=== PATIENT | female | born 1975 | race Caucasian/White ===

== ENCOUNTER 2018-01-29 11:39 | Emergency (ER) | payer BC ==
[2018-01-29 11:56] VITALS: BP 135/79
[2018-01-29] MEDS ORDERED: traMADol TAB* 50 MG PO ONE (12:32)
--- NOTE | 2018-01-29 12:41 | UC ---
Shoulder Pain HPI - HPI Summary HPI Summary: WOKE FROM SLEEP AT 3 AM THIS MORNING WITH LEFT SHOULDER PAIN AND INABILITY TO MOVE HER ARM AT THE SHOULDER. FELT A LITTLE TINGLY IN THE LEFT SIDE OF HER NECK YESTERDAY BUT OTHERWISE WAS IN HER USUAL STATE OF HEALTH. DENIES ANY TRAUMA. IS RIGHT-HAND DOMINANT. - History of Current Complaint Chief Complaint: UCUpperExtremity Stated Complaint: SHOULDER INJURY Time Seen by Provider: 01/29/18 12:23 Hx Obtained From: Patient Hx Last Menstrual Period: 01/08/18 Onset/Duration: Sudden Onset, Lasting Hours, Still Present Timing: Constant Severity Initially: Moderate Severity Currently: Moderate Location Of Pain: Is Discrete @ - LEFT SHOULDER Pain Intensity: 10 Pain Scale Used: 0-10 Numeric Character: Sharp Aggravating Factor(s): Movement Associated Signs And Symptoms: Negative: Swelling, Redness, Numbness/Tingling Related History: Dominant Hand Right - Allergies/Home Medications Allergies/Adverse Reactions: Allergies Allergy/AdvReac Type Severity Reaction Status Date / Time sumatriptan [From Imitrex] Allergy anaph Verified 01/29/18 11:56 PMH/Surg Hx/FS Hx/Imm Hx Endocrine History: Diabetes Other History Of: Negative For: Anticoagulant Therapy - Surgical History Surgical History: Yes Surgery Procedure, Year, and Place: tubal ligation - Family History Known Family History: Positive: Non-Contributory - Social History Alcohol Use: Occasionally Substance Use Type: None Smoking Status (MU): Never Smoked Tobacco Review of Systems All Other Systems Reviewed And Are Negative: Yes Constitutional: Positive: Negative Skin: Positive: Negative Respiratory: Positive: Negative Cardiovascular: Positive: Negative Gastrointestinal: Positive: Negative Musculoskeletal: Positive: Arthralgia, Decreased ROM, Myalgia Physical Exam Triage Information Reviewed: Yes Appearance: Well-Nourished, Pain Distress - MODERATE Vital Signs: Initial Vital Signs Temp 98.6 F 01/29/18 11:53 Pulse 84 01/29/18 11:53 Resp 17 01/29/18 11:53 BP 135/79 01/29/18 11:53 Pulse Ox 100 01/29/18 11:53 Vital Signs Reviewed: Yes Eyes: Positive: Conjunctiva Clear ENT: Positive: Hearing grossly normal Neck: Positive: Supple Respiratory: Positive: No respiratory distress, No accessory muscle use Cardiovascular: Positive: Pulses Normal Abdomen Description: Positive: Soft Musculoskeletal: Positive: ROM Limited @ - LEFT SHOULDER LIMITED IN BOTH ACTIVE AND PASSIVE ROM Neurological: Positive: Alert Psychological: Positive: Age Appropriate Behavior Skin: Negative: Rashes Diagnostics - Radiology LEFT SHOULDER XRAYS Radiology Interpretation Completed By: Radiologist Summary of Radiographic Findings: UNREMARKABLE Shoulder Course/Dx - Differential Dx/Diagnosis Provider Diagnosis: Adhesive capsulitis of left shoulder Discharge - Sign-Out/Discharge Documenting (check all that apply): Patient Departure All imaging exams completed and their final reports reviewed: Yes - Discharge Plan Condition: Stable Disposition: HOME Prescriptions: Cyclobenzaprine TAB* [Flexeril TAB*] 10 mg PO BID PRN #30 tab PRN Reason: Pain HYDROcodone/ACETAMIN 5-325 MG* [[place] 5-325 TAB*] 1 tab PO Q6H PRN #20 tab MDD 4 PRN Reason: Pain Naproxen [Naproxen 500 mg tab] 500 mg PO BID PRN #30 tablet PRN Reason: Pain Patient Education Materials: Adhesive Capsulitis (ED) Referrals: Joseph Palm MD [Medical Doctor] - 2 Weeks Wilian Cote [Primary Care Provider] - If Needed Additional Instructions: X-RAY OF YOUR LEFT SHOULDER TODAY IS UNREMARKABLE. WEAR THE SLING NEEDED. NAPROXEN TWICE DAILY FOR DISCOMFORT. HYDROCODONE FOR BREAKTHROUGH PAIN. TAKE MUSCLE RELAXER BEFORE BED. PHYSICAL THERAPY REFERRAL PROVIDED TODAY. FOLLOW-UP WITH ORTHOPEDICS WITHIN THE NEXT COUPLE OF WEEKS. ADHESIVE CAPSULITIS (FROZEN SHOULDER) What is a frozen shoulder? A frozen shoulder is a condition that causes the shoulder to be stiff and unable to move easily. When people have a frozen shoulder, the tissue around the shoulder joint gets thick and tight. This might happen after a persons shoulder gets hurt or if he or she has shoulder surgery. What are the symptoms of a frozen shoulder? People with a frozen shoulder usually have a stiff and painful shoulder and trouble reaching overhead or around to their lower back. Will I need tests? Probably not. Your doctor or nurse will talk with you and do an exam. Often that is all that is needed to diagnose frozen shoulder. But your doctor or nurse might want to do an imaging test, such as an X-ray or MRI scan. Imaging tests create pictures of the inside of the body. How is a frozen shoulder treated? In most cases, a frozen shoulder will get better on its own, but it can take months to heal completely. To help your shoulder get better, you can: -Rest your shoulder Avoiding raising your arm overhead, reaching, and lifting things. -Take a pain-relieving medicine Ask your doctor or nurse about taking an over -the-counter medicine for pain, such as acetaminophen (sample brand name: Tylenol), ibuprofen (sample brand names: Advil, Motrin), or naproxen (sample brand name: Aleve). -Ask your doctor about exercises that can help At first, the most important thing to do is to rest your shoulder. Later, when the worst of the pain has passed, ask your doctor if its safe to start trying some simple exercises. If he or she says its OK, you can slowly start to do certain exercises. After you are comfortable with simple range of motion exercises, your doctor, nurse, or physical therapist (exercise expert) can suggest some other exercises to make the shoulder muscles stronger. He or she can show you how to do these exercises and tell you when to start them and how often to do them. Any time you do shoulder exercises, make sure to start slowly and make the exercises harder over time. Also, know that some pain is normal, but its important not to push it. If you have sharp or tearing pain, stop what youre doing and let your doctor or nurse know. What if my shoulder doesnt get better? If your symptoms dont get better, talk with your doctor or nurse about other possible treatments, such as: -Getting a shot of medicine or fluid into the shoulder -Surgery - Billing Disposition and Condition Condition: STABLE Disposition: Home
== END 2018-01-29 13:37 | disposition home or self-care (01) ==
LOC: UCEAST 11:39
DX: M75.02 Adhesive capsulitis of left shoulder (principal); Z88.8 Allergy status to other drugs, medicaments and biological substances
CPT/HCPCS: 99213; A9270-GY; G0463

== ENCOUNTER 2018-02-05 08:32 | Inpatient (IN) | payer BC ==
[2018-02-05] MEDS ORDERED: ceFAZolin 1 GM ADVAN(*) 1 GM in NS 0.9% 50 ML* 50 ML IVPB ONE (09:12)
--- NOTE | 2018-02-05 09:27 | ED ---
Upper Extremity Pain - HPI Summary HPI Summary: Patient is a 42-year-old female presenting to the ED with left shoulder erythema , warmth and pain since last week. She was placed on Augmentin 2 days by her PCP, however she endorses worsening symptoms. She endorses fevers, sweats, chills. She's never had anything like this before. She denies any known insect bites or trauma to the area. Decreased range of motion. Denies any nausea, vomiting, numbness or tingling to the arm. She does endorse some pain to the anterior left chest wall, left sided neck pain and pain also radiating up into the shoulder. - History of Current Complaint Chief Complaint: EDExtremityUpper Stated Complaint: PAIN AND SWELLING IN LEFT SHOULDER Time Seen by Provider: 02/05/18 08:48 Hx Obtained From: Patient Hx Last Menstrual Period: 01/08/18 Mechanism Of Injury: Unknown Onset/Duration: Started Days Ago Timing: Constant Severity Initially: Severe Severity Currently: Severe Pain Location: Shoulder - left Character: Aching Aggravating Factor(s): Movement, Internal/External Rotation, Abduction, Adduction Alleviating Factor(s): Rest Associated Signs & Symptoms: Positive: Swelling, Redness. Negative: Weakness, Numbness/Tingling, Chest Pain, Neck Pain, Diaphoresis, Nausea, Vomiting Related History: Dominant Hand Right - Risk Factors Non-Orthopedic Risk Factor: Negative DVT Risk Factors: Negative Septic Arthritis Risk Factor: Negative Compartment Syndrome Risk Factors: Pain - Allergies/Home Medications Allergies/Adverse Reactions: Allergies Allergy/AdvReac Type Severity Reaction Status Date / Time sumatriptan [From Imitrex] Allergy anaph Verified 02/05/18 08:47 Home Medications: Home Medications Amoxicillin/Clavulanate TAB* [Augmentin TAB 875*] 1 tab PO BID 02/05/18 [ History Confirmed 02/05/18] Atorvastatin* [Lipitor*] 80 mg PO DAILY 02/05/18 [History Confirmed 02/05/18] Metformin HCl 500 mg PO BID 02/05/18 [History Confirmed 02/05/18] PMH/Surg Hx/FS Hx/Imm Hx Previously Healthy: Yes Endocrine/Hematology History: Reports: Hx Diabetes - po meds Denies: Hx Anticoagulant Therapy, Hx Thyroid Disease Cardiovascular History: Denies: Hx Hypertension, Hx Pacemaker/ICD Respiratory History: Denies: Hx Asthma, Hx Chronic Obstructive Pulmonary Disease (COPD) History: Denies: Hx Renal Disease Neurological History: Denies: Hx Dementia, Hx Seizures Psychiatric History: Denies: Hx Substance Abuse - Surgical History Surgery Procedure, Year, and Place: tubal ligation - Immunization History Date of Tetanus Vaccine: UNKNOWN Date of Influenza Vaccine: NO Hx Pertussis Vaccination: No Immunizations Up to Date: Yes Infectious Disease History: No Infectious Disease History: Denies: Hx Hepatitis, Hx Human Immunodeficiency Virus (HIV), Traveled Outside the [place] in Last 30 Days - Family History Known Family History: Positive: Non-Contributory - Social History Occupation: Employed Full-time Lives: With Family Alcohol Use: Occasionally Hx Substance Use: No Substance Use Type: Reports: None Smoking Status (MU): Never Smoked Tobacco Review of Systems Constitutional: Negative Negative: Fever, Chills, Fatigue, Skin Diaphoresis Negative: Palpitations, Chest Pain Negative: Shortness Of Breath, Cough Negative: Abdominal Pain, Vomiting, Diarrhea, Nausea Positive: no symptoms reported, see HPI Positive: Arthralgia - left shoulder, Myalgia Positive: Other - erythematous warm and swollen 4x4 area to the L clavicular area All Other Systems Reviewed And Are Negative: Yes Physical Exam Triage Information Reviewed: Yes Vital Signs On Initial Exam: Initial Vitals Temp Pulse Resp BP Pulse Ox 98 F 85 16 129/66 97 02/05/18 08:38 02/05/18 08:38 02/05/18 08:38 02/05/18 08:38 02/05/18 08:38 Vital Signs Reviewed: Yes Appearance: Positive: Ill-Appearing Skin: Positive: Diaphoretic Head/Face: Positive: Normal Head/Face Inspection Eyes: Positive: EOMI, YUNG, Conjunctiva Clear Neck: Positive: Supple Respiratory/Lung Sounds: Positive: Clear to Auscultation, Breath Sounds Present Cardiovascular: Positive: RRR, Pulses are Symmetrical in both Upper and Lower Extremities. Negative: Leg Edema Left, Leg Edema Right Musculoskeletal: Positive: Pain @ - erythematous warm and swollen 4x4 area to the L clavicular area Neurological: Positive: Alert, Oriented to Person Place, Time, Speech Normal Psychiatric: Positive: Normal, Affect/Mood Appropriate Diagnostics - Vital Signs Vital Signs Temp Pulse Resp BP Pulse Ox 02/05/18 08:38 98 F 85 16 129/66 97 - Laboratory Result Diagrams: 02/05/18 09:18 02/05/18 09:27 Lab Statement: Any lab studies that have been ordered have been reviewed, and results considered in the medical decision making process. Course/Dx - Course Course Of Treatment: On physical examination, there is a 5 x 5 cm erythematous, warm, slightly elevated area just over the left clavicle without significant extension of erythema to the neck and chest wall. However, she endorses tenderness to these area and also radiation into the deltoid. She has been on Augmentin 2 days per her PCP. Despite this, she continues to worsen. She is endorsing fevers, sweats, chills. She's never had anything like this before. Endorses diabetic history 2 years. She has not been able to move without discomfort x [address] chest with IV contrast obtained: IMPRESSION: #. Soft tissue infection over the dorsal aspect of the LEFT shoulder at the level of the. distal third of the clavicle associated loculated abscess collection measuring up to 4 x 4. by 2.3 cm primarily involving the subcutaneous tissue plane as well as the superficial. aspect of the deltoid muscle. #. Associated reactive LEFT axillary adenopathy. #. Trace pleural effusions and basilar atelectasis. #. [place] images saved on the [facility]. Discussed case with Dr. Angel who agrees to see patient in ED. Subsequently performed I and D bedside and cultures obtained and sent. During ED visit total of 6mg morphine given, Kefzol, Zosheyn, fluids, kept NPO. Discussed with hospitalist, Dr. Ignacio who will admit for observation with possibility of surgical intervention tomorrow. - Diagnoses Differential Diagnosis/HQI/PQRI: Positive: Other - septic joint, cellulitis, abscess, myositis Provider Diagnoses: Abscess - Physician Notifications Discussed Care of Patient With: Antolin Angel Instructed by Provider To: Admit As Inpatient Discharge - Sign-Out/Discharge Documenting (check all that apply): Patient Departure - Discharge Plan Condition: Good Disposition: ADMITTED TO [facility] - Billing Disposition and Condition Condition: GOOD Disposition: Admitted to [facility]
[2018-02-05 09:48] LABS: Hematocrit 37 % (35-47); Mean Corpuscular HGB Conc 33 g/dl (31-36); Mean Corpuscular Hemoglobin 28 pg (27-31); Mean Corpuscular Volume 85 fL (80-97); Mean Platelet Volume 6.8 fL (7.4-10.4); Platelet Count 330 10^3/ul (150-450); Red Blood Count 4.29 10^6/ul (4.00-5.40); Red Cell Distribution Width 14 % (10.5-15); White Blood Count 17.3 10^3/ul (3.5-10.8)
[2018-02-05 10:03] LABS: Albumin 3.6 g/dL (3.2-5.2); Albumin/Globulin Ratio 0.9 (1-3); BUN/Creatinine Ratio 15.2 (8-20); C Reactive Protein 246.57 mg/L (<8.01); Calcium 9.2 mg/dL (8.6-10.3); EGFR African American 119.4 (>60); EGFR Non-African American 98.7 (>60); Globulin 3.8 g/dL (2-4); Potassium 3.6 mmol/L (3.5-5.0); Total Bilirubin 0.4 mg/dL (0.2-1.0); Total Protein 7.4 g/dL (6.4-8.9)
[2018-02-05 10:15] LABS: Immature Granulocytes 4 % (0-9); Lymphocytes % 16 %; Metamyelocytes % 1 % (0-2); Monocytes % 5 %; Myelocytes % 2 % (0-1); Neutrophil % 74 %
[2018-02-05 10:16] LABS: ABS Neutrophils 13.5 10^3/ul (1.5-7.7)
[2018-02-05 10:17] LABS: ABS Eosinophils 0.2 10^3/ul (0-0.6)
[2018-02-05] MEDS ORDERED: Iodixanol* (CONTRAST) 320 MG/ML 100 ML SDV IV ONE (10:22)
[2018-02-05 10:55] LABS: Erythrocyte Sed Rate 103 mm/Hr (0-14)
[2018-02-05] MEDS ORDERED: Piperacillin/Tazobac ADVAN(*) 3.375 GM in NS 0.9% 100 ML* 100 ML IVPB ONE (11:24)
[2018-02-05] MEDS ORDERED: NS 0.9% 1000 ML** 1,000 ML IV SCH (11:30)
[2018-02-05] MEDS ORDERED: Morphine VIAL* 4 MG/ML VIAL (1 ml vial) IV ONE (11:47)
[2018-02-05] MEDS ORDERED: NS 0.9% 1000 ML** 1,000 ML IV ONE (11:47)
[2018-02-05] MEDS ORDERED: Zosyn per Pharmacy* NOTE FOLLOW UP SCH (12:00)
[2018-02-05] MEDS ORDERED: Vancomycin per Pharmacy* NOTE FOLLOW UP SCH (12:00)
[2018-02-05] MEDS ORDERED: Vancomycin(*) 1,500 MG in NS 0.9% 250 ML* 250 ML IVPB ONE (12:30)
[2018-02-05] MEDS ORDERED: Benzocaine/Butamben/Tetracain* SPRAY TOPICAL ONE (12:38)
[2018-02-05] MEDS ORDERED: Morphine VIAL* 4 MG/ML VIAL (1 ml vial) ONE (12:43)
[2018-02-05] MEDS ORDERED: Ondansetron INJ* 2 MG/ML VIAL IV PRN (13:10)
[2018-02-05] MEDS: Morphine VIAL* 4 MG/ML VIAL (1 ml vial) IV PRN (13:10)
[2018-02-05] MEDS: HYDROcodone/ACETAMIN 5-325 MG* 1 TAB PO PRN ×2 (15:55→22:18)
[2018-02-05] MEDS ORDERED: Dextrose 50% Syringe 50 ML* 25 GM/50 ML SYRINGE IV PUSH PRN (17:10)
[2018-02-05] MEDS: metFORMIN* 500 MG TAB PO SCH (18:30)
[2018-02-05] MEDS: ZOSYN 3.375 GM Q8H per EXTENDED INFUSION IVPB SCH ×4 (19:41→23:12)
--- NOTE | 2018-02-05 21:17 | HP ---
CC: JOLIE Moore* HISTORY AND PHYSICAL: DATE OF ADMISSION: 02/05/18 PRIMARY CARE PROVIDER: JOLIE Moore CHIEF COMPLAINT: Left shoulder pain. HISTORY OF PRESENT ILLNESS: Ms. Villarreal is a 42-year-old female who has a history of diabetes and hyperlipidemia, who presents to the emergency room with complaints of approximately 1 week of left shoulder pain, redness, and swelling. The patient states that 1 week ago, this past Wednesday, she noted that there was some mild discomfort in the left superior shoulder. By Wednesday a.m. , she states that she cannot move her arm around at all. She states she went to urgent care. At that point, she was prescribed pain medication and Flexeril. By this past , she was identified to have an abscess on the superior aspect of the left shoulder. She was started on Augmentin. She states that has grown in size about 10 times over the last 2 days. She states that the pain has been quite severe. She has had fevers up to 103 as well as chills/rigors. The area is noted to be red. It is indurated and tender to palpation. The patient denies any IV drug use. PAST MEDICAL HISTORY: 1. Type 2 diabetes. 2. Hyperlipidemia. PAST SURGICAL HISTORY: Tubal ligation. MEDICATIONS: 1. Metformin 500 mg p.o. b.i.d. x1 week (will complete on 02/09/18, then 1000 mg daily). 2. Naproxen 500 mg p.o. b.i.d. p.r.n. pain. 3. [place] 5/325 one tab p.o. q.6 hours p.r.n. pain. 4. Flexeril 10 mg p.o. b.i.d. p.r.n. spasm. 5. Lipitor 80 mg p.o. daily. 6. Augmentin 875 mg 1 tab p.o. b.i.d. ALLERGIES: IMITREX. FAMILY HISTORY: Mom is living, she is 59, has a history of diabetes and hypertension. Dad is also living. He has diabetes. SOCIAL HISTORY: The patient does not smoke. She drinks alcohol on occasion. 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 She is . She has 3 children. Her , Keyshawn, is her healthcare proxy. REVIEW OF SYSTEMS: A complete 11-system review of systems is obtained. Pertinent positives and negatives are as per HPI, and in addition, the patient states that her appetite has been very poor and she has felt dizzy recently. PHYSICAL EXAMINATION GENERAL: The patient is a well-developed, middle-aged female seen sitting in the stretcher, in moderate distress after undergoing I and D with Dr. Angel. VITAL SIGNS: Blood pressure 98/68, pulse 80, respirations 16, temp 98, O2 sat 97% on room air. HEENT: Pupils are equal and round. Extraocular muscles are intact. Oropharynx is clear. Oral mucosa is moist. There is no submandibular, cervical or supraclavicular adenopathy. Thyroid is not enlarged. No thyroid nodules noted. PULMONARY: Lungs are clear to auscultation bilaterally. CARDIAC: Normal S1, S2. Regular rate and rhythm. I do not appreciate any murmurs. ABDOMEN: Bowel sounds are present. Abdomen is soft, nontender, and nondistended. MUSCULOSKELETAL: There is no cyanosis or clubbing in the digits. There is full active range of motion of the lower extremities and right upper extremity. NEUROLOGIC: Cranial nerves II to XII are grossly intact. Sensation is intact to light touch throughout. Strength is normal. PSYCHIATRIC: The patient is alert. She is oriented x3. Affect appears appropriate. SKIN: Warm and dry. There are no rashes. The area of abscess was just I and D 'd by Dr. Angel at the time of my arrival to the patient's room. I did not undo the bandage. Dr. Angel indicates that the area was indurated and red. DIAGNOSTIC STUDIES/LAB DATA: Labs: WBC 17.3, hemoglobin 12.0, hematocrit 37, platelets 330. Sodium 134, potassium 3.6, chloride 100, CO2 24, BUN 10, creatinine 0.66, glucose 253, calcium 9.2. Bilirubin 0.4, AST 12, ALT 17, alk phos 113, CRP 246.57, albumin 3.6. CT chest reveals soft tissue infection over the dorsal aspect of the left shoulder at the level of the distal third of the clavicle associated with loculated abscess collection measuring up to 4 x 4 x 10.3 cm primarily involving the subcutaneous tissue plane as well as the superficial aspect of the deltoid muscle. There is associated left reactive axillary adenopathy. There is trace pleural effusion and basilar atelectasis. ASSESSMENT AND PLAN: Ms. Villarreal is a 42-year-old diabetic who had not been taking her medications until just recently, who presents to the emergency room with complaints of 1 week of progressive left shoulder pain and infection. 1. Abscess of the left shoulder. The patient was seen by Dr. Angel, and incision and drainage has been performed. He will be following up the patient later today to determine if she needs to go to the OR for further washout or any further imaging. For now, the patient will be started on vancomycin and Zosyn while awaiting the culture from the incision and drainage. From a preoperative evaluation standpoint, the patient will need an EKG, which I am obtaining now. She does not give me any history to make me concerned for proceeding to the OR as long as her EKG looks acceptable and without concerning features. 2. Type 2 diabetes. The patient will be continued on her usual dose of metformin 500 mg p.o. twice daily, and in addition, lispro sliding scale will be ordered. Her hemoglobin A1c on 01/24/18, was elevated at 8.1%. 3. Hyperlipidemia. We will continue Lipitor at home dose. 4. DVT prophylaxis: According to the Adult Thrombosis Prophylaxis Risk Factor Assessment Guide, the patient has a total risk factor score of 2 making her moderate risk for now. Ambulation will be utilized as DVT prophylaxis; however , the patient has a prolonged hospitalization. Subcutaneous heparin should be initiated. 5. Code status is full. TIME SPENT: Sixty-five minutes was spent admitting this patient. [id number]/[facility] #: [id number] DAVID
[2018-02-05] MEDS: Insulin LISPRO* 1 UNITS UNIT SUBCUT SCH (22:19)
--- NOTE | 2018-02-05 23:20 | CONS ---
CONSULTATION REPORT: DATE OF CONSULT: 02/05/18 REASON FOR CONSULT: Left shoulder swelling and pain, possible infection. HISTORY OF PRESENT ILLNESS: The patient is a 42-year-old woman with poorly controlled diabetes zohreh colindres who presented to the emergency room today with left shoulder pain, swelling, and erythema, which has been present for approximately 7 days. The patient describes having been diagnosed with diabetes for the past 2 years since approximately th e age of 40. The patient acknowledges that her glycemic control has not been excellent and states th at in the past her hemoglobin A1c has been as high as 9. The patient's son acknowledges that she cou ld be better about taking her diabetes medications. The patient states that the symptoms started approximately 7 days ago on 01/29/18. The patient awoke in the morning with some soft tissue swelling and pain overlying the left clavicle. At that time nor at any point in the recent past has the patient had any cut in the overlying skin. She denied any i nsect bite. No spider bite. No abrasion. No laceration. No cut of any type. No similar symptoms in the past. No history of prior left shoulder injury or left shoulder pain. The patient's left shoulder pain starting 7 days ago prevented her from moving fully her left shoulde r. This limitation in motion was secondary to pain about the shoulder. Throughout the week, the symptoms worsened. The patient went to Urgent Care on 01/29/18. In the note from that urgent care encounter, the patien jonathan was noted to have symptoms starting that morning at 3 a.m. on 01/29/18. Her greatest complaint at that time was inability to move the shoulder. She also acknowledged some tingling on the left neck. It should be noted that the patient is right-hand dominant. The patient was treated with cyclobenzaprine muscle relaxant as well as Anita for pain and naproxen. Her diagnosis given was of adhesive capsulitis. The patient was recommended to follow up with Ortho pedic Surgery. The patient had x-rays obtained that day. She was given a sling to manage her discom fort. The patient did not follow up with Orthopedic Surgery that same week. Instead, she went [facility] approximately 2 days ago. She was started on an antibiotic, oral, Augmentin. She states that she has been on that for 2 days, but that the pain, limitation of range of motion, swelli ng, and erythema has increased despite being on the antibiotic. The patient has had fever, sweats, and chills at home. The patient describes having a temperature as elevated as 103 degrees Fahrenheit. PAST MEDICAL HISTORY: Diabetes, hypercholesterolemia. PAST SURGICAL HISTORY: Tubal ligation. HOME MEDICATIONS: 1. Atorvastatin. 2. Metformin. 3. Augmentin. The Augmentin for the past 2 days starting 02/03/18. ALLERGIES: SUMATRIPTAN (anaphylaxis). SOCIAL HISTORY: The patient lives with her and has at least 1 child. Right-hand dominant. T he patient admits to perhaps poor medical adherence for diabetes mellitus. The patient is fully empl oyed. REVIEW OF SYSTEMS: Fever, sweats, and chills have been present. No headache, chest pain, shortness of breath, heart palpitations. No nausea or vomiting. No abdominal pain. No numbness or tingling d escribed today, although the patient had described some tingling of the left neck on 01/29/18. The p atient has been diaphoretic. PHYSICAL EXAM: No acute distress. Alert and oriented, appropriate mood and affect. Appropriate hunter ss and hygiene. Well-coordinated bilateral upper and lower extremities. The patient was examined in an emergency room bay. The patient appears slightly sweaty. The patient did not appear toxic. Most recent vital signs were obtained at 7:15 this evening. They show a body temperature of 98.3 deg zac Fahrenheit, pulse 88, blood pressure 108/48, respiratory of 20, and oxygen saturation 98% on alverto m air. The patient has been afebrile today with a T-max of 98.3 degrees Fahrenheit. At her 01/29/18 visit, her temperature was 98.6 degrees Fahrenheit. The patient's left shoulder has soft tissue swelling and erythema focally superior to the midshaft of the clavicle and posterior to the clavicle in the area of the trapezius muscle. Tenderness to palpa tion is present there, as is some induration. This is a focal area of swelling. Passive range of motion of the left shoulder reveals pain and the patient not tolerating passive forw alem flexion and abduction of more than 20 degrees because of discomfort in the area of the collection , soft tissue swelling. The patient does tolerate external rotation of 20 degrees to internal rotati on to 70 degrees with the arm at the side. Neurovascularly intact distally. DIAGNOSTIC STUDIES/LAB DATA: White blood cell count 17.3 with a neutrophil count of 74%. ESR 103. CRP of 246.57. Blood glucose of 253 and later of 216. I do not see a hemoglobin A1c value. Imaging: Left shoulder x-rays obtained 01/29/18 were reviewed by me. These show no fractures. Ther e is a small curve at the anterior aspect of the acromion. No significant degenerative changes prese nt. Possibly just in the context of later findings, there may be some lucency to the distal clavicle representing possible subchondral cysts. CT scan of the chest with contrast had been ordered by emergency room staff. I reviewed this. It de monstrated what looked to be a fluid collection, abscess measuring 4 x 4 x 2.3 cm in the subcutaneous tissue superior and posterosuperior to the midshaft left clavicle as well as some reactive left axil jeanine adenopathy. Trace pleural effusion and basilar atelectasis. ASSESSMENT: Left shoulder subcutaneous abscess. PLAN: 1. I have discussed the patient's diagnosis with her and her son in the emergency department. 2. I had some concern regarding the patient's pain with passive range of motion of the shoulder, but thought that this could be due only to a subcutaneous abscess. However, I wanted to make sure that t his was not related to infection of the AC joint or glenohumeral joint of the left shoulder. 3. Radiology had felt that the abscess was localized to the subcutaneous space on the CT scan with c ontrast of the chest and I discussed this with them. 4. I decided to perform an incision and decompression in the emergency department. I did this after speaking with the patient. My intentions were severalfold. I wanted to get a sample of the infected material so that we could target our antibiotic coverage. I also wanted to provide the patient with some immediate pain relief as she was clearly in discomfort in the emergency room. I also thought i t would be good to know if this fully relieved her pain or if the patient still had pain which would make me more suspicious of a possible deeper infection that did not show up on CT scan with contrast. PROCEDURE: Incision and decompression, debridement, left shoulder subcutaneous tissue performed in t he emergency room. Verbal consent, sterile technique, tolerated well. The patient was given several doses of morphine IV by emergency room nursing. I prepped the left evelio ulder area overlying the fluid collection, apparent. I cleaned the skin with ChloraPrep. I injected lidocaine 1% approximately 5 cc in the area of the planned incision. I waited 5 minutes until the s kin was numb. I then performed a skin incision, vertical in line with Elodia's lines. This was appr oximately 2 cm in length. Initially, there was only blood. I used a hemostat to dissect into the perkins bcutaneous tissue and then there was some pus that emanated. There was significant pus that emanated. A significant volume of pus was produced from this skin incision. I manipulated the shoulder in th e vicinity of the incision to express a significant quantity of pus. I obtained 2 culture swabs and these were sent for aerobic and anaerobic cultures. I continued to express the pus. I then injected 30 cc of sterile saline and expressed that from the wound. I then took half-inch sterile packing an d packed the wound. I left the wound open. I did not close it and I left packing in it. I then plac ed a dry sterile dressing consisting of 4x4s and ABD. I performed an exam of the patient's left shoulder immediately after the procedure. She tolerated mor e movement of the left shoulder passively. I then returned to her bedside 2 to 3 hours later. The p atient was able to tolerate 45 degrees of external to 70 degrees of internal rotation with the arm at the side. The patient certainly tolerated more passive forward flexion or abduction, but I would no t say she tolerated more than 45 degrees. This was concerning for possible deeper infection. I ordered an urgent MRI of the left shoulder to assess for the exact shape of the subcutaneous absces s. I also wanted to see if there was any involvement of the AC and glenohumeral joints, left shoulde r. MRI results returned. I read the report, reviewed the images, and discussed with the radiologist. T here was a clear subcutaneous abscess. There was bone marrow edema of the distal clavicle, the dista l 3 cm, and to a lesser extent some adjacent acromion. A small AC joint effusion and some erosions o f the distal clavicle, hard to determine if those erosions are acute or chronic. Radiologist thought that AC joint fluid was likely continuous with the subcutaneous abscess. There was no significant f luid noted in the glenohumeral joint. Only some minimal fluid that the radiologist believed was like ly a small reactive effusion. Gram stain results were reviewed. They show Gram-positive cocci 2+. Recommend broad spectrum IV antibiotics. The patient was started on vancomycin and Zosyn by the Hosp italist Service. The patient will be admitted to the Hospitalist Service, medically managed, and we will obtain preope rative optimization and clearance. N.p.o. after midnight. To the operating room in the morning for irrigation and debridement, arthroscopic, of the left should er glenohumeral joint as well as subacromial space as well as a likely distal clavicle resection. I will also perform an open incision, irrigation, debridement of the patient's subcutaneous abscess abo ut the superior shoulder. I have considered operative treatment today. However, MRI results were only returned late in the aft [facility]. The patient has had symptoms already for 7 days. She is on IV antibiotics. There was no leandro ar connection yet of infection between the AC joint and glenohumeral joint. [id number]/[facility] #: [id number]
[2018-02-06] MEDS: Morphine VIAL* 4 MG/ML VIAL (1 ml vial) IV PRN ×2 (01:46→05:46)
[2018-02-06] MEDS ORDERED: Midazolam* 1 MG/ML 2 ML VIAL (2 MG) ONE (08:13)
[2018-02-06] MEDS ORDERED: Succinylcholine* 20 MG/ML 10 ML VIAL ONE (08:13)
[2018-02-06] MEDS ORDERED: Lidocaine 2% PF * 5 ML VIAL ONE (08:13)
[2018-02-06] MEDS ORDERED: fentaNYL* 50 MCG/ML 2 ML VIAL (100 MCG VIAL) ONE (08:13)
[2018-02-06] MEDS ORDERED: Propofol* 10 MG/ML 20 ML BTL ONE (08:13)
[2018-02-06] MEDS ORDERED: EPINEPHRINE 1 MG/ML 1 ML VIAL ONE ×2 (08:28→11:29)
[2018-02-06] MEDS: Insulin LISPRO* 1 UNITS UNIT SUBCUT SCH ×4 (08:39→21:06)
[2018-02-06] MEDS: metFORMIN* 500 MG TAB PO SCH ×2 (08:41→17:37)
[2018-02-06] MEDS: Atorvastatin* 80 MG TAB PO SCH (08:42)
[2018-02-06] MEDS ORDERED: ceFAZolin 1 GM ADVAN(*) 1 GM ADDV.VIAL IVPB ONE (08:51)
[2018-02-06] MEDS ORDERED: Bupivacaine 0.5% W/EPI SDV* 30 ML VIAL ONE (09:37)
[2018-02-06] MEDS ORDERED: Ondansetron INJ* 2 MG/ML VIAL ONE (09:59)
[2018-02-06] MEDS ORDERED: Metoclopramide IV* 5 MG/ML 2 ML VIAL ONE (09:59)
[2018-02-06] MEDS ORDERED: Dexamethasone IV* 4 MG/ML 1 ML (4 MG) ONE (09:59)
[2018-02-06] MEDS ORDERED: Ketorolac INJ* 30 MG/ML 1 ML VIAL ONE (09:59)
[2018-02-06] MEDS ORDERED: oxyCODONE TAB* 5 MG TAB PO PRN (10:33)
[2018-02-06] MEDS ORDERED: Acetaminophen TAB* 325 MG PO PRN (10:33)
[2018-02-06] MEDS ORDERED: DiMENhydriNATE IV* 50 MG/ML VIAL IV PUSH PRN (10:33)
[2018-02-06] MEDS ORDERED: Naloxone* 0.4 MG/ML 1 ML VIAL IV PRN (10:33)
[2018-02-06] MEDS ORDERED: Magnesium Hydroxide LIQ* 30 ML UDC PO PRN (11:26)
[2018-02-06] MEDS ORDERED: Morphine VIAL* 4 MG/ML VIAL (1 ml vial) IV PRN (11:26)
[2018-02-06] MEDS ORDERED: Bisacodyl SUPP* 10 MG SUPP PR PRN (11:26)
[2018-02-06] MEDS ORDERED: Cyclobenzaprine TAB* 10 MG PO PRN (11:26)
[2018-02-06] MEDS ORDERED: oxyCODONE/Acetamin 5/325 MG* TAB PO PRN ×2 (11:26)
[2018-02-06] MEDS ORDERED: diPHENhydraMINE IV* 50 MG/ML 1 ml VIAL (BENADRYL) IV PRN (11:26)
[2018-02-06] MEDS ORDERED: Ondansetron INJ* 2 MG/ML VIAL IV PRN (11:26)
[2018-02-06] MEDS ORDERED: HYDROmorphone INJ1* 1 MG/ML SYRINGE ONE (11:58)
[2018-02-06] MEDS: HYDROmorphone INJ1* 1 MG/ML SYRINGE IV PRN ×3 (11:59→12:22)
[2018-02-06] MEDS ORDERED: Lactated Ringers 1000 ML Bag* 1,000 ML IV SCH (12:00)
[2018-02-06] MEDS ORDERED: Vancomycin per Pharmacy* NOTE FOLLOW UP SCH (12:00)
[2018-02-06] MEDS ORDERED: Insulin LISPRO* 1 UNITS UNIT SUBCUT ONE (12:08)
[2018-02-06] MEDS: ZOSYN 3.375 GM Q8H per EXTENDED INFUSION IVPB SCH ×6 (12:16→17:27)
[2018-02-06] MEDS ORDERED: oxyCODONE TAB* 5 MG TAB ONE (12:18)
[2018-02-06 14:44] LABS: Hematocrit 34 % (35-47); Hemoglobin 11.2 g/dl (12.0-16.0); Mean Corpuscular HGB Conc 33 g/dl (31-36); Mean Corpuscular Hemoglobin 28 pg (27-31); Mean Corpuscular Volume 86 fL (80-97); Mean Platelet Volume 6.2 fL (7.4-10.4); Platelet Count 355 10^3/ul (150-450); Red Blood Count 3.97 10^6/ul (4.00-5.40); Red Cell Distribution Width 14 % (10.5-15); White Blood Count 18.8 10^3/ul (3.5-10.8)
[2018-02-06] MEDS: Acetaminophen TAB* 325 MG PO SCH ×2 (14:45→19:40)
[2018-02-06] MEDS ORDERED: Vancomycin(*) 1,500 MG in NS 0.9% 250 ML* 250 ML IVPB ONE (15:00)
[2018-02-06 15:39] LABS: Immature Granulocytes 13 % (0-9); Lymphocytes % 12 %; Monocytes % 1 %; Neutrophil % 73 %
[2018-02-06 15:40] LABS: ABS Basophils 0.1 10^3/ul (0-0.2); ABS Eosinophils 0.1 10^3/ul (0-0.6); ABS Lymphocytes 2.3 10^3/ul (1.0-4.8); ABS Monocytes 0.4 10^3/ul (0-0.8); ABS Neutrophils 15.9 10^3/ul (1.5-7.7); ABS Nucleated RBC 0 10^3/ul; Eosinophil % 0.3 %; Lymphocyte % 12.5 %; Nucleated Red Blood Cells % 0.1
[2018-02-06] MEDS ORDERED: NS 0.9% 1000 ML** 1,000 ML IV SCH (16:30)
[2018-02-06] MEDS: oxyCODONE TAB* 5 MG TAB PO PRN (17:28)
--- NOTE | 2018-02-06 18:09 | PN ---
Subjective Date of Service: 02/06/18 Interval History: Seen after OR today Pain well controlled No SOB, cough, N/V, CP Objective Active Medications: Acetaminophen (Tylenol Tab*) 975 mg PO Q8H [facility] Last Admin: 02/06/18 14:45 Dose: 975 mg Hydrocodone Bitart/Acetaminophen ([place] 5-325 Tab*) 1 tab PO Q6H PRN PRN Reason: PAIN Last Admin: 02/05/18 22:18 Dose: 1 tab Atorvastatin Calcium (Lipitor*) 80 mg PO DAILY [facility] Last Admin: 02/06/18 08:42 Dose: Not Given Bisacodyl (Dulcolax Supp*) 10 mg SC DAILY PRN PRN Reason: constipation Cyclobenzaprine HCl (Flexeril Tab*) 5 mg PO TID PRN PRN Reason: SPASMS Dextrose (D50w Syringe 50 Ml*) 12.5 gm IV PUSH .FOR FS < 60 - SS PRN PRN Reason: FS < 60 Diphenhydramine HCl (Benadryl Iv*) 25 mg IV Q6H PRN PRN Reason: itching Docusate Sodium (Colace Cap*) 100 mg PO BID [facility] Heparin Sodium (Porcine) (Heparin Vial(*)) 5,000 units SUBCUT Q12HR [facility] Piperacillin Sod/Tazobactam (Sod 3.375 gm/ Sodium Chloride) 100 mls @ 25 mls/ hr IVPB Q8H [facility] Last Admin: 02/06/18 17:27 Dose: 25 mls/hr Sodium Chloride (Ns 0.9% 1000 Ml*) 1,000 mls @ 75 mls/hr IV PER RATE [facility] Stop: 02/07/18 05:49 Last Admin: 02/06/18 16:34 Dose: 75 mls/hr Insulin Human Lispro (Humalog*) 0 units SUBCUT ACHS [facility]; Protocol Last Admin: 02/06/18 17:27 Dose: 9 unit Lactulose (Lactulose*) 30 ml PO Q6H PRN PRN Reason: constipation Magnesium Hydroxide (Milk Of Magnesia Liq*) 30 ml PO BID [facility] Magnesium Hydroxide (Milk Of Magnesia Liq*) 30 ml PO Q6H PRN PRN Reason: constipation Metformin HCl (Glucophage*) 500 mg PO BID WITH MEALS [facility] Last Admin: 02/06/18 17:37 Dose: 500 mg Morphine Sulfate (Morphine Vial*) 4 mg IV Q4H PRN PRN Reason: PAIN - MILD Last Admin: 02/06/18 05:46 Dose: 4 mg Morphine Sulfate (Morphine Vial*) 2 mg IV Q2H PRN PRN Reason: PAIN Ondansetron HCl (Zofran Inj*) 4 mg IV Q6H PRN PRN Reason: NAUSEA Ondansetron HCl (Zofran Inj*) 4 mg IV Q6H PRN PRN Reason: nausea Oxycodone HCl (Roxycodone Tab*) 10 mg PO Q4H PRN PRN Reason: PAIN - SEVERE Last Admin: 02/06/18 17:28 Dose: 10 mg Oxycodone/Acetaminophen (Percocet 5/325 Tab*) 1 tab PO Q4H PRN PRN Reason: PAIN Oxycodone/Acetaminophen (Percocet 5/325 Tab*) 2 tab PO Q4H PRN PRN Reason: PAIN Pharmacy Consult (Zosyn Per Pharmacy*) 1 note FOLLOW UP .ZOSYN PER PHARMACY [facility] Pharmacy Consult (Vancomycin Per Pharmacy*) 1 note FOLLOW UP .VANC PER PHARMACY [facility] Vital Signs - 8 hr 02/06/18 02/06/18 02/06/18 11:26 11:40 11:45 Temperature 97.6 F 97.2 F Pulse Rate 78 81 83 Respiratory 16 14 14 Rate Blood Pressure 115/65 132/80 153/83 (mmHg) O2 Sat by Pulse 97 96 94 Oximetry 02/06/18 02/06/18 02/06/18 11:50 11:55 11:59 Temperature Pulse Rate 82 79 Respiratory 14 9 14 Rate Blood Pressure 142/88 139/83 (mmHg) O2 Sat by Pulse 93 97 Oximetry 02/06/18 02/06/18 02/06/18 12:00 12:10 12:15 Temperature Pulse Rate 81 77 Respiratory 14 14 15 Rate Blood Pressure 151/85 118/92 (mmHg) O2 Sat by Pulse 97 95 Oximetry 02/06/18 02/06/18 02/06/18 12:19 12:22 12:30 Temperature Pulse Rate 76 Respiratory 16 16 14 Rate Blood Pressure 145/75 (mmHg) O2 Sat by Pulse 95 Oximetry 02/06/18 02/06/18 02/06/18 12:45 13:00 13:33 Temperature 97.2 F 97.6 F Pulse Rate 75 75 78 Respiratory 13 14 16 Rate Blood Pressure 135/73 123/78 115/65 (mmHg) O2 Sat by Pulse 94 94 97 Oximetry 02/06/18 02/06/18 02/06/18 14:00 14:45 16:00 Temperature 97.6 F Pulse Rate 70 Respiratory 16 16 Rate Blood Pressure 116/65 (mmHg) O2 Sat by Pulse 99 94 Oximetry 02/06/18 02/06/18 02/06/18 16:38 17:17 17:28 Temperature 97.4 F Pulse Rate 72 Respiratory 18 16 16 Rate Blood Pressure 115/63 (mmHg) O2 Sat by Pulse 94 Oximetry Oxygen Devices in Use Now: None Appearance: NAD Eyes: No Scleral Icterus Ears/Nose/Mouth/Throat: NL Teeth, Lips, Gums, Clear Oropharnyx Neck: NL Appearance and Movements; NL JVP, Trachea Midline Respiratory: Symmetrical Chest Expansion and Respiratory Effort Cardiovascular: NL Sounds; No Murmurs; No JVD, RRR Abdominal: NL Sounds; No Tenderness; No Distention, No Hepatosplenomegaly Extremities: - - left shoulder wrapped with drain in place Neurological: Alert and Oriented x 3 Result Diagrams: 02/06/18 14:34 02/05/18 09:27 Microbiology and Other Data: Microbiology 02/06/18 11:02 Skin and Soft Tissue MRSA/MSSA (PCR - Final Shoulder Left Mrsa Negative S.aureus Positive Gram Stain - Final 02/06/18 10:29 Gram Stain - Final Shoulder Left 02/05/18 12:49 Skin and Soft Tissue MRSA/MSSA (PCR - Final Shoulder Left Mrsa Negative S.aureus Positive Gram Stain - Final Wound Culture - Preliminary Staphylococcus Aureus 02/05/18 09:34 Aerobic Blood Culture - Preliminary Blood Venous No Growth Day 1 Anaerobic Blood Culture - Preliminary No Growth Day 1 02/05/18 09:27 Aerobic Blood Culture - Preliminary Blood Venous No Growth Day 1 Anaerobic Blood Culture - Preliminary No Growth Day 1 Assess/Plan/Problems-Billing Assessment: 42 yo F pw left shoulder pain found with abscess which was continuous with AC joint sp OR today - Patient Problems (1) Abscess Comment: Left shoulder SQ abscess drained in ED 02/06 OR today with operative report pending. Washout and potentially distal clavical resection with drain left in place c/w broad spectrum abx IVF (2) Diabetes Comment: ISS metformin (3) DVT prophylaxis Comment: Q
--- NOTE | 2018-02-06 19:05 | OP ---
OPERATIVE REPORT: DATE OF OPERATION: 02/06/18 DATE OF : 77 SURGEON: Dr. Antolin Angel. FOAMING MACHINE OPERATOR: JOLIE Cevallos. A physician operational assistant was required for the length of the procedure for assistance with positioning, instrumentation, retraction and closure. ANESTHESIOLOGIST: Dr. Lyly Prery. ANESTHESIA: General. PRE-OP DIAGNOSES: 1. Left shoulder AC joint infection. 2. Left shoulder AC joint superficial subcutaneous abscess. 3. Right shoulder possible glenohumeral joint infection. 4. Possible early osteomyelitis left shoulder distal clavicle. POST-OP DIAGNOSES: 1. Left shoulder AC joint infection. 2. Left shoulder superficial subcutaneous abscess. 3. No clear left shoulder glenohumeral joint infection. 4. Possible early osteomyelitis with osteoarthritis left shoulder AC joint and distal clavicle. 5. Left shoulder very low grade partial thickness undersurface supraspinatus tear. OPERATIVE PROCEDURE: 1. Left shoulder arthroscopic irrigation and debridement, glenohumeral joint, acromioclavicular joint. 2. Left shoulder arthroscopic subacromial bursectomy. 3. Left shoulder arthroscopic distal clavicle resection. 4. Left shoulder open incision irrigation and debridement, superior shoulder area subcutaneous tissue. 5. Left shoulder placement of drain subcutaneous. 6. Left shoulder arthroscopic debridement undersurface low grade supraspinatus tear. IV FLUIDS: See Anesthesia note. ANTIBIOTICS: Ancef 1 g IV just prior to incision. The patient had been on vancomycin and Zosyn preoperatively. [id number] TIME: 60 minutes. ARTHROSCOPY FLUID UTILIZED: 8.5 bags, each with 3 L for a total of 25.5 L utilized with the arthroscopic as well as the open irrigation and debridement. SPECIMEN: Culture swabs aerobic and anaerobic x2. One set of culture swabs were taken from the glenohumeral joint fluid. Another was taken from the open wound that had previously been made in the emergency department. IMPLANTS: One 10 mm drain was placed. It was from a KAREN set but it was hooked up to a Hemovac. COMPLICATIONS: None. ESTIMATED BLOOD LOSS: Minimal. INDICATIONS FOR PROCEDURE: The patient is a 42-year-old woman with poorly controlled diabetes mellitus who presented to the emergency room yesterday with a complaint of left shoulder pain and some focal pain, swelling and erythema about the superficial superior left shoulder. The patient had a CT scan of the chest which showed an abscess about the subcutaneous tissue. The patient had not had any skin trauma, and she reported that she first developed pain with range of motion of the left shoulder prior to developing the soft tissue swelling. Therefore, I suspected an AC joint or another deep structure being infected. I ordered an MRI, which demonstrated infection at the AC joint, edema of the distal clavicle, and communication in the AC joint, likely with the superficial subcutaneous abscess. Glenohumeral joint was not clearly involved. There appeared to be some bursitis in the subacromial space. Prior to the MRI, I performed an I and D in the emergency room of the superficial abscess, removing much pus, irrigating a bit and placing some packing. The patient opted for surgery. Discussed risks and potential complications. DESCRIPTION OF PROCEDURE: In preoperative holding, the patient signed a written consent. The operative extremity was marked in preoperative holding. The patient was taken back to the operating room and placed supine on the operating room table. Sedated and intubated. The patient was transferred into the lateral decubitus position. Axillary roll. All bony prominences padded. Beanbag hardened. Longitudinal traction with 15 pounds with the appropriate amount of forward flexion and abduction. The shoulder was prepped with Betadine. We then performed a draping. I then used ChloraPrep about the planned arthroscopic skin incisions. Surgical time- out was performed. I next placed a spinal needle from posterior into the glenohumeral joint. I infused 30 cc of normal saline. I then established a posterior glenohumeral joint portal. I entered the arthroscope. There did not seem to be much contaminated fluid or any contaminated fluid in the glenohumeral joint. I took fluid from the glenohumeral joint and applied the culture swabs to obtain glenohumeral joint aerobic and anaerobic cultures. Articular cartilage looked pristine in the glenohumeral joint. There was some undersurface tearing of perhaps a millimeter of the undersurface of the supraspinatus. I established an anterior glenohumeral joint portal under direct visualization. I debrided the undersurface tear of the supraspinatus. I debrided a little bit of synovitis in the shoulder joint, glenohumeral joint. I ran 2 bags or 6 L of fluid for the glenohumeral joint. I next moved to the subacromial space. I placed arthroscope posterior and in- flow anterior. I made a lateral subacromial portal under direct visualization. There was significant subacromial bursitis. I debrided this bursitis with an arthroscopic shaver. There was not any clearly contaminated fluid visible at first. After debriding the subacromial bursa around the rotator cuff, there was no clear rotator cuff tendon tear. I debrided the undersurface the acromion with a VAPR. I next approached the AC joint from subacromial. I debrided some bursitic tissue with a VAPR and shaver. When I did this, there was clearly cloudy contaminated fluid consistent with infected material. I continued to debride with VAPR and shaver. I brought in an arthroscopic mitchel from anterior and debrided at least 8 mm at the distal end of the clavicle. I visualized all 4 corners of the clavicle. I debrided with a mitchel the acromial side of the AC joint as well. I ran a significant amount of fluid through the subacromial space, likely over 4 bags or over 12 L. The fluid was entirely clear. I next approached the shoulder from the outside, open. I noted the location in the AC joint related to the prior stab incision made in the emergency room. I made a slightly zig-zag open incision in the skin to incorporate the prior stab incision. I dissected down with scissor dissection through the subcutaneous tissue to the muscle fascia layer which included the clavicle. I then used a Hemovac to irrigate with at least 2 bags of fluid. I debrided with a rongeur a small amount of prominent bone on the superior aspect of the distal clavicle. I next placed a 10 mm drain through a stab hole into the subcutaneous space. I next returned to the subacromial space arthroscopically and debrided a little bit more with arthroscopic shaver and pushed a significant amount of fluid again through the AC joint from subacromial. I closed the longitudinal open incision with several buried simple stitches using PDS 2-0 suture. I closed the skin incision with a running stitch using nylon 3-0 suture. Arthroscopy skin incisions closed with [id number] in 12 stitches using nylon 3-0 suture. Dressing was 4x4's, ABD's, foam tape. Sling applied. DISPOSITION: The patient was awakened, extubated and brought to the PACU. She will be readmitted to the medicine service postoperatively. Her vancomycin and Zosyn will be continued. She will be on heparin b.i.d. for DVT prophylaxis. We will await the result of her cultures to refine the antibiotic coverage. The patient will have a consult by Dr. Guzman of the infectious disease service this week, but I anticipate multiple days of IV antibiotics and likely a PICC line. We will keep the drain in for at least 2 days and I anticipate likely a dressing change with pulling of drain at postoperative day #2. It should be noted that a drain stitch was placed using Prolene suture at the time of the closure. The patient should follow up with me in approximately 10 to 14 days for a wound check and removal of stitches. [id number]/[facility] #: [id number] DAVID
[2018-02-06] MEDS: Docusate CAP* 100 MG PO SCH (21:05)
[2018-02-06] MEDS: Magnesium Hydroxide LIQ* 30 ML UDC PO SCH (21:09)
[2018-02-06] MEDS ORDERED: Vancomycin(*) 1,250 MG in NS 0.9% 250 ML* 250 ML IVPB SCH (23:00)
--- NOTE | 2018-02-06 23:05 | PN ---
Progress Note - Progress Note Date of Service: 02/06/18 Note: Pt's cx were positive for MSSA. will d/c Vanc/Zosyn , start Cefazolin
[2018-02-06] MEDS: ceFAZolin* 2 GM* Q8H (Duplex) IVPB SCH (23:34)
[2018-02-07] MEDS: oxyCODONE TAB* 5 MG TAB PO PRN ×3 (01:35→15:56)
[2018-02-07] MEDS: Acetaminophen TAB* 325 MG PO SCH ×3 (04:24→21:19)
[2018-02-07] MEDS: Morphine VIAL* 4 MG/ML VIAL (1 ml vial) IV PRN (05:22)
[2018-02-07 06:04] LABS: ABS Basophils 0.1 10^3/ul (0-0.2); ABS Eosinophils 0.1 10^3/ul (0-0.6); ABS Lymphocytes 3.6 10^3/ul (1.0-4.8); ABS Monocytes 0.6 10^3/ul (0-0.8); ABS Neutrophils 14.5 10^3/ul (1.5-7.7); ABS Nucleated RBC 0 10^3/ul; Eosinophil % 0.4 %; Hematocrit 29 % (35-47); Hemoglobin 9.7 g/dl (12.0-16.0); Lymphocyte % 19.1 %; Mean Corpuscular HGB Conc 33 g/dl (31-36); Mean Corpuscular Hemoglobin 28 pg (27-31); Mean Corpuscular Volume 85 fL (80-97); Mean Platelet Volume 6.6 fL (7.4-10.4); Nucleated Red Blood Cells % 0.1; Platelet Count 319 10^3/ul (150-450); Red Blood Count 3.43 10^6/ul (4.00-5.40); Red Cell Distribution Width 14 % (10.5-15); White Blood Count 18.9 10^3/ul (3.5-10.8)
[2018-02-07 06:21] LABS: BUN/Creatinine Ratio 14.9 (8-20); Calcium 8.4 mg/dL (8.6-10.3); EGFR African American 117.4 (>60); Potassium 3.8 mmol/L (3.5-5.0)
[2018-02-07] MEDS: ceFAZolin* 2 GM* Q8H (Duplex) IVPB SCH ×3 (07:43→23:58)
--- NOTE | 2018-02-07 08:21 | PN ---
Subjective Date of Service: 02/07/18 Interval History: Moved to [place] from overnight] feeling tired today and 7/10 pain otherwise no complaints no SOB, CP OOB walking to bathroom last BM today Objective Active Medications: Acetaminophen (Tylenol Tab*) 975 mg PO Q8H [facility] Last Admin: 02/07/18 04:24 Dose: 975 mg Atorvastatin Calcium (Lipitor*) 80 mg PO DAILY [facility] Last Admin: 02/06/18 08:42 Dose: Not Given Bisacodyl (Dulcolax Supp*) 10 mg MA DAILY PRN PRN Reason: constipation Cyclobenzaprine HCl (Flexeril Tab*) 5 mg PO TID PRN PRN Reason: SPASMS Dextrose (D50w Syringe 50 Ml*) 12.5 gm IV PUSH .FOR FS < 60 - SS PRN PRN Reason: FS < 60 Diphenhydramine HCl (Benadryl Iv*) 25 mg IV Q6H PRN PRN Reason: itching Docusate Sodium (Colace Cap*) 100 mg PO BID [facility] Last Admin: 02/06/18 21:05 Dose: 100 mg Heparin Sodium (Porcine) (Heparin Vial(*)) 5,000 units SUBCUT Q12HR [facility] Cefazolin Sodium/Dextrose (Kefzol 2 Gm Premix In Ors(*)) 2 gm in 50 mls @ 100 mls/hr IVPB Q8H [facility] Last Admin: 02/07/18 07:43 Dose: 100 mls/hr Insulin Human Lispro (Humalog*) 0 units SUBCUT ACHS [facility]; Protocol Last Admin: 02/06/18 21:06 Dose: 3 unit Lactulose (Lactulose*) 30 ml PO Q6H PRN PRN Reason: constipation Magnesium Hydroxide (Milk Of Magnesia Liq*) 30 ml PO BID [facility] Last Admin: 02/06/18 21:09 Dose: Not Given Magnesium Hydroxide (Milk Of Magnesia Liq*) 30 ml PO Q6H PRN PRN Reason: constipation Metformin HCl (Glucophage*) 500 mg PO BID WITH MEALS [facility] Last Admin: 02/06/18 17:37 Dose: 500 mg Morphine Sulfate (Morphine Vial*) 4 mg IV Q4H PRN PRN Reason: PAIN - MILD Last Admin: 02/07/18 05:22 Dose: 4 mg Morphine Sulfate (Morphine Vial*) 2 mg IV Q2H PRN PRN Reason: PAIN Ondansetron HCl (Zofran Inj*) 4 mg IV Q6H PRN PRN Reason: NAUSEA Oxycodone HCl (Roxycodone Tab*) 10 mg PO Q4H PRN PRN Reason: PAIN - SEVERE Last Admin: 02/07/18 01:35 Dose: 10 mg Oxycodone/Acetaminophen (Percocet 5/325 Tab*) 1 tab PO Q4H PRN PRN Reason: PAIN Last Admin: 02/06/18 23:06 Dose: 1 tab Oxycodone/Acetaminophen (Percocet 5/325 Tab*) 2 tab PO Q4H PRN PRN Reason: PAIN Vital Signs - 8 hr 02/07/18 02/07/18 02/07/18 01:35 01:40 04:29 Temperature 98.4 F Pulse Rate 69 69 Respiratory 18 17 Rate Blood Pressure 105/53 119/65 (mmHg) O2 Sat by Pulse 98 Oximetry 02/07/18 02/07/18 02/07/18 05:19 05:22 07:16 Temperature 97.4 F Pulse Rate 71 Respiratory 18 18 Rate Blood Pressure 116/67 (mmHg) O2 Sat by Pulse 97 99 Oximetry Oxygen Devices in Use Now: None Appearance: NAD Eyes: No Scleral Icterus, PERRLA Ears/Nose/Mouth/Throat: NL Teeth, Lips, Gums, Clear Oropharnyx Neck: NL Appearance and Movements; NL JVP Respiratory: Symmetrical Chest Expansion and Respiratory Effort, Clear to Auscultation Cardiovascular: NL Sounds; No Murmurs; No JVD, RRR Abdominal: NL Sounds; No Tenderness; No Distention, No Hepatosplenomegaly Lymphatic: No Cervical Adenopathy Extremities: No Edema, - - left should wrapped, drain in place with serosangenous output, left hand nv intact Neurological: Alert and Oriented x 3 Result Diagrams: 02/07/18 05:21 02/07/18 05:21 Microbiology and Other Data: Microbiology 02/06/18 11:02 Skin and Soft Tissue MRSA/MSSA (PCR - Final Shoulder Left Mrsa Negative S.aureus Positive Gram Stain - Final 02/06/18 10:29 Gram Stain - Final Shoulder Left 02/05/18 12:49 Skin and Soft Tissue MRSA/MSSA (PCR - Final Shoulder Left Mrsa Negative S.aureus Positive Gram Stain - Final Wound Culture - Preliminary Staphylococcus Aureus 02/05/18 09:34 Aerobic Blood Culture - Preliminary Blood Venous No Growth Day 1 Anaerobic Blood Culture - Preliminary No Growth Day 1 02/05/18 09:27 Aerobic Blood Culture - Preliminary Blood Venous No Growth Day 1 Anaerobic Blood Culture - Preliminary No Growth Day 1 Assess/Plan/Problems-Billing Assessment: 42 yo F pw left shoulder pain found with SQ abscess which was continuous with AC joint sp OR 02/06 for left GH/AC joint irrigation/debridement, subacromial bursectomy, distal clavical resection - Patient Problems (1) Abscess Comment: Left shoulder SQ abscess drained in ED 02/06 OR 02/06 with procedure as described above. Remove drain per ortho recommendations Abx narrowed to cefazolin after SQ and deep space infections positive for MSSA ID consult placed for guidance re:length of abx incentive spirometry mobilize (2) Diabetes Comment: ISS high dose Increased metformin 500 BID to 1000mg BID 02/07 (3) DVT prophylaxis Comment: HSQ
[2018-02-07 08:51] LABS: C Reactive Protein 90.21 mg/L (<8.01)
[2018-02-07] MEDS ORDERED: metFORMIN* 1,000 MG TAB ONE (08:51)
[2018-02-07] MEDS: Atorvastatin* 80 MG TAB PO SCH (08:53)
[2018-02-07] MEDS: Magnesium Hydroxide LIQ* 30 ML UDC PO SCH ×2 (08:54→21:46)
[2018-02-07] MEDS: Heparin VIAL(*) 5000 UNITS/ML VIAL (FIVE THOUSAND) SUBCUT SCH ×2 (08:54→21:19)
[2018-02-07] MEDS: Docusate CAP* 100 MG PO SCH ×2 (08:54→21:19)
[2018-02-07] MEDS: Insulin LISPRO* 1 UNITS UNIT SUBCUT SCH ×4 (08:55→21:32)
[2018-02-07] MEDS: metFORMIN* 500 MG TAB PO SCH (09:00)
--- NOTE | 2018-02-07 12:10 | PN ---
Progress Note - Progress Note Date of Service: 02/07/18 SOAP: Subjective: []Patient seen at bedside. Alert, fairly comfortable, sling donned. Denies SOB , CP, palpitations, nausea or vomiting. Denies fever or chills. Objective: [] Vital Signs Temp 97.4 F 02/07/18 10:22 Pulse 75 02/07/18 10:22 Resp 16 02/07/18 10:22 BP 111/55 02/07/18 10:22 Pulse Ox 97 02/07/18 10:22 Intake & Output 02/06/18 02/07/18 02/07/18 18:59 06:59 18:59 Intake Total 1930 4154 555 Output Total 400 Balance 1930 3754 555 Intake: IV Fluids 850 984 20 1 GM ANCEF 50 LR 700 NS (0.9%) 984 20 ZOSYN 3.375 GM 100 IVPB 2810 55 ABX - CEFAZOLIN 55 NS (0.9%) 2810 Oral 1080 360 480 Output: Urine 400 Other: # Voids 0 Laboratory Results - last 24 hr 02/05/18 02/06/18 02/06/18 09:18 11:50 14:34 WBC 18.8 H RBC 3.97 L Hgb 11.2 L Hct 34 L MCV 86 MCH 28 MCHC 33 RDW 14 Plt Count 355 MPV 6.2 L Neut % (Auto) 84.7 Lymph % (Auto) 12.5 Perkins % (Auto) 2.0 Eos % (Auto) 0.3 Baso % (Auto) 0.5 Absolute Neuts (auto) 15.9 H Absolute Lymphs (auto) 2.3 Absolute Monos (auto) 0.4 Absolute Eos (auto) 0.1 Absolute Basos (auto) 0.1 Absolute Nucleated RBC 0 Immature Gran % 13 H Neutrophils % 73 Band Neutrophils % 13 H Lymphocytes % 12 Monocytes % 1 Basophils % 1 Nucleated RBC % 0.1 Normal RBC Morphology Normal Hem Pathologist Commnt Sodium Potassium Chloride Carbon Dioxide Anion Gap BUN Creatinine Est GFR ( Amer) Est GFR (Non-Af Amer) BUN/Creatinine Ratio Glucose POC Glucose (mg/dL) 201 H Calcium C-Reactive Protein 02/06/18 02/06/18 02/07/18 17:15 19:39 05:21 WBC 18.9 H RBC 3.43 L Hgb 9.7 L Hct 29 L MCV 85 MCH 28 MCHC 33 RDW 14 Plt Count 319 MPV 6.6 L Neut % (Auto) 76.7 Lymph % (Auto) 19.1 Perkins % (Auto) 3.2 Eos % (Auto) 0.4 Baso % (Auto) 0.6 Absolute Neuts (auto) 14.5 H Absolute Lymphs (auto) 3.6 Absolute Monos (auto) 0.6 Absolute Eos (auto) 0.1 Absolute Basos (auto) 0.1 Absolute Nucleated RBC 0 Immature Gran % Neutrophils % Band Neutrophils % Lymphocytes % Monocytes % Basophils % Nucleated RBC % 0.1 Normal RBC Morphology Hem Pathologist Commnt Sodium Potassium Chloride Carbon Dioxide Anion Gap BUN Creatinine Est GFR ( Amer) Est GFR (Non-Af Amer) BUN/Creatinine Ratio Glucose POC Glucose (mg/dL) 281 H 161 H Calcium C-Reactive Protein 02/07/18 02/07/18 05:21 07:46 WBC RBC Hgb Hct MCV MCH MCHC RDW Plt Count MPV Neut % (Auto) Lymph % (Auto) Perkins % (Auto) Eos % (Auto) Baso % (Auto) Absolute Neuts (auto) Absolute Lymphs (auto) Absolute Monos (auto) Absolute Eos (auto) Absolute Basos (auto) Absolute Nucleated RBC Immature Gran % Neutrophils % Band Neutrophils % Lymphocytes % Monocytes % Basophils % Nucleated RBC % Normal RBC Morphology Hem Pathologist Commnt Sodium 135 Potassium 3.8 Chloride 103 Carbon Dioxide 25 Anion Gap 7 BUN 10 Creatinine 0.67 Est GFR ( Amer) 117.4 Est GFR (Non-Af Amer) 97.0 BUN/Creatinine Ratio 14.9 Glucose 185 H POC Glucose (mg/dL) 175 H Calcium 8.4 L C-Reactive Protein 90.21 H Microbiology 02/06/18 10:29 Anaerobic Culture - Preliminary Wound - Shoulder Left No Growth Day 1 02/06/18 10:29 Gram Stain - Final Shoulder Left Wound Culture - Preliminary No Growth Day 1 02/05/18 09:34 Aerobic Blood Culture - Preliminary Blood Venous Staphylococcus Aureus Anaerobic Blood Culture - Preliminary No Growth Day 2 Blood MRSA/MSSA (PCR) - Final Mrsa Negative S.aureus Positive 02/05/18 12:49 Skin and Soft Tissue MRSA/MSSA (PCR - Final Shoulder Left Mrsa Negative S.aureus Positive Gram Stain - Final Wound Culture - Final Staphylococcus Aureus 02/05/18 09:27 Aerobic Blood Culture - Preliminary Blood Venous No Growth Day 2 Anaerobic Blood Culture - Preliminary No Growth Day 2 02/06/18 11:02 Skin and Soft Tissue MRSA/MSSA (PCR - Final Shoulder Left Mrsa Negative S.aureus Positive Gram Stain - Final Left shoulder dressings intact and dry Hemovac drain working well, container 1/2 full with serosanguenous fluid Moving all fingers well, sensation and circulation intact distally Assessment: []left shoulder A/C joint infection with superficial skin abscess, s/p arthroscopic I&D, subacromial decompression, excision distal clavicle, open I&D superficial skin abscess POD #1 Plan: []Micro MSSA- on Cefazolin, Dr. Guzman for definitive antibiotic plan PICC line Dressing change and removal of hemovac 02/08/18 ( drain sutured in)
[2018-02-07] MEDS ORDERED: Vancomycin Trough Check NOTE FOLLOW UP ONE (14:30)
[2018-02-07] MEDS: metFORMIN* 1,000 MG TAB PO SCH (17:36)
--- NOTE | 2018-02-07 19:09 | CONS ---
CONSULTATION REPORT: DATE OF CONSULT: 02/07/18 REQUESTING PHYSICIAN: Dr. Crump. CONSULTING SERVICE: Infectious Disease. REASON FOR CONSULT: Staphylococcal septic acromioclavicular joint infection. IMPRESSION: 1. Methicillin-susceptible Staphylococcus aureus left septic acromioclavicular joint and cutaneous abscess, status post incision and debridement and no apparent glenohumeral joint involvement. 2. Type 2 diabetes with hypoglycemia. RECOMMENDATIONS: Ancef 2 g IV every 8 hours, plan on 2 more weeks of IV treatment and then Keflex for another 2 to 4 weeks subsequently. She did have resection of the distal clavicle. For antibiotics, she will have weekly CBC, CMP, CRP. Follow up with me in a week or two. We discussed side effects including fever, rash and diarrhea, she will call if any. HISTORY OF PRESENT ILLNESS: This is a 42-year-old woman with diabetes, admitted with left shoulder pain that had been brewing for a few days. She noticed swelling, redness particularly in shoulder and neck, got worse and worse , was put on Augmentin by her primary doctor. Because of worsening symptoms, she came to the emergency room on 02/05/18. She had an MRI that showed small glenohumeral joint effusion, superficial and deep soft tissue loculated abscess in septic AC joint and subacromial subdeltoid bursa. Dr. Angel took her to the operating room on 02/06/18 for incision, debridement and resection of distal clavicle which she tolerated well. She has had no fevers, chills or sweats since then. Her C- reactive protein was initially 250, it is down to 90. She has not had an infection in the past requiring hospitalization. She is not sure of her blood sugar control, but notes it has been getting worse over the last few months. PAST MEDICAL HISTORY: 1. Type 2 diabetes. 2. Obesity. 3. Hyperlipidemia. 4. Status post tubal ligation. ALLERGIES: IMITREX. MEDICATIONS: 1. Tylenol. 2. Lipitor. 3. Bisacodyl. 4. Cefazolin 2 g IV every 8 hours. 5. Cyclobenzaprine. 6. Docusate. 7. Heparin subcutaneous injection. 8. Insulin lispro. 9. Lactulose. 10. Metformin. 11. Oxycodone. SOCIAL HISTORY: She lives in [place] with her family. No sick contacts. No travel. FAMILY HISTORY: No recurrent infections. Parents both alive and healthy. REVIEW OF SYSTEMS: All negative except 14-point review except as noted above in the history of present illness. PHYSICAL EXAM: Vital Signs: Temperature 36, heart rate 70, respiratory rate 16 , blood pressure 111/55, oxygen saturation 97% on room air. In general, she is awake, not in distress. Neurologic: She is oriented x3. Follows all commands. HEENT: There is no conjunctival hemorrhage. Oropharynx without lesions. Neck: Neck is supple without mass. Heart is regular rate and rhythm without murmurs, rubs or gallops. Lungs are clear to auscultation bilaterally. Abdomen: Soft, nontender, nondistended. Bowel sounds present. Skin: There are no rashes or splinter hemorrhage. Musculoskeletal: There is no spine tenderness to palpation. Left shoulder is wrapped with ice applied. DIAGNOSTIC STUDIES/LAB DATA: White blood cell count 18, hemoglobin 9, platelets 319, creatinine 0.6, CRP 90. Please see impression and recommendations outlined above. Thank you for asking me to see Ms. Villarreal in consultation. [id number]/[facility] #: [id number] DAVID
[2018-02-08] MEDS: oxyCODONE TAB* 5 MG TAB PO PRN ×2 (05:33→20:20)
[2018-02-08] MEDS: Acetaminophen TAB* 325 MG PO SCH ×3 (05:33→20:18)
[2018-02-08] MEDS: ceFAZolin* 2 GM* Q8H (Duplex) IVPB SCH ×3 (08:35→23:00)
[2018-02-08] MEDS: Heparin VIAL(*) 5000 UNITS/ML VIAL (FIVE THOUSAND) SUBCUT SCH ×2 (08:44→21:27)
[2018-02-08] MEDS: Atorvastatin* 80 MG TAB PO SCH (08:45)
[2018-02-08] MEDS: Docusate CAP* 100 MG PO SCH ×2 (08:45→21:17)
[2018-02-08] MEDS: metFORMIN* 1,000 MG TAB PO SCH ×2 (08:45→18:07)
[2018-02-08] MEDS: Magnesium Hydroxide LIQ* 30 ML UDC PO SCH ×2 (08:46→21:16)
--- NOTE | 2018-02-08 09:04 | PN ---
Subjective Date of Service: 02/08/18 Interval History: Pt is feeling much better than when I admitted her. She states her pain is generally controlled with oxycodone. She has been using the L arm as much as she can. She states the ortho PA has been in for a visit and is not sure that the drain can be removed. She denies any diarrhea. Objective Active Medications: Acetaminophen (Tylenol Tab*) 975 mg PO Q8H [facility] Last Admin: 02/08/18 05:33 Dose: 975 mg Atorvastatin Calcium (Lipitor*) 80 mg PO DAILY [facility] Last Admin: 02/08/18 08:45 Dose: 80 mg Bisacodyl (Dulcolax Supp*) 10 mg OR DAILY PRN PRN Reason: constipation Cyclobenzaprine HCl (Flexeril Tab*) 5 mg PO TID PRN PRN Reason: SPASMS Last Admin: 02/07/18 22:05 Dose: 5 mg Dextrose (D50w Syringe 50 Ml*) 12.5 gm IV PUSH .FOR FS < 60 - SS PRN PRN Reason: FS < 60 Diphenhydramine HCl (Benadryl Iv*) 25 mg IV Q6H PRN PRN Reason: itching Docusate Sodium (Colace Cap*) 100 mg PO BID [facility] Last Admin: 02/08/18 08:45 Dose: 100 mg Heparin Sodium (Porcine) (Heparin Vial(*)) 5,000 units SUBCUT Q12HR [facility] Last Admin: 02/08/18 08:44 Dose: 5,000 units Cefazolin Sodium/Dextrose (Kefzol 2 Gm Premix In Ors(*)) 2 gm in 50 mls @ 100 mls/hr IVPB Q8H [facility] Last Admin: 02/08/18 08:35 Dose: 100 mls/hr Insulin Human Lispro (Humalog*) 0 units SUBCUT ACHS [facility]; Protocol Last Admin: 02/07/18 21:32 Dose: 9 unit Lactulose (Lactulose*) 30 ml PO Q6H PRN PRN Reason: constipation Magnesium Hydroxide (Milk Of Magnesia Liq*) 30 ml PO BID [facility] Last Admin: 02/08/18 08:46 Dose: Not Given Magnesium Hydroxide (Milk Of Magnesia Liq*) 30 ml PO Q6H PRN PRN Reason: constipation Metformin HCl (Glucophage*) 1,000 mg PO 0800,1700 [facility] Last Admin: 02/08/18 08:45 Dose: 1,000 mg Morphine Sulfate (Morphine Vial*) 4 mg IV Q4H PRN PRN Reason: PAIN - MILD Last Admin: 02/07/18 05:22 Dose: 4 mg Morphine Sulfate (Morphine Vial*) 2 mg IV Q2H PRN PRN Reason: PAIN Ondansetron HCl (Zofran Inj*) 4 mg IV Q6H PRN PRN Reason: NAUSEA Oxycodone HCl (Roxycodone Tab*) 10 mg PO Q4H PRN PRN Reason: PAIN - SEVERE Last Admin: 02/08/18 05:33 Dose: 10 mg Oxycodone/Acetaminophen (Percocet 5/325 Tab*) 1 tab PO Q4H PRN PRN Reason: PAIN Last Admin: 02/06/18 23:06 Dose: 1 tab Oxycodone/Acetaminophen (Percocet 5/325 Tab*) 2 tab PO Q4H PRN PRN Reason: PAIN Vital Signs - 8 hr 02/08/18 02/08/18 02/08/18 03:16 05:33 07:22 Temperature 98.2 F 97.9 F Pulse Rate 65 65 Respiratory 18 18 18 Rate Blood Pressure 124/76 127/77 (mmHg) O2 Sat by Pulse 96 97 Oximetry Oxygen Devices in Use Now: None Appearance: Middle aged female sitting up in a chair, eating breakfast, NAD Eyes: No Scleral Icterus Ears/Nose/Mouth/Throat: Mucous Membranes Moist Respiratory: Symmetrical Chest Expansion and Respiratory Effort, Clear to Auscultation Cardiovascular: NL Sounds; No Murmurs; No JVD, RRR, No Edema Abdominal: NL Sounds; No Tenderness; No Distention Extremities: No Clubbing, Cyanosis, - - L shoulder wrapped in pressure dressing , hemovac drain with sanguinous drainage Skin: No Rash or Ulcers Neurological: Alert and Oriented x 3 Result Diagrams: 02/07/18 05:21 02/07/18 05:21 Microbiology and Other Data: Microbiology 02/06/18 11:02 Skin and Soft Tissue MRSA/MSSA (PCR - Final Shoulder Left Mrsa Negative S.aureus Positive Gram Stain - Final 02/06/18 10:29 Gram Stain - Final Shoulder Left 02/05/18 12:49 Skin and Soft Tissue MRSA/MSSA (PCR - Final Shoulder Left Mrsa Negative S.aureus Positive Gram Stain - Final Wound Culture - Preliminary Staphylococcus Aureus 02/05/18 09:34 Aerobic Blood Culture - Preliminary Blood Venous No Growth Day 1 Anaerobic Blood Culture - Preliminary No Growth Day 1 02/05/18 09:27 Aerobic Blood Culture - Preliminary Blood Venous No Growth Day 1 Anaerobic Blood Culture - Preliminary No Growth Day 1 Assess/Plan/Problems-Billing Ms Villarreal is a 42 yo F who has a h/o type II DM (recently restarted metformin treatment), who presented to the ER with c/o left shoulder pain and was found to have a subcutaneous abscess which was contiguous with the AC joint s/p OR for left GH/AC joint irrigation/debridement, subacromial bursectomy and distal clavical resection. - Patient Problems (1) Septic arthritis of left acromioclavicular joint Current Visit: Yes Status: Acute Code(s): M00.9 - PYOGENIC ARTHRITIS, UNSPECIFIED SNOMED Code(s): 925692735 Comment: The patient was ultimately found to have a subcutaneous abscess and septic L acromioclavicular joint. She went to the OR on 02/06 where she underwent arthroscopic I&D glenohumeral joint and AC joint, subacromial bursectomy, distal clavical resection, I&D superior shoulder area subcutaneous tissue and arthroscopic debridement undersurface low grade supraspinatus tear. Cultures have grown MSSA. ID consult yesterday recommended cefazolin 2g IV q8hr x2 weeks then 2-4 weeks of keflex. Will need to get IV Abx set up. Order PICC placement. (2) Type II diabetes mellitus Current Visit: Yes Status: Acute Comment: Sugars are moderately elevated. Metformin increased to 1000mg BID yesterday. Continue this dose and lispro sliding scale. (3) DVT prophylaxis Current Visit: Yes Status: Acute Code(s): ION9306 - SNOMED Code(s): 401918419 Comment: SQ heparin (4) Full code status Current Visit: Yes Status: Acute Code(s): Z78.9 - OTHER SPECIFIED HEALTH STATUS SNOMED Code(s): 626081743
[2018-02-08] MEDS: Insulin LISPRO* 1 UNITS UNIT SUBCUT SCH ×4 (09:57→21:22)
--- NOTE | 2018-02-08 13:19 | PN ---
Progress Note - Progress Note Date of Service: 02/08/18 SOAP: Subjective: Pain reduced. Able to move LUE more. Objective: LUE: - incisions c/d/i - decreased swelling and TTP left shoulder area compared with preop - no significant skin erythema - PROM was increased to 100 degrees FF and abd, 30 degrees ER and 70 degrees IR with arm at side - NVID Selected Entries 02/08/18 11:10 Temperature 97.9 F Pulse Rate 66 Respiratory 18 Rate Blood Pressure 141/67 (mmHg) O2 Sat by Pulse 99 Oximetry Microbiology 02/06/18 11:02 Shoulder Left Skin and Soft Tissue MRSA/MSSA (PCR - Final 02/06/18 11:02 Shoulder Left Gram Stain - Final Mrsa Negative S.aureus Positive 02/06/18 11:02 Shoulder Left Wound Culture - Preliminary Staphylococcus Aureus Assessment: POD 2 I&D L shoulder arthroscopic and open, distal clavicle resection MSSA Plan: - Continue IV Ancef - CBC, ESR, CRP in the morning to gauge improvement - exam tomorrow to gauge improvement - patient and I have discussed several times that sometimes a 2nd I&D is required, especially when infection has been present for 7 days preop; it is less likely she will need a 2nd I&D however - I anticipate patient will be in house until , in 2 days, until it is more clear that she will not require a 2nd I&D - plan per Megan is 2 weeks IV Ancef and then 2-4 weeks oral abx - I encouraged some gentle ROM shoulder, but we will hold off on PT for now
[2018-02-09] MEDS: Acetaminophen TAB* 325 MG PO SCH ×3 (03:58→20:27)
[2018-02-09 05:37] LABS: Hematocrit 30 % (35-47); Mean Corpuscular HGB Conc 33 g/dl (31-36); Mean Corpuscular Hemoglobin 28 pg (27-31); Mean Corpuscular Volume 85 fL (80-97); Mean Platelet Volume 6.2 fL (7.4-10.4); Platelet Count 331 10^3/ul (150-450); Red Blood Count 3.55 10^6/ul (4.00-5.40); Red Cell Distribution Width 14 % (10.5-15)
[2018-02-09 06:00] LABS: BUN/Creatinine Ratio 16.1 (8-20); Calcium 8.9 mg/dL (8.6-10.3); EGFR African American 128.4 (>60); EGFR Non-African American 106.1 (>60); Potassium 3.8 mmol/L (3.5-5.0)
[2018-02-09 06:38] LABS: ABS Basophils 0.1 10^3/ul (0-0.2); ABS Eosinophils 0.2 10^3/ul (0-0.6); ABS Lymphocytes 4.7 10^3/ul (1.0-4.8); ABS Monocytes 0.9 10^3/ul (0-0.8); ABS Neutrophils 12.1 10^3/ul (1.5-7.7); ABS Nucleated RBC 0 10^3/ul; Eosinophil % 1.2 %; Lymphocyte % 26.1 %; Nucleated Red Blood Cells % 0.1
[2018-02-09 07:37] LABS: C Reactive Protein 28.37 mg/L (<8.01)
[2018-02-09] MEDS: Insulin LISPRO* 1 UNITS UNIT SUBCUT SCH ×4 (07:50→20:46)
[2018-02-09] MEDS: Magnesium Hydroxide LIQ* 30 ML UDC PO SCH ×2 (07:54→20:42)
[2018-02-09] MEDS: ceFAZolin* 2 GM* Q8H (Duplex) IVPB SCH ×3 (07:58→23:11)
[2018-02-09] MEDS: Atorvastatin* 80 MG TAB PO SCH (08:03)
[2018-02-09] MEDS: Docusate CAP* 100 MG PO SCH ×2 (08:04→20:27)
[2018-02-09] MEDS: Heparin VIAL(*) 5000 UNITS/ML VIAL (FIVE THOUSAND) SUBCUT SCH ×2 (08:04→20:44)
[2018-02-09] MEDS: metFORMIN* 1,000 MG TAB PO SCH ×2 (08:04→17:22)
--- NOTE | 2018-02-09 09:21 | PN ---
Progress Note - Progress Note Date of Service: 02/09/18 SOAP: Subjective: []Patient was seen at bedside. She is having 7/10 left shoulder pain currently stating it is more painful than yesterday after practicing gentle ROM. Does not feel that she has been feverish and denies chills. Denies CP, SOB, dizziness, nausea. Objective: []General: Well appearing, NAD, laying comfortably in bed LUE: Dressing changed. Incisions are clean, dry and intact without surrounding erythema and no discharge. Shoulder is nontender to gentle palpation. She is able to engage in minimal active ROM of the shoulder due to pain. Passive ROM includes FF and abduction to 80 degrees endpoint limited by pain. Flexion and extension at elbow, wrist and mcps intact. Sensation is intact throughout LUE to light touch. Extremity is warm and supple, radial pulse is 2+, capillary refill is less than two seconds distally. Assessment: [] POD 3 I&D L shoulder arthroscopic and open, distal clavicle resection MSSA on culture Plan: - Continue IV Ancef - CRP continues to trend down 246 to 90 and today 28. WBC also trending down - Dr Angel has discussed with patient that sometimes a 2nd I&D is required, especially when infection has been present for 7 days preop; it is less likely she will need a 2nd I&D however. It is anticipated that the patient will be in house until , until it is more clear that she will not require a 2nd I& D. Increased pain today though no erythema or edema, still with good ROM, remains afebrile, WBC and CRP trending down, neutrophil % trending towards normal, will continue to monitor tomorrow - Plan per Megan is 2 weeks IV Ancef and then 2-4 weeks oral abx - Gentle ROM shoulder, but we will hold off on formal PT for now Vital Signs Temp 97.0 F 02/09/18 07:08 Pulse 55 02/09/18 07:08 Resp 16 02/09/18 08:00 BP 116/66 02/09/18 07:08 Pulse Ox 97 02/09/18 08:00 Intake & Output 02/08/18 02/09/18 02/09/18 18:59 06:59 18:59 Intake Total 1238 900 75 Output Total 80 600 Balance 1158 300 75 Intake: IV Fluids 88 75 ABX - CEFAZOLIN 55 55 NS (0.9%) 33 20 Oral 1150 900 Output: Wound Vac 80 Urine 600 Other: Estimated Void Large Large # Bowel Movements 1 Estimated Stool Amount Medium # Voids 1 1 Laboratory Last Values WBC 18.0 10^3/ul (3.5-10.8) H 02/09/18 05:05 RBC 3.55 10^6/ul (4.00-5.40) L 02/09/18 05:05 Hgb 10.0 g/dl (12.0-16.0) L 02/09/18 05:05 Hct 30 % (35-47) L 02/09/18 05:05 MCV 85 fL (80-97) 02/09/18 05:05 MCH 28 pg (27-31) 02/09/18 05:05 MCHC 33 g/dl (31-36) 02/09/18 05:05 RDW 14 % (10.5-15) 02/09/18 05:05 Plt Count 331 10^3/ul (150-450) 02/09/18 05:05 MPV 6.2 fL (7.4-10.4) L 02/09/18 05:05 Neut % (Auto) 67.1 % 02/09/18 05:05 Lymph % (Auto) 26.1 % 02/09/18 05:05 [place] % (Auto) 5.2 % 02/09/18 05:05 Eos % (Auto) 1.2 % 02/09/18 05:05 Baso % (Auto) 0.4 % 02/09/18 05:05 Absolute Neuts (auto) 12.1 10^3/ul (1.5-7.7) H 02/09/18 05:05 Absolute Lymphs (auto) 4.7 10^3/ul (1.0-4.8) 02/09/18 05:05 Absolute Monos (auto) 0.9 10^3/ul (0-0.8) H 02/09/18 05:05 Absolute Eos (auto) 0.2 10^3/ul (0-0.6) 02/09/18 05:05 Absolute Basos (auto) 0.1 10^3/ul (0-0.2) 02/09/18 05:05 Absolute Nucleated RBC 0 10^3/ul 02/09/18 05:05 Immature Gran % 13 % (0-9) H 02/06/18 14:34 Neutrophils % 73 % 02/06/18 14:34 Band Neutrophils % 13 % (0-8) H 02/06/18 14:34 Lymphocytes % 12 % 02/06/18 14:34 Monocytes % 1 % 02/06/18 14:34 Eosinophils % 1 % 02/05/18 09:18 Basophils % 1 % 02/06/18 14:34 Metamyelocytes % 1 % (0-2) 02/05/18 09:18 Myelocytes % 2 % (0-1) H 02/05/18 09:18 Nucleated RBC % 0.1 02/09/18 05:05 Abs Neuts (Manual) 13.5 10^3/ul (1.5-7.7) H 02/05/18 09:18 Abs Lymphs (Manual) 2.8 10^3/ul (1.0-4.8) 02/05/18 09:18 Abs Monocytes (Manual) 0.9 10^3/ul (0-0.8) H 02/05/18 09:18 Absolute Eos (Manual) 0.2 10^3/ul (0-0.6) 02/05/18 09:18 Normal RBC Morphology Normal (Normal) 02/06/18 14:34 ESR 103 mm/Hr (0-14) H 02/05/18 09:18 Hem Pathologist Commnt 02/05/18 09:18 Sodium 137 mmol/L (135-145) 02/09/18 05:05 Potassium 3.8 mmol/L (3.5-5.0) 02/09/18 05:05 Chloride 104 mmol/L (101-111) 02/09/18 05:05 Carbon Dioxide 27 mmol/L (22-32) 02/09/18 05:05 Anion Gap 6 mmol/L (2-11) 02/09/18 05:05 BUN 10 mg/dL (6-24) 02/09/18 05:05 Creatinine 0.62 mg/dL (0.51-0.95) 02/09/18 05:05 Est GFR ( Amer) 128.4 (>60) 02/09/18 05:05 Est GFR (Non-Af Amer) 106.1 (>60) 02/09/18 05:05 BUN/Creatinine Ratio 16.1 (8-20) 02/09/18 05:05 Glucose 118 mg/dL (70-100) H 02/09/18 05:05 POC Glucose (mg/dL) 115 mg/dL (70-100) H 02/09/18 07:50 Calcium 8.9 mg/dL (8.6-10.3) 02/09/18 05:05 Total Bilirubin 0.40 mg/dL (0.2-1.0) 02/05/18 09:27 AST 12 U/L (13-39) L 02/05/18 09:27 ALT 17 U/L (7-52) 02/05/18 09:27 Alkaline Phosphatase 113 U/L (34-104) H 02/05/18 09:27 C-Reactive Protein 28.37 mg/L (<8.01) H 02/09/18 05:05 Total Protein 7.4 g/dL (6.4-8.9) 02/05/18 09:27 Albumin 3.6 g/dL (3.2-5.2) 02/05/18 09:27 Globulin 3.8 g/dL (2-4) 02/05/18 09:27 Albumin/Globulin Ratio 0.9 (1-3) L 02/05/18 09:27
[2018-02-09] MEDS: oxyCODONE TAB* 5 MG TAB PO PRN ×2 (11:32→20:27)
--- NOTE | 2018-02-09 13:57 | PN ---
Subjective Date of Service: 02/09/18 Interval History: Pt is feeling well. She does have increased pain in the L shoulder today. She has also had shooting pain down the L arm. She had one episode of loose stool today. Objective Active Medications: Acetaminophen (Tylenol Tab*) 975 mg PO Q8H [facility] Last Admin: 02/09/18 11:31 Dose: 975 mg Atorvastatin Calcium (Lipitor*) 80 mg PO DAILY [facility] Last Admin: 02/09/18 08:03 Dose: 80 mg Bisacodyl (Dulcolax Supp*) 10 mg [place] DAILY PRN PRN Reason: constipation Cyclobenzaprine HCl (Flexeril Tab*) 5 mg PO TID PRN PRN Reason: SPASMS Last Admin: 02/07/18 22:05 Dose: 5 mg Dextrose (D50w Syringe 50 Ml*) 12.5 gm IV PUSH .FOR FS < 60 - SS PRN PRN Reason: FS < 60 Diphenhydramine HCl (Benadryl Iv*) 25 mg IV Q6H PRN PRN Reason: itching Docusate Sodium (Colace Cap*) 100 mg PO BID [facility] Last Admin: 02/09/18 08:04 Dose: 100 mg Heparin Sodium (Porcine) (Heparin Vial(*)) 5,000 units SUBCUT Q12HR [facility] Last Admin: 02/09/18 08:04 Dose: 5,000 units Heparin Sodium (Porcine) (Heparin Flush Picc/Ml/Cvc(*)) 1 - 3 ml FLUSH 0600, 1800 [facility]; Protocol Cefazolin Sodium/Dextrose (Kefzol 2 Gm Premix In Ors(*)) 2 gm in 50 mls @ 100 mls/hr IVPB Q8H [facility] Last Admin: 02/09/18 07:58 Dose: 100 mls/hr Insulin Human Lispro (Humalog*) 0 units SUBCUT ACHS [facility]; Protocol Last Admin: 02/09/18 12:13 Dose: Not Given Lactulose (Lactulose*) 30 ml PO Q6H PRN PRN Reason: constipation Magnesium Hydroxide (Milk Of Magnesia Liq*) 30 ml PO BID [facility] Last Admin: 02/09/18 07:54 Dose: Not Given Magnesium Hydroxide (Milk Of Magnesia Liq*) 30 ml PO Q6H PRN PRN Reason: constipation Metformin HCl (Glucophage*) 1,000 mg PO 0800,1700 [facility] Last Admin: 02/09/18 08:04 Dose: 1,000 mg Morphine Sulfate (Morphine Vial*) 4 mg IV Q4H PRN PRN Reason: PAIN - MILD Last Admin: 02/07/18 05:22 Dose: 4 mg Ondansetron HCl (Zofran Inj*) 4 mg IV Q6H PRN PRN Reason: NAUSEA Last Admin: 02/08/18 21:27 Dose: 4 mg Oxycodone HCl (Roxycodone Tab*) 5 mg PO Q4H PRN PRN Reason: Pain 1-5 Last Admin: 02/09/18 11:32 Dose: 5 mg Oxycodone HCl (Roxycodone Tab*) 10 mg PO Q4H PRN PRN Reason: Pain 6-10 Last Admin: 02/08/18 20:20 Dose: 10 mg Vital Signs - 8 hr 02/09/18 02/09/18 02/09/18 07:08 08:00 11:24 Temperature 97.0 F 97.7 F Pulse Rate 55 58 Respiratory 16 16 16 Rate Blood Pressure 116/66 143/82 (mmHg) O2 Sat by Pulse 97 97 97 Oximetry 02/09/18 02/09/18 11:32 13:36 Temperature Pulse Rate Respiratory 18 18 Rate Blood Pressure (mmHg) O2 Sat by Pulse Oximetry Oxygen Devices in Use Now: None Appearance: Middle aged female sittign up in bed, NAD Eyes: No Scleral Icterus Ears/Nose/Mouth/Throat: Mucous Membranes Moist Respiratory: Symmetrical Chest Expansion and Respiratory Effort, Clear to Auscultation Cardiovascular: NL Sounds; No Murmurs; No JVD, RRR, No Edema Abdominal: NL Sounds; No Tenderness; No Distention Extremities: No Clubbing, Cyanosis, - - L shoulder dressed, cryounit on shoulder Skin: No Nodules or Sclerosis Neurological: Alert and Oriented x 3 Result Diagrams: 02/09/18 05:05 02/09/18 05:05 Microbiology and Other Data: Microbiology 02/06/18 11:02 Skin and Soft Tissue MRSA/MSSA (PCR - Final Shoulder Left Mrsa Negative S.aureus Positive Gram Stain - Final 02/06/18 10:29 Gram Stain - Final Shoulder Left 02/05/18 12:49 Skin and Soft Tissue MRSA/MSSA (PCR - Final Shoulder Left Mrsa Negative S.aureus Positive Gram Stain - Final Wound Culture - Preliminary Staphylococcus Aureus 02/05/18 09:34 Aerobic Blood Culture - Preliminary Blood Venous No Growth Day 1 Anaerobic Blood Culture - Preliminary No Growth Day 1 02/05/18 09:27 Aerobic Blood Culture - Preliminary Blood Venous No Growth Day 1 Anaerobic Blood Culture - Preliminary No Growth Day 1 Assess/Plan/Problems-Billing Ms Villarreal is a 42 yo F who has a h/o type II DM (recently restarted metformin treatment), who presented to the ER with c/o left shoulder pain and was found to have a subcutaneous abscess which was contiguous with the AC joint s/p OR for left GH/AC joint irrigation/debridement, subacromial bursectomy and distal clavical resection. - Patient Problems (1) Septic arthritis of left acromioclavicular joint Current Visit: Yes Status: Acute Code(s): M00.9 - PYOGENIC ARTHRITIS, UNSPECIFIED SNOMED Code(s): 515636067 Comment: The patient was ultimately found to have a subcutaneous abscess and septic L acromioclavicular joint. She went to the OR on 02/06. Plan to watch another day for need of 2nd washout. Continue cefazolin 2g IV q8hr for now. PICC is placed. (2) Type II diabetes mellitus Current Visit: Yes Status: Acute Comment: Sugars are under good control on metformin 1000mg BID. (3) DVT prophylaxis Current Visit: Yes Status: Acute Code(s): UXH3903 - SNOMED Code(s): 776312613 Comment: SQ heparin (4) Full code status Current Visit: Yes Status: Acute Code(s): Z78.9 - OTHER SPECIFIED HEALTH STATUS SNOMED Code(s): 537696336
[2018-02-10] MEDS: oxyCODONE TAB* 5 MG TAB PO PRN ×2 (05:17→12:26)
[2018-02-10] MEDS: Acetaminophen TAB* 325 MG PO SCH ×2 (05:18→12:25)
[2018-02-10 05:43] LABS: Hematocrit 33 % (35-47); Hemoglobin 10.7 g/dl (12.0-16.0); Mean Corpuscular HGB Conc 33 g/dl (31-36); Mean Corpuscular Hemoglobin 28 pg (27-31); Mean Corpuscular Volume 85 fL (80-97); Mean Platelet Volume 6.1 fL (7.4-10.4); Platelet Count 376 10^3/ul (150-450); Red Blood Count 3.89 10^6/ul (4.00-5.40); Red Cell Distribution Width 14 % (10.5-15); White Blood Count 18.9 10^3/ul (3.5-10.8)
[2018-02-10 06:06] LABS: Immature Granulocytes 8 % (0-9); Lymphocytes % 21 %; Metamyelocytes % 1 % (0-2); Monocytes % 3 %; Myelocytes % 4 % (0-1); Neutrophil % 68 %
[2018-02-10 06:07] LABS: ABS Neutrophils 14.3 10^3/ul (1.5-7.7)
[2018-02-10 06:25] LABS: Erythrocyte Sed Rate 99 mm/Hr (0-14)
[2018-02-10] MEDS: Insulin LISPRO* 1 UNITS UNIT SUBCUT SCH ×2 (07:35→12:28)
[2018-02-10] MEDS: ceFAZolin* 2 GM* Q8H (Duplex) IVPB SCH (07:38)
[2018-02-10] MEDS: Docusate CAP* 100 MG PO SCH (07:46)
[2018-02-10] MEDS: Magnesium Hydroxide LIQ* 30 ML UDC PO SCH (07:47)
[2018-02-10] MEDS: metFORMIN* 1,000 MG TAB PO SCH (08:10)
[2018-02-10] MEDS: Atorvastatin* 80 MG TAB PO SCH (08:10)
[2018-02-10] MEDS: Heparin VIAL(*) 5000 UNITS/ML VIAL (FIVE THOUSAND) SUBCUT SCH (08:11)
--- NOTE | 2018-02-10 11:02 | PN ---
Progress Note - Progress Note Date of Service: 02/10/18 SOAP: Subjective: []Patient was seen and examined at bedside. She feels well without feeling of fever or chills. Left shoulder pain is improved from yesterday and range of motion seems to be improving as well. She has had infusion teaching and home nursing will be at her home this afternoon to set up infusions. Objective: [] General: Well appearing, NAD, laying comfortably in bed LUE: Dressing changed. Incisions are clean, dry and intact without surrounding erythema and no discharge. Shoulder is nontender to gentle palpation. Active ROM of the shoulder is improved today with 60 degrees of FF and ABD. Passive FF and abduction also improved to 110 degrees endpoint limited by pain. Flexion and extension at elbow, wrist and mcps intact. Sensation is intact throughout LUE to light touch. Extremity is warm and supple, radial pulse is 2+, capillary refill is less than two seconds distally. Assessment: [] POD 4 I&D L shoulder arthroscopic and open, distal clavicle resection MSSA on culture Plan: - Continue IV Ancef, home infusions to begin today - CRP continues to trend down again from 28 to 22. WBC remains elevated. Discussed with Dr Farnsworth and Dr Angel. Jean for DC, will order a UA before DC. - No need for repeat I&D at this time - Plan per Dr. Farnsworth is 2 weeks IV Ancef followed by an additional 2-4 weeks oral keflex - Gentle ROM shoulder - DC to home today Vital Signs Temp 98.1 F 02/10/18 11:12 Pulse 70 02/10/18 11:22 Resp 18 02/10/18 12:26 BP 127/80 02/10/18 11:22 Pulse Ox 98 02/10/18 11:12 Intake & Output 02/09/18 02/10/18 02/10/18 18:59 06:59 18:59 Intake Total 1035 840 195 Output Total 800 Balance 235 840 195 Intake: IV Fluids 75 75 ABX - CEFAZOLIN 55 55 NS (0.9%) 20 20 Oral 960 840 120 Output: Urine 800 Other: Estimated Void Medium Large Date of Last Bowel 02/10/18 Movement # Bowel Movements 1 1 Estimated Stool Amount Medium Medium # Voids 1 3 Laboratory Last Values WBC 18.9 10^3/ul (3.5-10.8) H 02/10/18 05:28 RBC 3.89 10^6/ul (4.00-5.40) L 02/10/18 05:28 Hgb 10.7 g/dl (12.0-16.0) L 02/10/18 05:28 Hct 33 % (35-47) L 02/10/18 05:28 MCV 85 fL (80-97) 02/10/18 05:28 MCH 28 pg (27-31) 02/10/18 05:28 MCHC 33 g/dl (31-36) 02/10/18 05:28 RDW 14 % (10.5-15) 02/10/18 05:28 Plt Count 376 10^3/ul (150-450) 02/10/18 05:28 MPV 6.1 fL (7.4-10.4) L 02/10/18 05:28 Neut % (Auto) Not Reportable 02/10/18 05:28 Lymph % (Auto) Not Reportable 02/10/18 05:28 [place] % (Auto) Not Reportable 02/10/18 05:28 Eos % (Auto) Not Reportable 02/10/18 05:28 Baso % (Auto) Not Reportable 02/10/18 05:28 Absolute Neuts (auto) Not Reportable 02/10/18 05:28 Absolute Lymphs (auto) Not Reportable 02/10/18 05:28 Absolute Monos (auto) Not Reportable 02/10/18 05:28 Absolute Eos (auto) Not Reportable 02/10/18 05:28 Absolute Basos (auto) Not Reportable 02/10/18 05:28 Absolute Nucleated RBC Not Reportable 02/10/18 05:28 Immature Gran % 8 % (0-9) 02/10/18 05:28 Neutrophils % 68 % 02/10/18 05:28 Band Neutrophils % 3 % (0-8) 02/10/18 05:28 Lymphocytes % 21 % 02/10/18 05:28 Monocytes % 3 % 02/10/18 05:28 Eosinophils % 1 % 02/05/18 09:18 Basophils % 1 % 02/06/18 14:34 Metamyelocytes % 1 % (0-2) 02/10/18 05:28 Myelocytes % 4 % (0-1) H 02/10/18 05:28 Nucleated RBC % Not Reportable 02/10/18 05:28 Abs Neuts (Manual) 14.3 10^3/ul (1.5-7.7) H 02/10/18 05:28 Abs Lymphs (Manual) 4.0 10^3/ul (1.0-4.8) 02/10/18 05:28 Abs Monocytes (Manual) 0.6 10^3/ul (0-0.8) 02/10/18 05:28 Absolute Eos (Manual) 0.2 10^3/ul (0-0.6) 02/05/18 09:18 Normal RBC Morphology Normal (Normal) 02/10/18 05:28 ESR 99 mm/Hr (0-14) H 02/10/18 05:28 Hem Pathologist Commnt 02/05/18 09:18 Sodium 137 mmol/L (135-145) 02/09/18 05:05 Potassium 3.8 mmol/L (3.5-5.0) 02/09/18 05:05 Chloride 104 mmol/L (101-111) 02/09/18 05:05 Carbon Dioxide 27 mmol/L (22-32) 02/09/18 05:05 Anion Gap 6 mmol/L (2-11) 02/09/18 05:05 BUN 10 mg/dL (6-24) 02/09/18 05:05 Creatinine 0.62 mg/dL (0.51-0.95) 02/09/18 05:05 Est GFR ( Amer) 128.4 (>60) 02/09/18 05:05 Est GFR (Non-Af Amer) 106.1 (>60) 02/09/18 05:05 BUN/Creatinine Ratio 16.1 (8-20) 02/09/18 05:05 Glucose 118 mg/dL (70-100) H 02/09/18 05:05 POC Glucose (mg/dL) 103 mg/dL (70-100) H 02/10/18 12:28 Calcium 8.9 mg/dL (8.6-10.3) 02/09/18 05:05 Total Bilirubin 0.40 mg/dL (0.2-1.0) 02/05/18 09:27 AST 12 U/L (13-39) L 02/05/18 09:27 ALT 17 U/L (7-52) 02/05/18 09:27 Alkaline Phosphatase 113 U/L (34-104) H 02/05/18 09:27 C-Reactive Protein 22.91 mg/L (<8.01) H 02/10/18 05:28 Total Protein 7.4 g/dL (6.4-8.9) 02/05/18 09:27 Albumin 3.6 g/dL (3.2-5.2) 02/05/18 09:27 Globulin 3.8 g/dL (2-4) 02/05/18 09:27 Albumin/Globulin Ratio 0.9 (1-3) L 02/05/18 09:27 Urine Color Straw 02/10/18 11:40 Urine Appearance Clear 02/10/18 11:40 Urine pH 7.0 (5-9) 02/10/18 11:40 Ur Specific [place] 1.011 (1.010-1.030) 02/10/18 11:40 Urine Protein Negative (Negative) 02/10/18 11:40 Urine Ketones Negative (Negative) 02/10/18 11:40 Urine Blood Negative (Negative) 02/10/18 11:40 Urine Nitrate Negative (Negative) 02/10/18 11:40 Urine Bilirubin Negative (Negative) 02/10/18 11:40 Urine Urobilinogen Negative (Negative) 02/10/18 11:40 Ur Leukocyte Esterase Negative (Negative) 02/10/18 11:40 Urine Glucose Negative (Negative) 02/10/18 11:40
[2018-02-10 11:23] VITALS: BP 127/80
[2018-02-10 12:43] LABS: Urine Appearance Clear; Urine Bilirubin Negative (Negative); Urine Blood Negative (Negative); Urine Color Straw; Urine Glucose Negative (Negative); Urine Ketones Negative (Negative); Urine Nitrite Negative (Negative); Urine Protein Negative (Negative); Urine Specific Gravity 1.011 (1.010-1.030); Urine Urobilinogen Negative (Negative)
--- NOTE | 2018-02-10 22:21 | DS ---
DISCHARGE SUMMARY: DATE OF ADMISSION: 02/05/18 DATE OF DISCHARGE: 02/10/18 DATE OF OPERATION: 02/06/18 PROVIDER: Dr. Antolin Angel.* (DICTATED BY JOLIE ALEXANDER) SERVICE DESK AGENT: JOLIE Cevallos PREOPERATIVE DIAGNOSES: 1. Left shoulder acromioclavicular joint infection. 2. Left shoulder acromioclavicular joint superficial subcutaneous abscess. 3. Right shoulder possible glenohumeral joint infection. 4. Possible early osteomyelitis, left shoulder distal clavicle. OPERATIVE PROCEDURES: 1. Left shoulder arthroscopic irrigation and debridement, glenohumeral joint, acromioclavicular joint. 2. Left shoulder arthroscopic subacromial bursectomy. 3. Left shoulder arthroscopic distal clavicle resection. 4. Left shoulder open incision, irrigation and debridement, superior shoulder area subcutaneous tissue fat. 5. Left shoulder, placement of drain, subcutaneous. 6. Left shoulder arthroscopic debridement undersurface low-grade supraspinatus tear. HISTORY: The patient is a 42-year-old female with poorly controlled diabetes mellitus, who presented to the emergency room with complaint of left shoulder pain, swelling and erythema. CT scan of the chest showed an abscess about the subcutaneous tissue. The patient had not had any skin trauma and reports that she had decreased range of motion due to pain. MRI showed infection of the AC joint, edema at the distal clavicle and communication of the AC joint likely with the superficial subcutaneous abscess. Glenohumeral joint was not clearly involved. An I and D was performed in the emergency room of the superficial abscess, which removed pus and packing was placed. The patient elected for surgery. HOSPITAL COURSE: The patient was admitted for [facility] on . She underwent arthroscopic I and D of the glenohumeral joint, acromioclavicular joint, and subacromial bursectomy, distal clavicle resection, left shoulder open incision and debridement of superior shoulder area subcutaneous tissue, left shoulder placement of drain subcutaneous, and left shoulder arthroscopic debridement undersurface of low-grade supraspinatus tear without complication. She was continued on vancomycin and Zosyn postoperatively. She was placed on heparin for DVT prophylaxis and Infectious Disease was consulted. Postop day 1, left shoulder dressing was clean, dry, and intact. Hemovac drain was working well. Sensation and circulation intact distally. Cultures grew MSSA. Per ID consult , the patient was placed on cefazolin 2 g IV q.8 hours for 2 weeks, followed by recommendation of 2 to 4 weeks of Keflex. Subsequent days, her range of motion continued to improve. There was no significant skin erythema and there continued to be decreased tenderness to palpation. Date of discharge was , she was seemed to be medically and orthopedically stable. Her dressings changed. Incisions were clean, dry, and intact without any surrounding erythema or discharge, although is nontender to gentle palpation. Active range of motion of the shoulder has improved as is passive range of motion tested for flexion and abduction both to about 110 degrees and at point, limited by onset of pain. She was neurovascularly intact distally. Vital signs included temperature 98.1, pulse 70, respiratory rate 18, blood pressure 127/80, pulse ox 98. White blood cell count 18.9. CRP 22.9. Only change to her home medications made by Medicine was an increase in her metformin dose to 1000 mg b.i.d. DISCHARGE MEDICATIONS: 1. Cyclobenzaprine 10 mg p.o. b.i.d. p.r.n. 2. Naproxen 500 mg p.o. b.i.d. p.r.n. 3. Atorvastatin 80 mg p.o. daily. 4. Acetaminophen 975 mg p.o. q.8 hours p.r.n. 5. Aspirin 325 mg p.o. b.i.d. for 10 days. 6. Docusate 100 mg p.o. b.i.d. p.r.n. 7. Oxycodone 5 mg 1 to 2 tabs every 4 to 6 hours as needed for pain, max daily dose of 8. 8. Metformin 1000 mg p.o. q.12 hours, to be followed up on by PCP. DISCHARGE PLAN: The patient will be weightbearing as tolerated. Gentle range of motion of the shoulder. Dry sterile dressing daily. May shower after postoperative day 3, antibiotics per Infectious Disease. The patient should be on Ancef 2 g IV q.8 hours for 2 weeks and then transition to oral Keflex for another 2 to 4 weeks, aspirin 325 one tablet every 12 hours for 10 days to prevent blood clots. The change in home medication will be increasing metformin dose to 1000 mg twice daily. Call orthopedic office for any concerns. The patient is to follow up with Dr. Angel this Wednesday or Wednesday, which is 02/14/18 or 02/15/18. Please call sooner with any concerns. She was discharged to home. JOLIE ALEXANDER [id number]/[facility] #: [id number] DAVID
== END 2018-02-10 13:40 | disposition home or self-care (01) | DRG 364 ==
LOC: ED 08:32 → MED 11:24 → SSU 02-06 23:02
PROVIDERS: ADMIT Hospitalist; ATTEND Hospitalist
PROC: 0RB Upper Joints, Excision (ICD-10-PCS; 2018-02-06)
PROC: 0LB20ZZ Excision of Left Shoulder Tendon, Open Approach (ICD-10-PCS; 2018-02-06)
PROC: 0RBK4ZZ Excision of Left Shoulder Joint, Percutaneous Endoscopic Approach (ICD-10-PCS; 2018-02-06)
PROC: 0PBB4ZZ Excision of Left Clavicle, Percutaneous Endoscopic Approach (ICD-10-PCS; 2018-02-06)
PROC: 0R9K4ZZ Drainage of Left Shoulder Joint, Percutaneous Endoscopic Approach (ICD-10-PCS; 2018-02-06)
PROC: 0MB24ZZ Excision of Left Shoulder Bursa and Ligament, Percutaneous Endoscopic Approach (ICD-10-PCS; 2018-02-06)
PROC: 02HV33Z Insertion of Infusion Device into Superior Vena Cava, Percutaneous Approach (ICD-10-PCS; 2018-02-06)
PROC: 0PBB0ZZ Excision of Left Clavicle, Open Approach (ICD-10-PCS; principal; 2018-02-06 11:00)
DX: L02.414 Cutaneous abscess of left upper limb (principal); M00.9 Pyogenic arthritis, unspecified; J98.11 Atelectasis; M00.012 Staphylococcal arthritis, left shoulder; M01.X1 Direct infection of shoulder joint in infectious and parasitic diseases classified elsewhere; L02.213 Cutaneous abscess of chest wall; E78.5 Hyperlipidemia, unspecified; B95.61 Methicillin susceptible Staphylococcus aureus infection as the cause of diseases classified elsewhere; E11.649 Type 2 diabetes mellitus with hypoglycemia without coma; M25.412 Effusion, left shoulder; E66.9 Obesity, unspecified; M75.02 Adhesive capsulitis of left shoulder; M75.112 Incomplete rotator cuff tear or rupture of left shoulder, not specified as traumatic; M75.52 Bursitis of left shoulder; Z83.3 Family history of diabetes mellitus; Z82.49 Family history of ischemic heart disease and other diseases of the circulatory system; Z88.8 Allergy status to other drugs, medicaments and biological substances; Z72.89 Other problems related to lifestyle; Z79.84 Long term (current) use of oral hypoglycemic drugs; Z98.51 Tubal ligation status; Z68.38 Body mass index [BMI] 38.0-38.9, adult
CPT/HCPCS: 36415; 71260; 80048; 80053; 81003; 85025; 85060; 85652; 86140; 87040; 87070; 87073; 87077; 87150; 87186; 87205; 87640; 87641; 93005; 99284; A9270-GY; C1751; J0330; J0690; J1100; J1170; J1644; J1885; J2250; J2270; J2405; J2543; J2704; J2765; J3010; J3370; Q9967

== ENCOUNTER 2018-02-20 10:37 | Inpatient (IN) | payer BC ==
--- NOTE | 2018-02-20 10:46 | ED ---
Upper Extremity Pain - HPI Summary HPI Summary: A 42 y/o female presents to the ED c/o pain and swelling of left shoulder. Currently, the patient is experiencing left shoulder pain reaching 7/10 in severity. As per triage, "increased pain and swelling to left shoulder, lump felt and seen. less range of motion today, believes infection is back". According to the patient, her pain is all throughout her left shoulder and down her arm. She stated that it is mainly from the stitches down to side of arm. She noted that it started swelling last night slightly, but today it has gotten worse. Additionally, she stated that her wound feels warm to the touch and does not feel right. She is concerned about infection or possible abscess. She has been tender since stitches on Wednesday (February 15, 2018), but she feels "pain in difference areas" as it is not constant pain. She doesn't know if her just completing routine activities are aggravating the pain. Patient agrees to US. - History of Current Complaint Chief Complaint: MILDREDhouDewayne Stated Complaint: LT SHOULDER POST OP PAIN Time Seen by Provider: 02/20/18 10:42 Hx Obtained From: Patient Hx Last Menstrual Period: 01/08/18 Onset/Duration: Started Days Ago, Still Present, Worse Since Timing: Intermittent, Lasting Days Severity Initially: Moderate - 7/10 Severity Currently: Moderate - 7/10 Pain Location: Shoulder - LEFT Aggravating Factor(s): Nothing Alleviating Factor(s): Nothing Associated Signs & Symptoms: Positive: Swelling. Negative: Fever - Allergies/Home Medications Allergies/Adverse Reactions: Allergies Allergy/AdvReac Type Severity Reaction Status Date / Time sumatriptan [From Imitrex] Allergy anaph Verified 02/20/18 12:01 PMH/Surg Hx/FS Hx/Imm Hx Endocrine/Hematology History: Reports: Hx Diabetes - po meds Denies: Hx Anticoagulant Therapy, Hx Thyroid Disease Cardiovascular History: Denies: Hx Hypertension, Hx Pacemaker/ICD Respiratory History: Denies: Hx Asthma, Hx Chronic Obstructive Pulmonary Disease (COPD) History: Denies: Hx Renal Disease Sensory History: Denies: Hx Contacts or Glasses, Hx Hearing Aid Opthamlomology History: Denies: Hx Contacts or Glasses Neurological History: Denies: Hx Dementia, Hx Seizures Psychiatric History: Denies: Hx Panic Disorder, Hx Substance Abuse - Surgical History Surgery Procedure, Year, and Place: tubal ligation - Immunization History Date of Tetanus Vaccine: UNKNOWN Date of Influenza Vaccine: NO Infectious Disease History: No Infectious Disease History: Denies: Hx Hepatitis, Hx Human Immunodeficiency Virus (HIV), Traveled Outside the [place] in Last 30 Days - Family History Known Family History: Positive: Hypertension, Diabetes - Social History Alcohol Use: Occasionally Alcohol Amount: once a month Hx Substance Use: No Substance Use Type: Reports: None Smoking Status (MU): Never Smoked Tobacco Review of Systems Negative: Fever Positive: Other - POSITIVE: LEFT SHOULDER PAIN Positive: Other - POSITIVE: SWELLING OF LEFT SHOULDER All Other Systems Reviewed And Are Negative: Yes Physical Exam - Summary Physical Exam Summary: Appearance: The patient is well-nourished in no acute distress and in no acute pain. Skin: The skin is warm and dry and skin color reflects adequate perfusion. Left shoulder wound looks clean, but it is swollen in the medial aspect of the wound. HEENT: The head is normocephalic and atraumatic. The pupils are equal and reactive. The conjunctivae are clear and without drainage. Nares are patent and without drainage. Mouth reveals moist mucous membranes and the throat is without erythema and exudate. The external ears are intact. The ear canals are patent and without drainage. The tympanic membranes are intact. Neck: The neck is supple with full range of motion and non-tender. There are no carotid bruits. There is no neck vein distension. Respiratory: Chest is non-tender. Lungs are clear to auscultation and breath sounds are symmetrical and equal. Cardiovascular: Heart is regular rate and rhythm. There is no murmur or rub auscultated. There is no peripheral edema and pulses are symmetrical and equal. Abdomen: The abdomen is soft and non-tender. There are normal bowel sounds heard in all four quadrants and there is no organomegaly palpated. Musculoskeletal: There is no back tenderness noted. Extremities are non-tender with full range of motion. There is good capillary refill. There is no peripheral edema or calf tenderness elicited. Neurological: Patient is alert and oriented to person, place and time. The patient has symmetrical motor strength in all four extremities. Cranial nerves are grossly intact. Deep tendon reflexes are symmetrical and equal in all four extremities. Psychiatric: The patient has an appropriate affect and does not exhibit any anxiety or depression. Triage Information Reviewed: Yes Vital Signs On Initial Exam: Initial Vitals Temp Pulse Resp BP Pulse Ox 96.3 F 87 16 183/117 97 02/20/18 10:39 02/20/18 10:39 02/20/18 10:39 02/20/18 10:39 02/20/18 10:39 Vital Signs Reviewed: Yes Diagnostics - Vital Signs Vital Signs Temp Pulse Resp BP Pulse Ox 02/20/18 10:39 96.3 F 87 16 183/117 97 - Laboratory Result Diagrams: 02/20/18 10:09 02/20/18 10:09 Lab Statement: Any lab studies that have been ordered have been reviewed, and results considered in the medical decision making process. - Ultrasound No standard instances Ultrasound Interpretation Completed By: Radiologist Summary of Ultrasound Findings: SOFT TISSUE US: A complicated subcutaneous fluid collection at the postoperative site along the anterior left shoulder measures 6.2 x 5.1 x 1.2 cm. ED PHYSICIAN REVIEWED THIS RADIOLOGY REPORT. Course/Dx - Course Course Of Treatment: Ms. Villarreal presented with increasing pain in her left shoulder after surgery on 06 February. She went home from the hospital on the third she had an extensive infection in the area. She has a PICC line in and is currently getting cephalexin. She was nontoxic in appearance on arrival here with stable vitals but had some swelling around noon especially in the medial aspect and tenderness. Her mild leukocytosis was a little bit improved and her mild CRP elevation was about the same. CT of the area showed a likely abscess of about 5 x [address] Mcdaniel was contacted came to the department to evaluate her and elected to take her to the operating room. - Diagnoses Provider Diagnoses: Postoperative abscess - Physician Notifications Discussed Care of Patient With: Yessi Zambrano Time Discussed With Above Provider: 13:04 Instructed by Provider To: Other - WILL SEE PATIENT. 1510 - ACCEPTS PATIENT FOR ADMISSION TO OR. Discharge - Sign-Out/Discharge Documenting (check all that apply): Patient Departure - ADMIT, Sign-Out Patient - GAYLE Signing out patient TO: Yessi Zambrano Receiving patient FROM: Keyshawn Bolanos - Discharge Plan Condition: Stable Disposition: ADMITTED TO [facility] Referrals: Perico CAZARES,Wilian Wolf [Primary Care Provider] - - Billing Disposition and Condition Condition: STABLE Disposition: Admitted to [facility] - Attestation Statements Document Initiated by Alon: Yes Documenting Scribe: Moe Correa Provider For Whom Alon is Documenting (Include Credential): Keyshawn Bolanos MD Scribe Attestation: IMoe, scribed for Keyshawn Bolanos MD on 02/20/18 at 1727. Scribe Documentation Reviewed: Yes Provider Attestation: The documentation as recorded by the Moe murray accurately reflects the service I personally performed and the decisions made by me, Keyshawn Bolanos MD Status of Scribe Document: Viewed
--- OUTSIDE RECORDS SUMMARY | 2018-02-20 10:52 | XMS REPORT | Continuity of Care Document ---
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 ETOH Use Denies alcohol use Tobacco Use Start: Unknown Patient has never smoked Smoking Status Reviewed: 02/15/18 Patient has never smoked Exercise Type/Frequency Exercises sporadically Allergies, Adverse Reactions, Alerts Description No Information Medications Medication Date Status Form Strength Qnty SIG Indications Ordering Provider Aspirin 02/10/ Active Tablets 325mg 20tabs 1 tab every 12 Antolin 2019 hours for 10 F days MD Jeanne Oxycodone 02/10/ Active Tablets 5mg 30tabs 1 tab every Antolin HCL 2019 4-6 hours as F needed for Jeanne, pain mdd 6 Metformin 02/10/ Active Tablets 1000mg 30tabs 1 tab every 12 Antolin HCL 2019 hours. Follow F up with PCP Jeanne for refill Docusate 02/10/ Active Capsules 100mg 90caps 1 tab every 12 Antolin Sodium 2019 hours as F needed for Jeanne, constipation Cefazolin / Active Soln 2GM/20ML 2gm IV q 8 hrs Unknown Sodium 0000 Prefill x 14 days Syringe through [facility] Immunizations Description No Information Available Vital Signs Date Vital Result Comment 02/15/2018 11:05am Height 65 inches 5'5" Weight 222.00 lb Respiratory Rate 16 /min Body Temperature 97.6 F Pain Level 3 BMI (Body Mass Index) 36.9 kg/m2 Results Description No Information Available Procedures Date Code Description Status 02/06/2018 08010 Arthroscopy,Shoulder,Distal Claviculectomy Incl Dist Completed Articular SR 02/06/2018 12809 Arthroscopy,Shoulder,Distal Claviculectomy Incl Dist Completed Articular SR 02/06/2018 42772 Arthroscopy Shoulder Debridement Extensive Completed 02/06/2018 78322 Arthroscopy Shoulder Debridement Extensive Completed 02/06/2018 12432 I & D Abscess/Hematoma Shoulder Completed 02/06/2018 13758 I & D Abscess/Hematoma Shoulder Completed 02/05/2018 24088 I&D Of Abscess Complicated Completed 05/15/2015 79368 Holter Monitor Review (24 hr)dr holland & carlotta only Completed Encounters Description No Information Available Plan of Treatment Future Appointment(s):03/01/2018 1:45 pm - Antolin Angel MD at [facility].02/15/2018 - Antolin Angel [id number] Cutaneous abscess of left upper limbNew Therapy:Physical TherapyFollow up: Follow up: 2 weeks Patient will make appointment to see Dr. 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
[2018-02-20 11:13] LABS: ABS Basophils 0.1 10^3/ul (0-0.2); ABS Eosinophils 0.2 10^3/ul (0-0.6); ABS Lymphocytes 2.7 10^3/ul (1.0-4.8); ABS Monocytes 0.6 10^3/ul (0-0.8); ABS Neutrophils 7.3 10^3/ul (1.5-7.7); ABS Nucleated RBC 0 10^3/ul; Eosinophil % 1.7 %; Hematocrit 37 % (35-47); Hemoglobin 12.3 g/dl (12.0-16.0); Lymphocyte % 24.8 %; Mean Corpuscular HGB Conc 33 g/dl (31-36); Mean Corpuscular Hemoglobin 28 pg (27-31); Mean Corpuscular Volume 85 fL (80-97); Mean Platelet Volume 6.8 fL (7.4-10.4); Nucleated Red Blood Cells % 0; Platelet Count 388 10^3/ul (150-450); Red Blood Count 4.33 10^6/ul (4.00-5.40); Red Cell Distribution Width 14 % (10.5-15); White Blood Count 10.9 10^3/ul (3.5-10.8)
[2018-02-20 11:32] LABS: Albumin/Globulin Ratio 1.1 (1-3); BUN/Creatinine Ratio 16.9 (8-20); C Reactive Protein 23.05 mg/L (<8.01); Calcium 9.9 mg/dL (8.6-10.3); EGFR Non-African American 100.4 (>60); Globulin 3.8 g/dL (2-4); Potassium 4.2 mmol/L (3.5-5.0); Total Bilirubin 0.4 mg/dL (0.2-1.0); Total Protein 7.8 g/dL (6.4-8.9)
[2018-02-20] MEDS ORDERED: Acetaminophen TAB* 325 MG PO ONE (15:09)
[2018-02-20] MEDS ORDERED: Bupivacaine 0.5%* 50 ML VIAL ONE (18:06)
[2018-02-20] MEDS ORDERED: fentaNYL* 50 MCG/ML 5 ML VIAL (250 MCG VIAL) ONE (18:11)
[2018-02-20] MEDS ORDERED: Succinylcholine* 20 MG/ML 10 ML VIAL ONE (18:11)
[2018-02-20] MEDS ORDERED: Midazolam* 1 MG/ML 2 ML VIAL (2 MG) ONE (18:11)
[2018-02-20] MEDS ORDERED: Propofol* 10 MG/ML 20 ML BTL ONE (18:11)
[2018-02-20] MEDS ORDERED: Lidocaine 2% PF * 5 ML VIAL ONE (18:13)
[2018-02-20] MEDS ORDERED: Dexamethasone IV* 4 MG/ML 1 ML (4 MG) ONE (18:37)
[2018-02-20] MEDS ORDERED: Ondansetron INJ* 2 MG/ML VIAL ONE (18:37)
[2018-02-20] MEDS ORDERED: Acetaminophen TAB* 325 MG PO PRN (18:48)
[2018-02-20] MEDS ORDERED: Naloxone* 0.4 MG/ML 1 ML VIAL IV PRN (18:48)
[2018-02-20] MEDS ORDERED: PROCHLORPERAZINE INJ 5 MG/ML 2 ML VIAL IV PRN (18:48)
[2018-02-20] MEDS ORDERED: Ketorolac INJ* 30 MG/ML 1 ML VIAL IV PRN (18:48)
[2018-02-20] MEDS ORDERED: fentaNYL* 50 MCG/ML 2 ML VIAL (100 MCG VIAL) IV PRN (18:48)
[2018-02-20] MEDS ORDERED: Morphine VIAL* 4 MG/ML VIAL (1 ml vial) IV PRN (18:48)
[2018-02-20] MEDS ORDERED: DiMENhydriNATE IV* 50 MG/ML VIAL IV PUSH PRN (18:48)
[2018-02-20] MEDS ORDERED: HYDROcodone/ACETAMIN 5-325 MG* 1 TAB PO PRN (18:48)
[2018-02-20] MEDS ORDERED: Ketorolac INJ* 30 MG/ML 1 ML VIAL ONE (20:20)
--- NOTE | 2018-02-20 20:28 | OP ---
DATE OF OPERATION: 02/20/18 - ROOM #349 DATE OF : [birth year]. SURGEON: Yessi Zambrano M.D. ANESTHESIA: General. PRE-OP DIAGNOSIS: Abscess of the left shoulder. POST-OP DIAGNOSIS: Abscess of the left shoulder. OPERATIVE PROCEDURE: I and D left shoulder. ESTIMATED BLOOD LOSS: Zero. INDICATIONS FOR PROCEDURE: Rebecca is a 42-year-old woman who, 2 weeks ago, had an abscess of the left shoulder. This was treated by Dr. Angel with wash- out. She has been on IV antibiotics, continuous drip of cefazolin and was to follow up with Dr. Guzman tomorrow. She over the last 2 days has had increasing pain in her left shoulder, especially got bad yesterday and she noticed swelling in her shoulder. There has not been any drainage. Ultrasound was done when the patient came to the emergency room, it shows a large fluid collection anterior to the shoulder. She is very tender and the area is fluctuant consistent with a recollection of her abscess. She presents for repeat I and D of the left shoulder. DESCRIPTION OF PROCEDURE: The patient was brought to the operating room, was given a general anesthetic, and placed in the supine position on the operating table. The skin of her left shoulder area was prepped and draped in the usual sterile fashion. The anterior scar was incised and there was a large expression of purulent fluid. This was cultured again. There was some tracking down under the acromion. This was abundantly washed out with 3 L of saline and then a Nita drain was placed and the wound was loosely closed, was dressed with Xeroform, 4x4, and ABD. The patient tolerated the procedure well and was awakened from general anesthesia and brought to the recovery room in good condition. [id number]/[facility] #: [id number] [facility]
[2018-02-20] MEDS ORDERED: Docusate CAP* 100 MG PO PRN (21:21)
[2018-02-20] MEDS ORDERED: Cyclobenzaprine TAB* 10 MG PO PRN (21:34)
[2018-02-21] MEDS: ceFAZolin* 2 GM* Q8H (Duplex) IVPB SCH ×2 (00:02→08:14)
[2018-02-21] MEDS: Ibuprofen TAB* 600 MG PO SCH ×4 (05:41→23:33)
[2018-02-21] MEDS: Atorvastatin* 80 MG TAB PO SCH (10:11)
[2018-02-21] MEDS: metFORMIN* 1,000 MG TAB PO SCH ×2 (10:12→22:06)
[2018-02-21] MEDS: HYDROcodone/ACETAMIN 5-325 MG* 1 TAB PO PRN (10:12)
--- NOTE | 2018-02-21 12:21 | CONS ---
CONSULTATION REPORT: DATE OF CONSULT: 02/21/18 REQUESTING PHYSICIAN: Dr. Zambrano. CONSULTING SERVICE: Infectious Disease. REASON FOR CONSULT: Left shoulder infection, abscess. IMPRESSION: 1. Recurrence of staphylococcal left shoulder abscess, which was initially associated with septic left acromioclavicular joint. This occurred while on Ancef, may be an issue of resistance developing to the antibiotic. 2. Type 2 diabetes. 3. Obesity. RECOMMENDATIONS: We will continue IV antibiotics. I do not think it is definite that the Ancef was a problem, but just to be sure, we will change her to oxacillin 2 g every 4 hours, which she can have at home via continuous infusion by pump as well. We will start the clock over on her IV antibiotic therapy and plan on a month's worth. She will have weekly CBC, CMP, and CRP as before. HISTORY OF PRESENT ILLNESS: This is a 42-year-old woman who had a septic left acromioclavicular joint and soft tissue abscess, which was drained on 02/06/18. Cultures grew Staph aureus, methicillin sensitive. She was discharged on Ancef , which she had been tolerating well and not having issues with infusions. Her shoulder felt fine until last , she started to get a little discomfort. Then over the weekend, noticed a bubble form under the incision, so she came to the hospital on the 02/20/17. Dr. Zambrano took her to the OR last night for another washout and found purulent fluid under the skin. The pus did also track down under the acromion per her report. Today, her pain is a little a bit better. She is having no fever. Her appetite is good, not having any trouble with the PICC line. PAST MEDICAL HISTORY: 1. Obesity. 2. Type 2 diabetes. 3. Hyperlipidemia. 4. Status post tubal ligation. MEDICATIONS: 1. Tylenol. 2. Lipitor. 3. Cefazolin 2 g every 8 hours. 4. Docusate. 5. Flexeril. 6. Ibuprofen. 7. Metformin. ALLERGIES: IMITREX. FAMILY HISTORY: Mother with diabetes and hypertension at 59. Dad is alive with diabetes. SOCIAL HISTORY: She is a nonsmoker. She drinks alcohol occasionally. She works at [employer]. Lives with her and 3 children. REVIEW OF SYSTEMS: All negative except as noted above to 14-point review. PHYSICAL EXAM: Vital Signs: Temperature 37, heart rate 60, respiratory rate 16 , blood pressure 110/65, oxygen saturation 99% on room air. In general, she is awake, not in distress. Neurologic: She is oriented x3, follows all commands. HEENT: There is no conjunctival hemorrhage. Oropharynx without lesions. Neck is supple, without mass. Heart is regular rate and rhythm, without murmurs, rubs, or gallops. Lungs are clear to auscultation bilaterally. Abdomen: Soft, nontender, nondistended. There are bowel sounds present. Skin: There is no rash or splinter hemorrhage. Musculoskeletal: There is no spine tenderness to palpation. Left anterior shoulder incision intact. There is no erythema. There is diffuse edema. DIAGNOSTIC STUDIES/LAB DATA: Creatinine 0.6, CRP is 23. Initial presentation was 250. White blood cell count 10, hemoglobin 12, platelets 38. Please see impression and recommendations as outlined above. Thank you for asking me to see Ms. Villarreal in consultation. [id number]/[facility] #: [id number] DAVID
[2018-02-21] MEDS: Oxacillin(*) 2 GM in NS 0.9% 100 ML* 100 ML IVPB SCH ×3 (14:56→22:06)
--- NOTE | 2018-02-21 16:25 | PN ---
Progress Note - Progress Note Date of Service: 02/21/18 SOAP: Subjective: []Patient seen and examined at bedside. She feels well without fever, chills, CP , SOB, dizziness. Per patient her michele drain was putting out bloody discharge overnight. Objective: []General: Well appearing, NAD L shoulder: Dressing CDI, F/E at the wrist and elbow intact, forward flexion of the shoulder to 80 degrees, abduction to 90 degrees with endpoints limited by pain. Sensation intact to light touch throughout the LUE. Radial pulse 2+, capillary refill less than two seconds distally. Calves supple and nontender without erythema, edema or palpable cords Assessment: []POD 1 sp I&D left shoulder Plan: []WBAT, work on shoulder ROM Anticipate pulling michele drain tomorrow as long as discharge slows PT/OT ABX changed to oxacillin per ID recommendation Vital Signs Temp 98.2 F 02/21/18 15:27 Pulse 79 02/21/18 15:27 Resp 18 02/21/18 15:27 BP 111/55 02/21/18 15:27 Pulse Ox 96 02/21/18 15:27 Intake & Output 02/20/18 02/21/18 02/21/18 18:59 06:59 18:59 Intake Total 1300 915 Output Total 300 0 Balance 1000 915 Weight 220 lb Intake: IV Fluids 750 20 LR 750 NS (0.9%) 20 IVPB 50 55 ABX - CEFAZOLIN 50 55 Oral 500 840 Output: Urine 300 0 Laboratory Last Values WBC 10.9 10^3/ul (3.5-10.8) H 02/20/18 10:09 RBC 4.33 10^6/ul (4.00-5.40) 02/20/18 10:09 Hgb 12.3 g/dl (12.0-16.0) 02/20/18 10:09 Hct 37 % (35-47) 02/20/18 10:09 MCV 85 fL (80-97) 02/20/18 10:09 MCH 28 pg (27-31) 02/20/18 10:09 MCHC 33 g/dl (31-36) 02/20/18 10:09 RDW 14 % (10.5-15) 02/20/18 10:09 Plt Count 388 10^3/ul (150-450) 02/20/18 10:09 MPV 6.8 fL (7.4-10.4) L 02/20/18 10:09 Neut % (Auto) 66.8 % 02/20/18 10:09 Lymph % (Auto) 24.8 % 02/20/18 10:09 [place] % (Auto) 5.5 % 02/20/18 10:09 Eos % (Auto) 1.7 % 02/20/18 10:09 Baso % (Auto) 1.2 % 02/20/18 10:09 Absolute Neuts (auto) 7.3 10^3/ul (1.5-7.7) 02/20/18 10:09 Absolute Lymphs (auto) 2.7 10^3/ul (1.0-4.8) 02/20/18 10:09 Absolute Monos (auto) 0.6 10^3/ul (0-0.8) 02/20/18 10:09 Absolute Eos (auto) 0.2 10^3/ul (0-0.6) 02/20/18 10:09 Absolute Basos (auto) 0.1 10^3/ul (0-0.2) 02/20/18 10:09 Absolute Nucleated RBC 0 10^3/ul 02/20/18 10:09 Nucleated RBC % 0 02/20/18 10:09 Sodium 137 mmol/L (135-145) 02/20/18 10:09 Potassium 4.2 mmol/L (3.5-5.0) 02/20/18 10:09 Chloride 101 mmol/L (101-111) 02/20/18 10:09 Carbon Dioxide 26 mmol/L (22-32) 02/20/18 10:09 Anion Gap 10 mmol/L (2-11) 02/20/18 10:09 BUN 11 mg/dL (6-24) 02/20/18 10:09 Creatinine 0.65 mg/dL (0.51-0.95) 02/20/18 10:09 Est GFR ( Amer) 121.5 (>60) 02/20/18 10:09 Est GFR (Non-Af Amer) 100.4 (>60) 02/20/18 10:09 BUN/Creatinine Ratio 16.9 (8-20) 02/20/18 10:09 Glucose 121 mg/dL (70-100) H 02/20/18 10:09 POC Glucose (mg/dL) 148 mg/dL (70-100) H 02/21/18 12:29 Calcium 9.9 mg/dL (8.6-10.3) 02/20/18 10:09 Total Bilirubin 0.40 mg/dL (0.2-1.0) 02/20/18 10:09 AST 21 U/L (13-39) 02/20/18 10:09 ALT 14 U/L (7-52) 02/20/18 10:09 Alkaline Phosphatase 78 U/L (34-104) 02/20/18 10:09 C-Reactive Protein 23.05 mg/L (<8.01) H 02/20/18 10:09 Total Protein 7.8 g/dL (6.4-8.9) 02/20/18 10:09 Albumin 4.0 g/dL (3.2-5.2) 02/20/18 10:09 Globulin 3.8 g/dL (2-4) 02/20/18 10:09 Albumin/Globulin Ratio 1.1 (1-3) 02/20/18 10:09
[2018-02-22] MEDS: Oxacillin(*) 2 GM in NS 0.9% 100 ML* 100 ML IVPB SCH ×6 (02:28→22:18)
[2018-02-22 05:21] LABS: ABS Basophils 0.2 10^3/ul (0-0.2); ABS Eosinophils 0.1 10^3/ul (0-0.6); ABS Lymphocytes 4.3 10^3/ul (1.0-4.8); ABS Monocytes 0.7 10^3/ul (0-0.8); ABS Neutrophils 7.2 10^3/ul (1.5-7.7); ABS Nucleated RBC 0 10^3/ul; Eosinophil % 1.1 %; Hematocrit 35 % (35-47); Hemoglobin 11.5 g/dl (12.0-16.0); Lymphocyte % 34.6 %; Mean Corpuscular HGB Conc 33 g/dl (31-36); Mean Corpuscular Hemoglobin 28 pg (27-31); Mean Corpuscular Volume 86 fL (80-97); Mean Platelet Volume 6.5 fL (7.4-10.4); Nucleated Red Blood Cells % 0; Platelet Count 329 10^3/ul (150-450); Red Blood Count 4.06 10^6/ul (4.00-5.40); Red Cell Distribution Width 14 % (10.5-15); White Blood Count 12.5 10^3/ul (3.5-10.8)
[2018-02-22 05:35] LABS: BUN/Creatinine Ratio 17.3 (8-20); C Reactive Protein 13.71 mg/L (<8.01); Calcium 9.3 mg/dL (8.6-10.3); EGFR Non-African American 85.2 (>60)
[2018-02-22] MEDS: Ibuprofen TAB* 600 MG PO SCH ×3 (05:52→18:15)
[2018-02-22] MEDS: HYDROcodone/ACETAMIN 5-325 MG* 1 TAB PO PRN (09:26)
[2018-02-22] MEDS: Atorvastatin* 80 MG TAB PO SCH (09:27)
[2018-02-22] MEDS: metFORMIN* 1,000 MG TAB PO SCH ×2 (09:27→22:20)
--- NOTE | 2018-02-22 11:06 | PN ---
Progress Note - Progress Note Date of Service: 02/22/18 SOAP: Subjective: []Patient was seen and examined at bedside today. She is feeling well without feeling of fever, chills, CP, SOB, dizziness, nausea, diarrhea. Had a migraine yesterday which is a chronic recurring condition, symptoms managed well with caffeine ingestion. Objective: []General: Well appearing, NAD L shoulder: Dressing changed, incision is CDI. Removed the michele drain which had serosanguinous drainage within the drain, no additional drainage could be expressed and there was no purulence at all. No erythema of the shoulder. F/E at the wrist and elbow intact, forward flexion of the shoulder to 110 degrees, abduction to 110 degrees with endpoints limited by pain. Sensation intact to light touch throughout the LUE. Radial pulse 2+, capillary refill less than two seconds distally. Calves supple and nontender without erythema, edema or palpable cords Assessment: []POD 2 sp I&D left shoulder, Dr Zambrano Plan: []WBAT, work on shoulder ROM Daily dry sterile dressing change PT/OT ABX: oxacillin 2 g IV Q 4 hr. This can be given via continuous infusion at home x 1 month. Needs a weekly CBC, CMP, CRP while on this medication Remains afebrile, asymptomatic with improved shoulder ROM. CRP is trending down. WBC elevated though normal differential. Anticipate watching WBC and exam another day with DC to home tentatively tomorrow. Vital Signs Temp 98.3 F 02/22/18 07:51 Pulse 71 02/22/18 07:51 Resp 18 02/22/18 09:26 BP 113/68 02/22/18 07:51 Pulse Ox 96 02/22/18 08:00 Intake & Output 02/21/18 02/22/18 02/22/18 18:59 06:59 18:59 Intake Total 1125 995 350 Output Total 0 1050 Balance 1125 -55 350 Intake: IV Fluids 20 NS (0.9%) 20 IVPB 265 335 ABX - CEFAZOLIN 55 oxacillin 210 335 Oral 840 660 350 Output: Urine 0 1050 Other: # Bowel Movements 0 Laboratory Last Values WBC 12.5 10^3/ul (3.5-10.8) H 02/22/18 05:10 RBC 4.06 10^6/ul (4.00-5.40) 02/22/18 05:10 Hgb 11.5 g/dl (12.0-16.0) L 02/22/18 05:10 Hct 35 % (35-47) 02/22/18 05:10 MCV 86 fL (80-97) 02/22/18 05:10 MCH 28 pg (27-31) 02/22/18 05:10 MCHC 33 g/dl (31-36) 02/22/18 05:10 RDW 14 % (10.5-15) 02/22/18 05:10 Plt Count 329 10^3/ul (150-450) 02/22/18 05:10 MPV 6.5 fL (7.4-10.4) L 02/22/18 05:10 Neut % (Auto) 57.5 % 02/22/18 05:10 Lymph % (Auto) 34.6 % 02/22/18 05:10 [place] % (Auto) 5.3 % 02/22/18 05:10 Eos % (Auto) 1.1 % 02/22/18 05:10 Baso % (Auto) 1.5 % 02/22/18 05:10 Absolute Neuts (auto) 7.2 10^3/ul (1.5-7.7) 02/22/18 05:10 Absolute Lymphs (auto) 4.3 10^3/ul (1.0-4.8) 02/22/18 05:10 Absolute Monos (auto) 0.7 10^3/ul (0-0.8) 02/22/18 05:10 Absolute Eos (auto) 0.1 10^3/ul (0-0.6) 02/22/18 05:10 Absolute Basos (auto) 0.2 10^3/ul (0-0.2) 02/22/18 05:10 Absolute Nucleated RBC 0 10^3/ul 02/22/18 05:10 Nucleated RBC % 0 02/22/18 05:10 Sodium 138 mmol/L (135-145) 02/22/18 05:13 Potassium 4.0 mmol/L (3.5-5.0) 02/22/18 05:13 Chloride 103 mmol/L (101-111) 02/22/18 05:13 Carbon Dioxide 25 mmol/L (22-32) 02/22/18 05:13 Anion Gap 10 mmol/L (2-11) 02/22/18 05:13 BUN 13 mg/dL (6-24) 02/22/18 05:13 Creatinine 0.75 mg/dL (0.51-0.95) 02/22/18 05:13 Est GFR ( Amer) 103.0 (>60) 02/22/18 05:13 Est GFR (Non-Af Amer) 85.2 (>60) 02/22/18 05:13 BUN/Creatinine Ratio 17.3 (8-20) 02/22/18 05:13 Glucose 113 mg/dL (70-100) H 02/22/18 05:13 POC Glucose (mg/dL) 125 mg/dL (70-100) H 02/21/18 18:10 Calcium 9.3 mg/dL (8.6-10.3) 02/22/18 05:13 Total Bilirubin 0.40 mg/dL (0.2-1.0) 02/20/18 10:09 AST 21 U/L (13-39) 02/20/18 10:09 ALT 14 U/L (7-52) 02/20/18 10:09 Alkaline Phosphatase 78 U/L (34-104) 02/20/18 10:09 C-Reactive Protein 13.71 mg/L (<8.01) H 02/22/18 05:13 Total Protein 7.8 g/dL (6.4-8.9) 02/20/18 10:09 Albumin 4.0 g/dL (3.2-5.2) 02/20/18 10:09 Globulin 3.8 g/dL (2-4) 02/20/18 10:09 Albumin/Globulin Ratio 1.1 (1-3) 02/20/18 10:09
[2018-02-22] MEDS: Heparin VIAL(*) 5000 UNITS/ML VIAL (FIVE THOUSAND) SUBCUT SCH ×2 (14:02→22:21)
--- NOTE | 2018-02-22 15:02 | PN ---
Progress Note - Progress Note Date of Service: 02/22/18 SOAP: Subjective: CC: shoulder infection HPI: 42 year old woman with recurrence of left shoulder abscess and AC joint infection; pain is improving. No fever, rash, or diarrhea. Objective: Vital Signs Temp 36.7 C 02/22/18 11:10 Pulse 82 02/22/18 11:10 Resp 16 02/22/18 11:10 BP 125/77 02/22/18 11:10 Pulse Ox 97 02/22/18 11:10 Intake & Output 02/21/18 02/22/18 02/22/18 18:59 06:59 18:59 Intake Total 1125 995 827 Output Total 0 1050 700 Balance 1125 -55 127 Intake: IV Fluids 20 127 NS (0.9%) 20 17 oxacillin 110 IVPB 265 335 ABX - CEFAZOLIN 55 oxacillin 210 335 Oral 840 660 700 Output: Urine 0 1050 700 Other: # Bowel Movements 0 Gen:awake, no distress HEENT: no thrush Heart:RRR no murmur Lungs:CTA BL Abd:+BS NTND soft Skin:no rash MSK: L shoulder wrapped Laboratory Results - last 24 hr 02/21/18 02/22/18 02/22/18 18:10 05:10 05:13 WBC 12.5 H RBC 4.06 Hgb 11.5 L Hct 35 MCV 86 MCH 28 MCHC 33 RDW 14 Plt Count 329 MPV 6.5 L Neut % (Auto) 57.5 Lymph % (Auto) 34.6 [place] % (Auto) 5.3 Eos % (Auto) 1.1 Baso % (Auto) 1.5 Absolute Neuts (auto) 7.2 Absolute Lymphs (auto) 4.3 Absolute Monos (auto) 0.7 Absolute Eos (auto) 0.1 Absolute Basos (auto) 0.2 Absolute Nucleated RBC 0 Nucleated RBC % 0 Sodium 138 Potassium 4.0 Chloride 103 Carbon Dioxide 25 Anion Gap 10 BUN 13 Creatinine 0.75 Est GFR ( Amer) 103.0 Est GFR (Non-Af Amer) 85.2 BUN/Creatinine Ratio 17.3 Glucose 113 H POC Glucose (mg/dL) 125 H Calcium 9.3 C-Reactive Protein 13.71 H Assessment: 1. Left shoulder AC joint infection and abscess due to MSSA, recurrence 2. prison abx 3. elevated CRP Plan: 1. oxacillin 2 gm IV Q4hrs; day 04/07; weekly cbc, cmp, crp 35 minutes floor time >50% face to face in counseling regarding antibiotic plans and side effects
[2018-02-22 20:23] LABS: ABS Basophils 0.1 10^3/ul (0-0.2); ABS Eosinophils 0.1 10^3/ul (0-0.6); ABS Lymphocytes 3.6 10^3/ul (1.0-4.8); ABS Monocytes 0.8 10^3/ul (0-0.8); ABS Neutrophils 8.1 10^3/ul (1.5-7.7); ABS Nucleated RBC 0 10^3/ul; Hematocrit 33 % (35-47); Hemoglobin 10.9 g/dl (12.0-16.0); Mean Corpuscular HGB Conc 33 g/dl (31-36); Mean Corpuscular Hemoglobin 28 pg (27-31); Mean Corpuscular Volume 86 fL (80-97); Mean Platelet Volume 6.7 fL (7.4-10.4); Nucleated Red Blood Cells % 0; Platelet Count 317 10^3/ul (150-450); Red Blood Count 3.87 10^6/ul (4.00-5.40); Red Cell Distribution Width 14 % (10.5-15); White Blood Count 12.7 10^3/ul (3.5-10.8)
[2018-02-22 20:31] LABS: Activated Partial Thrombo Time 28.7 seconds (26.0-36.3); INR 0.94 (0.77-1.02)
[2018-02-22 20:40] LABS: EGFR Non-African American 72.7 (>60)
[2018-02-23] MEDS: Ibuprofen TAB* 600 MG PO SCH ×4 (00:23→18:33)
[2018-02-23] MEDS: Oxacillin(*) 2 GM in NS 0.9% 100 ML* 100 ML IVPB SCH ×6 (03:25→22:59)
[2018-02-23] MEDS: Heparin VIAL(*) 5000 UNITS/ML VIAL (FIVE THOUSAND) SUBCUT SCH ×3 (06:08→23:00)
[2018-02-23] MEDS: Ondansetron INJ* 2 MG/ML VIAL IV PRN (06:44)
[2018-02-23 09:10] LABS: Hematocrit 35 % (35-47); Hemoglobin 11.8 g/dl (12.0-16.0); Mean Corpuscular HGB Conc 33 g/dl (31-36); Mean Corpuscular Hemoglobin 28 pg (27-31); Mean Corpuscular Volume 84 fL (80-97); Mean Platelet Volume 6.6 fL (7.4-10.4); Platelet Count 303 10^3/ul (150-450); Red Blood Count 4.22 10^6/ul (4.00-5.40); Red Cell Distribution Width 14 % (10.5-15); White Blood Count 13.5 10^3/ul (3.5-10.8)
[2018-02-23 09:46] LABS: ABS Basophils 0.1 10^3/ul (0-0.2); ABS Eosinophils 0.3 10^3/ul (0-0.6); ABS Neutrophils 9.6 10^3/ul (1.5-7.7); Lymphocytes % 25 %; Monocytes % 1 %; Neutrophil % 71 %
[2018-02-23] MEDS: Atorvastatin* 80 MG TAB PO SCH (09:54)
[2018-02-23] MEDS: metFORMIN* 1,000 MG TAB PO SCH ×2 (09:54→20:13)
--- NOTE | 2018-02-23 13:45 | PN ---
Progress Note - Progress Note Date of Service: 02/23/18 SOAP: Subjective: []patient seen and examined at bedside. She is feeling well with improved ROM of her left shoulder, no feeling of fever, chills, CP, SOB, dizziness. Feels abx make her nauseous. Objective: []General: Well appearing, NAD L shoulder: Dressing changed, incision is CDI with very minimal serosanguinous drainage on the dressing, no active discharge and no surrounding erythema. No erythema of the shoulder. F/E at the wrist and elbow intact, forward flexion of the shoulder to 120 degrees, abduction to 120 degrees, internal rotation to 90 degrees and external rotation to 80 degrees with endpoints limited by pain. Sensation intact to light touch throughout the LUE. Radial pulse 2+, capillary refill less than two seconds distally. Calves supple and nontender without erythema, edema or palpable cords Assessment: []POD 3 sp I&D left shoulder, Dr Zambrano Plan: []WBAT, work on shoulder ROM Daily dry sterile dressing change PT/OT ABX: oxacillin 2 g IV Q 4 hr. This can be given via continuous infusion at home x 1 month. Needs a weekly CBC, CMP, CRP while on this medication Remains afebrile, asymptomatic with improved shoulder ROM. CRP and WBC with mild increase today, plan to watch these values and if continue to rise Dr Angel will repeat I&D Wednesday. Vital Signs Temp 98.0 F 02/23/18 11:43 Pulse 64 02/23/18 11:43 Resp 17 02/23/18 11:43 BP 111/59 02/23/18 11:43 Pulse Ox 98 02/23/18 11:43 Intake & Output 02/22/18 02/23/18 02/23/18 18:59 06:59 18:59 Intake Total 957 220 Output Total 700 900 0 Balance 257 -680 0 Intake: IV Fluids 257 NS (0.9%) 37 oxacillin 220 Oral 700 220 Output: Urine 700 900 0 Other: # Bowel Movements 0 Laboratory Last Values WBC 13.5 10^3/ul (3.5-10.8) H 02/23/18 09:02 RBC 4.22 10^6/ul (4.00-5.40) 02/23/18 09:02 Hgb 11.8 g/dl (12.0-16.0) L 02/23/18 09:02 Hct 35 % (35-47) 02/23/18 09:02 MCV 84 fL (80-97) 02/23/18 09:02 MCH 28 pg (27-31) 02/23/18 09:02 MCHC 33 g/dl (31-36) 02/23/18 09:02 RDW 14 % (10.5-15) 02/23/18 09:02 Plt Count 303 10^3/ul (150-450) 02/23/18 09:02 MPV 6.6 fL (7.4-10.4) L 02/23/18 09:02 Neut % (Auto) Not Reportable 02/23/18 09:02 Lymph % (Auto) Not Reportable 02/23/18 09:02 [place] % (Auto) Not Reportable 02/23/18 09:02 Eos % (Auto) Not Reportable 02/23/18 09:02 Baso % (Auto) Not Reportable 02/23/18 09:02 Absolute Neuts (auto) 9.0 10^3/ul (1.5-7.7) H 02/23/18 09:02 Absolute Lymphs (auto) Not Reportable 02/23/18 09:02 Absolute Monos (auto) Not Reportable 02/23/18 09:02 Absolute Eos (auto) Not Reportable 02/23/18 09:02 Absolute Basos (auto) Not Reportable 02/23/18 09:02 Absolute Nucleated RBC Not Reportable 02/23/18 09:02 Neutrophils % 71 % 02/23/18 09:02 Lymphocytes % 25 % 02/23/18 09:02 Monocytes % 1 % 02/23/18 09:02 Eosinophils % 2 % 02/23/18 09:02 Basophils % 1 % 02/23/18 09:02 Nucleated RBC % Not Reportable 02/23/18 09:02 Abs Neuts (Manual) 9.6 10^3/ul (1.5-7.7) H 02/23/18 09:02 Abs Lymphs (Manual) 3.4 10^3/ul (1.0-4.8) 02/23/18 09:02 Abs Monocytes (Manual) 0.1 10^3/ul (0-0.8) 02/23/18 09:02 Absolute Eos (Manual) 0.3 10^3/ul (0-0.6) 02/23/18 09:02 Abs Basophils (Manual) 0.1 10^3/ul (0-0.2) 02/23/18 09:02 Normal RBC Morphology Normal (Normal) 02/23/18 09:02 INR (Anticoag Therapy) 0.94 (0.77-1.02) 02/22/18 20:05 APTT 28.7 seconds (26.0-36.3) 02/22/18 20:05 Sodium 138 mmol/L (135-145) 02/22/18 05:13 Potassium 4.0 mmol/L (3.5-5.0) 02/22/18 05:13 Chloride 103 mmol/L (101-111) 02/22/18 05:13 Carbon Dioxide 25 mmol/L (22-32) 02/22/18 05:13 Anion Gap 10 mmol/L (2-11) 02/22/18 05:13 BUN 13 mg/dL (6-24) 02/22/18 20:05 Creatinine 0.86 mg/dL (0.51-0.95) 02/22/18 20:05 Est GFR ( Amer) 88.0 (>60) 02/22/18 20:05 Est GFR (Non-Af Amer) 72.7 (>60) 02/22/18 20:05 BUN/Creatinine Ratio 17.3 (8-20) 02/22/18 05:13 Glucose 113 mg/dL (70-100) H 02/22/18 05:13 POC Glucose (mg/dL) 125 mg/dL (70-100) H 02/21/18 18:10 Calcium 9.3 mg/dL (8.6-10.3) 02/22/18 05:13 Total Bilirubin 0.40 mg/dL (0.2-1.0) 02/20/18 10:09 AST 21 U/L (13-39) 02/20/18 10:09 ALT 14 U/L (7-52) 02/20/18 10:09 Alkaline Phosphatase 78 U/L (34-104) 02/20/18 10:09 C-Reactive Protein 18.30 mg/L (<8.01) H 02/23/18 09:02 Total Protein 7.8 g/dL (6.4-8.9) 02/20/18 10:09 Albumin 4.0 g/dL (3.2-5.2) 02/20/18 10:09 Globulin 3.8 g/dL (2-4) 02/20/18 10:09 Albumin/Globulin Ratio 1.1 (1-3) 02/20/18 10:09 <Aranza Rayo - Last Filed: 02/23/18 13:42> - Progress Note SOAP: Subjective: Patient feels less painful. Objective: I examined the patient with Aranza. Her PROM, as listed above is improved and excellent for this point s/p 2 I&Ds. 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 Despite the patient's improved comfort, we might consider another I&D if the inflammatory labs continue to increase, as detailed in Aranza's note. <Antolin Angel - Last Filed: 02/24/18 08:11>
[2018-02-23] MEDS: Scopolamine 1.5 mg* PATCH TRANSDERM SCH (14:46)
[2018-02-24] MEDS: Ibuprofen TAB* 600 MG PO SCH ×5 (00:35→23:59)
[2018-02-24] MEDS: Oxacillin(*) 2 GM in NS 0.9% 100 ML* 100 ML IVPB SCH ×6 (02:50→22:01)
[2018-02-24] MEDS: Heparin VIAL(*) 5000 UNITS/ML VIAL (FIVE THOUSAND) SUBCUT SCH ×3 (06:10→22:03)
[2018-02-24 06:46] LABS: ABS Basophils 0.1 10^3/ul (0-0.2); ABS Eosinophils 0.2 10^3/ul (0-0.6); ABS Lymphocytes 2.7 10^3/ul (1.0-4.8); ABS Monocytes 0.8 10^3/ul (0-0.8); ABS Neutrophils 9.4 10^3/ul (1.5-7.7); ABS Nucleated RBC 0 10^3/ul; Eosinophil % 1.3 %; Hematocrit 34 % (35-47); Hemoglobin 11.2 g/dl (12.0-16.0); Lymphocyte % 20.8 %; Mean Corpuscular HGB Conc 33 g/dl (31-36); Mean Corpuscular Hemoglobin 28 pg (27-31); Mean Corpuscular Volume 85 fL (80-97); Mean Platelet Volume 6.8 fL (7.4-10.4); Nucleated Red Blood Cells % 0; Platelet Count 278 10^3/ul (150-450); Red Blood Count 3.95 10^6/ul (4.00-5.40); Red Cell Distribution Width 14 % (10.5-15); White Blood Count 13.2 10^3/ul (3.5-10.8)
[2018-02-24] MEDS: Ondansetron INJ* 2 MG/ML VIAL IV PRN (10:21)
[2018-02-24] MEDS: metFORMIN* 1,000 MG TAB PO SCH ×2 (10:21→19:39)
[2018-02-24] MEDS: Atorvastatin* 80 MG TAB PO SCH (10:22)
--- NOTE | 2018-02-24 16:08 | PN ---
Progress Note - Progress Note Date of Service: 02/24/18 SOAP: Subjective: []Patient seen and examined at bedside. She feels fatigued today with dizziness this morning which has resolved. Denies CP, SOB, dizziness, nausea. Objective: [] General: Well appearing, NAD L shoulder: Exam unchanged from yesterday. Dressing changed, incision is CDI with very minimal serosanguinous drainage on the dressing, no active discharge and no surrounding erythema. No erythema of the shoulder. F/E at the wrist and elbow intact, forward flexion of the shoulder to 120 degrees, abduction to 120 degrees, internal rotation to 90 degrees and external rotation to 80 degrees with endpoints limited by pain. Sensation intact to light touch throughout the LUE. Radial pulse 2+, capillary refill less than two seconds distally. Calves supple and nontender without erythema, edema or palpable cords Assessment: []POD 4 sp I&D left shoulder, Dr Zambrano Plan: []WBAT, work on shoulder ROM Daily dry sterile dressing change PT/OT ABX: oxacillin 2 g IV Q 4 hr. This can be given via continuous infusion at home x 1 month. Needs a weekly CBC, CMP, CRP while on this medication Remains afebrile, asymptomatic with improved shoulder ROM. MRI w contrast L shoulder today. Potential that if CRP and WBC continue to rise Dr Angel will repeat I&D Wednesday, eval necessity after MRI Vital Signs Temp 98.2 F 02/24/18 11:43 Pulse 61 02/24/18 11:43 Resp 16 02/24/18 11:43 BP 118/63 02/24/18 11:43 Pulse Ox 98 02/24/18 11:43 Intake & Output 02/23/18 02/24/18 02/24/18 18:59 06:59 18:59 Intake Total 240 950 470 Output Total 0 Balance 240 950 470 Intake: Oral 240 950 470 Output: Urine 0 Other: Estimated Void Medium Medium Medium Date of Last Bowel 02/24/18 Movement # Bowel Movements 1 Estimated Stool Amount Medium # Voids 1 1 2 Laboratory Last Values WBC 13.2 10^3/ul (3.5-10.8) H 02/24/18 06:25 RBC 3.95 10^6/ul (4.00-5.40) L 02/24/18 06:25 Hgb 11.2 g/dl (12.0-16.0) L 02/24/18 06:25 Hct 34 % (35-47) L 02/24/18 06:25 MCV 85 fL (80-97) 02/24/18 06:25 MCH 28 pg (27-31) 02/24/18 06:25 MCHC 33 g/dl (31-36) 02/24/18 06:25 RDW 14 % (10.5-15) 02/24/18 06:25 Plt Count 278 10^3/ul (150-450) 02/24/18 06:25 MPV 6.8 fL (7.4-10.4) L 02/24/18 06:25 Neut % (Auto) 71.0 % 02/24/18 06:25 Lymph % (Auto) 20.8 % 02/24/18 06:25 [place] % (Auto) 5.9 % 02/24/18 06:25 Eos % (Auto) 1.3 % 02/24/18 06:25 Baso % (Auto) 1.0 % 02/24/18 06:25 Absolute Neuts (auto) 9.4 10^3/ul (1.5-7.7) H 02/24/18 06:25 Absolute Lymphs (auto) 2.7 10^3/ul (1.0-4.8) 02/24/18 06:25 Absolute Monos (auto) 0.8 10^3/ul (0-0.8) 02/24/18 06:25 Absolute Eos (auto) 0.2 10^3/ul (0-0.6) 02/24/18 06:25 Absolute Basos (auto) 0.1 10^3/ul (0-0.2) 02/24/18 06:25 Absolute Nucleated RBC 0 10^3/ul 02/24/18 06:25 Neutrophils % 71 % 02/23/18 09:02 Lymphocytes % 25 % 02/23/18 09:02 Monocytes % 1 % 02/23/18 09:02 Eosinophils % 2 % 02/23/18 09:02 Basophils % 1 % 02/23/18 09:02 Nucleated RBC % 0 02/24/18 06:25 Abs Neuts (Manual) 9.6 10^3/ul (1.5-7.7) H 02/23/18 09:02 Abs Lymphs (Manual) 3.4 10^3/ul (1.0-4.8) 02/23/18 09:02 Abs Monocytes (Manual) 0.1 10^3/ul (0-0.8) 02/23/18 09:02 Absolute Eos (Manual) 0.3 10^3/ul (0-0.6) 02/23/18 09:02 Abs Basophils (Manual) 0.1 10^3/ul (0-0.2) 02/23/18 09:02 Normal RBC Morphology Normal (Normal) 02/23/18 09:02 Hem Pathologist Commnt 02/23/18 09:02 INR (Anticoag Therapy) 0.94 (0.77-1.02) 02/22/18 20:05 APTT 28.7 seconds (26.0-36.3) 02/22/18 20:05 Sodium 138 mmol/L (135-145) 02/22/18 05:13 Potassium 4.0 mmol/L (3.5-5.0) 02/22/18 05:13 Chloride 103 mmol/L (101-111) 02/22/18 05:13 Carbon Dioxide 25 mmol/L (22-32) 02/22/18 05:13 Anion Gap 10 mmol/L (2-11) 02/22/18 05:13 BUN 13 mg/dL (6-24) 02/22/18 20:05 Creatinine 0.86 mg/dL (0.51-0.95) 02/22/18 20:05 Est GFR ( Amer) 88.0 (>60) 02/22/18 20:05 Est GFR (Non-Af Amer) 72.7 (>60) 02/22/18 20:05 BUN/Creatinine Ratio 17.3 (8-20) 02/22/18 05:13 Glucose 113 mg/dL (70-100) H 02/22/18 05:13 POC Glucose (mg/dL) 125 mg/dL (70-100) H 02/21/18 18:10 Calcium 9.3 mg/dL (8.6-10.3) 02/22/18 05:13 Total Bilirubin 0.40 mg/dL (0.2-1.0) 02/20/18 10:09 AST 21 U/L (13-39) 02/20/18 10:09 ALT 14 U/L (7-52) 02/20/18 10:09 Alkaline Phosphatase 78 U/L (34-104) 02/20/18 10:09 C-Reactive Protein 25.07 mg/L (<8.01) H 02/24/18 06:25 Total Protein 7.8 g/dL (6.4-8.9) 02/20/18 10:09 Albumin 4.0 g/dL (3.2-5.2) 02/20/18 10:09 Globulin 3.8 g/dL (2-4) 02/20/18 10:09 Albumin/Globulin Ratio 1.1 (1-3) 02/20/18 10:09 <Aranza Rayo - Last Filed: 02/24/18 16:05> - Progress Note SOAP: Plan was to follow symptoms of pain, wound appearance, ROM shoulder, and labs to determine whether another I&D was required. Patient is worried about another recurrence of pain and swelling. <Antolin Angel - Last Filed: 02/26/18 10:38>
[2018-02-24] MEDS ORDERED: Gadoteridol* (CONTRAST) 279.3 MG/ML 10 ML IV ONE (17:40)
[2018-02-25] MEDS: Oxacillin(*) 2 GM in NS 0.9% 100 ML* 100 ML IVPB SCH ×7 (02:05→23:14)
[2018-02-25 05:36] LABS: ABS Basophils 0.2 10^3/ul (0-0.2); ABS Eosinophils 0.2 10^3/ul (0-0.6); ABS Lymphocytes 3.2 10^3/ul (1.0-4.8); ABS Monocytes 0.7 10^3/ul (0-0.8); ABS Neutrophils 8.8 10^3/ul (1.5-7.7); ABS Nucleated RBC 0 10^3/ul; Eosinophil % 1.7 %; Hematocrit 33 % (35-47); Hemoglobin 10.9 g/dl (12.0-16.0); Lymphocyte % 24.9 %; Mean Corpuscular HGB Conc 33 g/dl (31-36); Mean Corpuscular Hemoglobin 28 pg (27-31); Mean Corpuscular Volume 85 fL (80-97); Mean Platelet Volume 6.6 fL (7.4-10.4); Nucleated Red Blood Cells % 0; Platelet Count 241 10^3/ul (150-450); Red Blood Count 3.87 10^6/ul (4.00-5.40); Red Cell Distribution Width 14 % (10.5-15); White Blood Count 13.1 10^3/ul (3.5-10.8)
[2018-02-25] MEDS: Ibuprofen TAB* 600 MG PO SCH ×4 (06:02→23:17)
[2018-02-25] MEDS: Scopolamine 1.5 mg* PATCH TRANSDERM SCH (08:10)
--- NOTE | 2018-02-25 10:11 | PN ---
Progress Note - Progress Note Date of Service: 02/25/18 SOAP: Subjective: CC: shoulder infection HPI: 42 year old woman with left distal clavicle osteomyelitis and abscess s/p another I&D. No fever, rash, or diarrhea. ROM improving and rest pain much better. Objective: Vital Signs Temp 36.9 C 02/25/18 04:22 Pulse 68 02/25/18 07:53 Resp 16 02/25/18 07:53 BP 125/65 02/25/18 09:24 Pulse Ox 97 02/25/18 07:53 Intake & Output 02/24/18 02/25/18 02/25/18 18:59 06:59 18:59 Intake Total 470 660 120 Output Total 0 Balance 470 660 120 Weight 220 lb Intake: IVPB 300 120 oxacillin 300 120 Oral 470 360 Output: Urine 0 Other: Estimated Void Medium Medium # Bowel Movements 0 # Voids 2 1 Gen:awake, no distress HEENT: no thrush Heart:RRR no murmur Lungs:CTA BL Abd:+BS NTND soft Skin: no rash MSK: Left shoulder decr flex/extension; incision intact no fluctuance Laboratory Results - last 24 hr 02/25/18 02/25/18 05:27 05:27 WBC 13.1 H RBC 3.87 L Hgb 10.9 L Hct 33 L MCV 85 MCH 28 MCHC 33 RDW 14 Plt Count 241 MPV 6.6 L Neut % (Auto) 67.2 Lymph % (Auto) 24.9 [place] % (Auto) 5.0 Eos % (Auto) 1.7 Baso % (Auto) 1.2 Absolute Neuts (auto) 8.8 H Absolute Lymphs (auto) 3.2 Absolute Monos (auto) 0.7 Absolute Eos (auto) 0.2 Absolute Basos (auto) 0.2 Absolute Nucleated RBC 0 Nucleated RBC % 0 C-Reactive Protein 32.29 H MRI: no GH effusion Assessment: 1. left clavicle osteomyelitis, acute, due to MSSA with SQ abscess s/p I&D; improving 2. CRP incr; lagging her overall recovery Plan: 1. continue oxacillin 2 gm IV Q4hrs; I think that as she improves each day the increasing CRP is not worrisome. Call in to Dr Miranda.
--- NOTE | 2018-02-25 12:46 | PN ---
Progress Note - Progress Note Date of Service: 02/25/18 SOAP: Subjective: []Patient seen at bedside with Dr. Guzman this morning. Despite increase in CRP she is feeling much better in terms of pain and motion in the left shoulder. MRI has failed to show new fluid collection or abscess. Dr. Guzman feels we can hold on repeat I&D of left shoulder. He states he will contact Dr. Angel to discuss. Objective: [] Vital Signs Temp 98.4 F 02/25/18 04:22 Pulse 68 02/25/18 07:53 Resp 16 02/25/18 08:00 BP 125/65 02/25/18 09:24 Pulse Ox 97 02/25/18 07:53 Intake & Output 02/24/18 02/25/18 02/25/18 18:59 06:59 18:59 Intake Total 470 660 303 Output Total 0 Balance 470 660 303 Weight 220 lb Intake: IV Fluids 60 NS (0.9%) 60 IVPB 300 243 oxacillin 300 243 Oral 470 360 Output: Urine 0 Other: Estimated Void Medium Medium Medium # Bowel Movements 0 # Voids 2 1 1 Laboratory Results - last 24 hr 02/25/18 02/25/18 05:27 05:27 WBC 13.1 H RBC 3.87 L Hgb 10.9 L Hct 33 L MCV 85 MCH 28 MCHC 33 RDW 14 Plt Count 241 MPV 6.6 L Neut % (Auto) 67.2 Lymph % (Auto) 24.9 [place] % (Auto) 5.0 Eos % (Auto) 1.7 Baso % (Auto) 1.2 Absolute Neuts (auto) 8.8 H Absolute Lymphs (auto) 3.2 Absolute Monos (auto) 0.7 Absolute Eos (auto) 0.2 Absolute Basos (auto) 0.2 Absolute Nucleated RBC 0 Nucleated RBC % 0 C-Reactive Protein 32.29 H Microbiology 02/20/18 18:47 Skin and Soft Tissue MRSA/MSSA (PCR - Final Shoulder Left Mrsa Negative S.aureus Positive Gram Stain - Final Wound Culture - Final No Growth Day 4 02/20/18 18:47 Anaerobic Culture - Final Wound - Shoulder Left No Growth Day 4 No significant edema, no erythema or warmth left shoulder mild ttp diffusely Left shoulder motion actively to 100 degrees abduction with mild pain- feels her motion continues to improve. Dry dressing on anterior shoulder, remainder of portals well healed sensation and circulation intact distally Assessment: []Osteomyelitis left distal clavicle s/p I&D left shoulder Plan: []Patient remains NPO for possible repeat I&D with Dr. Angel today Patient aware that determination for need of surgery to be determined this afternoon by Dr. Angel Continue IV Oxacillin 2g IV q4hrs
[2018-02-25] MEDS: metFORMIN* 1,000 MG TAB PO SCH ×2 (14:56→21:39)
[2018-02-25] MEDS: Atorvastatin* 80 MG TAB PO SCH (14:56)
[2018-02-25] MEDS ORDERED: Bupivacaine 0.5% W/EPI SDV* 30 ML VIAL ONE (18:15)
[2018-02-25] MEDS ORDERED: Lidocaine 1% INJ* 10 MG/ML 30 ML SDV ONE (18:15)
[2018-02-25] MEDS ORDERED: EPINEPHRINE 1 MG/ML 1 ML VIAL ONE (18:15)
[2018-02-25] MEDS ORDERED: KETAMINE HCL* 50 MG/ML 10 ML VIAL ONE (18:31)
[2018-02-25] MEDS ORDERED: Midazolam* 1 MG/ML 5 ML VIAL (5 MG) ONE (18:31)
[2018-02-25] MEDS ORDERED: fentaNYL* 50 MCG/ML 2 ML VIAL (100 MCG VIAL) ONE ×2 (18:31→20:32)
[2018-02-25] MEDS ORDERED: Lidocaine 2% PF * 5 ML VIAL ONE (19:25)
[2018-02-25] MEDS ORDERED: Propofol* 10 MG/ML 20 ML BTL ONE (19:25)
[2018-02-25] MEDS ORDERED: Morphine VIAL* 10 MG/ML 1 ML VIAL ONE (19:26)
[2018-02-25] MEDS ORDERED: Naloxone* 0.4 MG/ML 1 ML VIAL IV PRN (20:27)
[2018-02-25] MEDS ORDERED: oxyCODONE/Acetamin 5/325 MG* TAB PO PRN (20:27)
[2018-02-25] MEDS ORDERED: Morphine VIAL* 4 MG/ML VIAL (1 ml vial) IV PRN (20:27)
[2018-02-25] MEDS ORDERED: PROCHLORPERAZINE INJ 5 MG/ML 2 ML VIAL IV PRN (20:27)
[2018-02-25] MEDS ORDERED: DiMENhydriNATE IV* 50 MG/ML VIAL IV PUSH PRN (20:27)
[2018-02-25] MEDS: fentaNYL* 50 MCG/ML 2 ML VIAL (100 MCG VIAL) IV PRN ×2 (20:46→21:10)
[2018-02-25] MEDS: HYDROcodone/ACETAMIN 5-325 MG* 1 TAB PO PRN (21:39)
[2018-02-26] MEDS: Oxacillin(*) 2 GM in NS 0.9% 100 ML* 100 ML IVPB SCH ×6 (01:58→21:56)
[2018-02-26] MEDS: HYDROcodone/ACETAMIN 5-325 MG* 1 TAB PO PRN ×3 (01:59→10:07)
[2018-02-26] MEDS: Ibuprofen TAB* 600 MG PO SCH ×3 (06:25→18:13)
[2018-02-26] MEDS: Atorvastatin* 80 MG TAB PO SCH (10:08)
[2018-02-26] MEDS: metFORMIN* 1,000 MG TAB PO SCH ×2 (10:08→21:54)
[2018-02-26] MEDS ORDERED: Scopolamine PATCH Remove* 1 NOTE MISC PATCH OFF SCH (14:00)
[2018-02-26] MEDS: Scopolamine 1.5 mg* PATCH TRANSDERM SCH (14:03)
--- NOTE | 2018-02-26 14:36 | PN ---
Progress Note - Progress Note Date of Service: 02/26/18 SOAP: Subjective: Pain is minimal when not moving left shoulder. Objective: LUE: - dressing in place and clean, dry, and intact from the outside - NVID Microbiology 02/25/18 20:00 Shoulder Left Gram Stain - Final 02/25/18 19:50 Shoulder Left Gram Stain - Final 02/25/18 20:00 Wound Anaerobic Culture - Preliminary No Growth Day 1 02/25/18 20:00 Shoulder Left Wound Culture - Preliminary No Growth Day 1 02/25/18 19:50 Wound Anaerobic Culture - Preliminary No Growth Day 1 Selected Entries 02/26/18 02/26/18 02/26/18 04:03 07:20 11:24 Temperature 98.0 F 98.0 F 97.4 F Pulse Rate 68 Respiratory 18 Rate Blood Pressure 134/75 (mmHg) O2 Sat by Pulse 95 Oximetry Assessment: POD 1 s/p 3rd I&D L shoulder, open & arthroscopic for MSSA AC joint & subQ infection and likely distal clavicle osteomyelitis Plan: - Continue IV antibiotics - Patient may be discharged to home on IV antibiotics as soon as services can be arranged for IV abx at home through PICC line. (I learned that services can' t be provided over the weekend secondary to inclement weather) - While here, activity as tolerated. Though we will hold off on PT until infection more definitively cleared. - If still in hospital on 02/28/18, we will get labs to use as a baseline - Plan for follow up ~ 1 week from discharge with me and Dr. Guzman in clinic - Dressing with be changed and Nita drains pulled on 02/27/18
[2018-02-27] MEDS: Ibuprofen TAB* 600 MG PO SCH ×4 (00:39→17:26)
[2018-02-27] MEDS: Oxacillin(*) 2 GM in NS 0.9% 100 ML* 100 ML IVPB SCH ×6 (02:32→21:32)
[2018-02-27] MEDS: Atorvastatin* 80 MG TAB PO SCH (09:08)
[2018-02-27] MEDS: metFORMIN* 1,000 MG TAB PO SCH ×2 (09:08→21:30)
--- NOTE | 2018-02-27 10:02 | PN ---
Progress Note - Progress Note Date of Service: 02/27/18 SOAP: Subjective: [Minimal co of L shoulder pain] Objective: [A and o x 3, NAD L shoulder dressing changed, michele x 2 pulled. Gauze was soaked through with dried blood. Posterior drain, wound with mild purulent drainage. Anterior drain with bloody drainage, No erythema. nvi RUE. Vital Signs: Temp Pulse Resp BP Pulse Ox 98.3 F 65 16 130/64 100 02/27/18 07:43 02/27/18 07:43 02/27/18 08:00 02/27/18 07:43 02/27/18 08:00 Laboratory Results - last 24 hr 02/26/18 10:14 POC Glucose (mg/dL) 130 H ] Assessment: [POD #2 s/p 3rd I and D L shld, open and arthroscopic for MSSA AC joint and subQ infxn likely distal clavicle osteomyelitis] Plan: [Con't IV abx D/C home tomorrow with IV abx thru PICC OOB ad jimmie, activity as samantha. No PT until infxn more definitively cleared Labs ordered F/U 1 week from D/C with Dr. Angel and Dr. Guzman]
[2018-02-27] MEDS ORDERED: HYDROcodone/ACETAMIN 5-325 MG* 1 TAB PO PRN ×2 (13:31)
[2018-02-28] MEDS: Ibuprofen TAB* 600 MG PO SCH ×3 (00:08→13:07)
--- NOTE | 2018-02-28 00:15 | OP ---
DATE OF OPERATION: 02/25/18 - ROOM #351 DATE OF : 77 SURGEON: Dr. Antolin Angel. REFERRAL MANAGER: JOLIE Upton. A physician recruitment assistant was required for the length of the procedure for assistance with positioning, instrumentation, and closure. ANESTHESIOLOGIST: Dr. Logan Lam. ANESTHESIA: General anesthesia. PRE-OP DIAGNOSES: 1. Left shoulder acromioclavicular (AC) joint infection. 2. Left shoulder subcutaneous abscess. 3. Possible osteomyelitis, left shoulder distal clavicle. 4. Status post 2 prior irrigation and debridement procedures, by myself on and Dr. Zambrano on 02/20/18. POST-OP DIAGNOSES: 1. Left shoulder acromioclavicular (AC) joint infection. 2. Left shoulder subcutaneous abscess. 3. Possible osteomyelitis, left shoulder distal clavicle. 4. Status post 2 prior irrigation and debridement procedures, by myself on and Dr. Zambrano on 02/20/18. OPERATIVE PROCEDURES: 1. Left shoulder arthroscopic irrigation and debridement, subacromial space and acromioclavicular joint. 2. Left shoulder distal clavicle resection, arthroscopic. 3. Left shoulder open irrigation and debridement and placement of drains. IV FLUIDS: See anesthesia note. ANTIBIOTICS: Oxacillin 2 g, scheduled dose provided perioperatively. SPECIMENS: Two sets of culture swabs, one with fluid from subacromial space, the other from the opened superior subcutaneous wound. IMPLANTS: Two quarter-inch Nita drains were placed. One was placed from the anterior aspect of the saber superior incision. The other was placed out the posterior arthroscopic skin incision, from the subacromial space. COMPLICATIONS: None. [id number] TIME: 28 minutes. FLUID UTILIZED: I used a total of 6 bags, each with 3 L for a total of 18 L for the arthroscopic and open components of the case, together. INDICATIONS FOR PROCEDURE: The patient is a 42-year-old woman with poorly controlled diabetes mellitus who presented to the emergency room on 02/05/18 with 1 week of pain and then swelling about the left shoulder. ER had ordered a CT scan of the chest, which showed a likely abscess in the subcutaneous tissue. After identifying and draining some pus from the superior shoulder in the emergency department, I ordered an MRI of the left shoulder, which indicated a likely AC joint infection, possible distal clavicle osteomyelitis, and confluence of the subcutaneous infection with the AC joint. On 02/06/18, I performed a thorough incision, irrigation, debridement, and drainage of the left shoulder glenohumeral joint, AC joint, and subcutaneous space superiorly. The glenohumeral joint arthroscopically looked totally normal and was Gram stain and culture negative for organisms. Subacromially, I debrided some bursitis and then at the AC joint I encountered infected fluid. I irrigated the subacromial space with a significant volume of fluid, I performed a distal clavicle resection, removing some bone additionally with an arthroscopic mitchel from the end of the acromion. I then made a saber incision and irrigated from above the subcutaneous tissue very well. Postoperatively, an ID consult was obtained. We had the patient on Ancef antibiotics, which were appropriate to her culture sensitivities. The patient' s pain, range of motion, body temperature, and inflammatory markers favored a discharge home and Dr. Guzman and I agreed that that was appropriate. I saw the patient in the office on 02/15/18. She was doing well. Several days later, however, the patient re-developed pain about the left shoulder. She presented to the emergency room and then on 02/20/18 underwent a repeat I and D by my partner, Dr. Zambrano. This was done open through the prior saber incision. Dr. Zambrano again used a very high quantity of fluid. Preoperatively, she obtained an abscess, which showed a large fluid collection about the anterosuperior shoulder. Dr. Zambrano left drains, as I had after the first procedure. The patient stayed admitted postoperatively. Dr. Guzman was reconsulted and switched her from Ancef to oxacillin. The patient was afebrile. She felt that her pain improved, but only slightly. The patient was concerned about going home and requiring another irrigation and debridement. Her pain had not significantly improved. The CRP levels, while only marginally elevated, were increasing daily by small increments. The wound was still draining what appeared to be slightly infected, purulent material, not normal serosanguineous fluid. Therefore, we decided to proceed forward with an additional, third washout. DESCRIPTION OF PROCEDURE: In preoperative holding, the patient signed a written consent. Operative extremity was marked in preoperative holding. The patient was taken back to the operating room and placed supine on the operating room table. Sedated and intubated. The patient was converted to the lateral decubitus position. Beanbag hardened. Axillary roll placed. All bony prominences padded. Left shoulder was placed in longitudinal traction with the appropriate amount of forward flexion and abduction. The left shoulder was prepped and draped. Surgical time-out was performed. I made a posterior arthroscopic skin incision where the scar from my prior surgery was located. I moved directly to the subacromial space. I established anterior and then lateral portals through the prior skin incision scars. With an arthroscopic shaver, I debrided some bursitis and flooded the subacromial space with fluid. I used at least 4 bags or 12 L of fluid in the subacromial and AC joints, arthroscopically. Using an arthroscopic mitchel, I debrided a small amount of additional bone off of the ends of both the distal clavicle and the acromial side of the AC joint. I next removed stitches from the saber incision. I removed the stitches and did not use again the scissors used to remove them. I then used irrigation and irrigated with another approximately 2 bags of fluid through this saber incision. No pockets of pus were encountered during this case, although when I went to start the case there was some of that purulent-type drainage on the dressing that was removed prior to prep and drape. I placed 2 Nita drains. One was out the posterior subacromial skin incision. The other was out the anterior most aspect of the superior saber incision. These were both quarter inch in size. We closed the arthroscopic skin incisions with simple stitches with nylon 4.0 suture. The saber incision was closed with several simple stitches using nylon 3.0 suture. Dressing consisted of 4x4's, ABDs, foam tape. The patient was awakened, extubated, and taken to the PACU. DISPOSITION: The patient was to be continued on oxacillin postoperatively. The plan was for the Nita drains to be removed on postoperative day 1 or 2. The patient was to be discharged home as soon as it could be arranged for her to receive antibiotics at home. She was to follow up with myself and Dr. Guzman approximately 1 week after discharge from hospital. [id number]/[facility] #: [id number] [facility]ARE SYSTEMChristine
[2018-02-28] MEDS: Oxacillin(*) 2 GM in NS 0.9% 100 ML* 100 ML IVPB SCH ×4 (02:09→14:18)
[2018-02-28 05:42] LABS: ABS Basophils 0.1 10^3/ul (0-0.2); ABS Eosinophils 0.3 10^3/ul (0-0.6); ABS Lymphocytes 3.2 10^3/ul (1.0-4.8); ABS Monocytes 0.8 10^3/ul (0-0.8); ABS Neutrophils 8.8 10^3/ul (1.5-7.7); ABS Nucleated RBC 0 10^3/ul; Eosinophil % 2.1 %; Hematocrit 31 % (35-47); Hemoglobin 10.4 g/dl (12.0-16.0); Lymphocyte % 24.1 %; Mean Corpuscular HGB Conc 33 g/dl (31-36); Mean Corpuscular Hemoglobin 28 pg (27-31); Mean Corpuscular Volume 84 fL (80-97); Mean Platelet Volume 6.8 fL (7.4-10.4); Nucleated Red Blood Cells % 0; Platelet Count 186 10^3/ul (150-450); Red Blood Count 3.72 10^6/ul (4.00-5.40); Red Cell Distribution Width 15 % (10.5-15); White Blood Count 13.1 10^3/ul (3.5-10.8)
[2018-02-28 06:44] LABS: Erythrocyte Sed Rate 75 mm/Hr (0-14)
[2018-02-28] MEDS: metFORMIN* 1,000 MG TAB PO SCH (08:54)
[2018-02-28] MEDS: Atorvastatin* 80 MG TAB PO SCH (08:54)
--- NOTE | 2018-02-28 11:09 | PN ---
Progress Note - Progress Note Date of Service: 02/28/18 SOAP: Subjective: []Patient seen and examined at bedside. She is feeling well and desires DC home. Her left shoulder pain is reduced from yesterday. Denies CP, SOB, dizziness, nausea. Objective: []General: Well appearing, NAD LUE: Dressing changed. Gauze is with mild serosanguinous drainage, no purulence. Incisions are CDI without any surrounding erythema and no active discharge. Shoulder is nontender to gentle palpation. Forward flexion and abduction to 90 degrees, endpoint limited by pain. Nonrestricted nonpainful ROM of elbow, wrist and digits. Sensation intact to light touch throughout LUE and digits. Capillary refill less than two seconds distally, radial pulse 2+. Assessment: []POD #3 s/p 3rd I and D L shoulder, open and arthroscopic for MSSA AC joint and subQ infxn likely distal clavicle osteomyelitis] Plan: [Con't IV abx oxacillin 2 g IV Q 4 hr D/C home as soon as abx set up for home Daily dry sterile dressing change. OOB ad jimmie, activity as samantha. No PT until infxn more definitively cleared F/U 1 week from D/C with Dr. Angel and Dr. Guzman Vital Signs Temp 98.1 F 02/28/18 11:15 Pulse 64 02/28/18 11:15 Resp 17 02/28/18 11:15 BP 133/68 02/28/18 11:15 Pulse Ox 98 02/28/18 11:15 Intake & Output 02/27/18 02/28/18 02/28/18 18:59 06:59 18:59 Intake Total 780 1300 Output Total 0 0 500 Balance 780 1300 -500 Intake: IV Fluids 320 150 NS (0.9%) 60 20 oxacillin 260 130 Oral 460 1150 Output: Urine 0 0 500 Other: Estimated Void Large Large # Bowel Movements 1 Estimated Stool Amount Small # Voids 2 2 Laboratory Last Values WBC 13.1 10^3/ul (3.5-10.8) H 02/28/18 05:29 RBC 3.72 10^6/ul (4.00-5.40) L 02/28/18 05:29 Hgb 10.4 g/dl (12.0-16.0) L 02/28/18 05:29 Hct 31 % (35-47) L 02/28/18 05:29 MCV 84 fL (80-97) 02/28/18 05:29 MCH 28 pg (27-31) 02/28/18 05:29 MCHC 33 g/dl (31-36) 02/28/18 05:29 RDW 15 % (10.5-15) 02/28/18 05:29 Plt Count 186 10^3/ul (150-450) 02/28/18 05:29 MPV 6.8 fL (7.4-10.4) L 02/28/18 05:29 Neut % (Auto) 66.9 % 02/28/18 05:29 Lymph % (Auto) 24.1 % 02/28/18 05:29 [place] % (Auto) 5.9 % 02/28/18 05:29 Eos % (Auto) 2.1 % 02/28/18 05:29 Baso % (Auto) 1.0 % 02/28/18 05:29 Absolute Neuts (auto) 8.8 10^3/ul (1.5-7.7) H 02/28/18 05:29 Absolute Lymphs (auto) 3.2 10^3/ul (1.0-4.8) 02/28/18 05:29 Absolute Monos (auto) 0.8 10^3/ul (0-0.8) 02/28/18 05:29 Absolute Eos (auto) 0.3 10^3/ul (0-0.6) 02/28/18 05:29 Absolute Basos (auto) 0.1 10^3/ul (0-0.2) 02/28/18 05:29 Absolute Nucleated RBC 0 10^3/ul 02/28/18 05:29 Neutrophils % 71 % 02/23/18 09:02 Lymphocytes % 25 % 02/23/18 09:02 Monocytes % 1 % 02/23/18 09:02 Eosinophils % 2 % 02/23/18 09:02 Basophils % 1 % 02/23/18 09:02 Nucleated RBC % 0 02/28/18 05:29 Abs Neuts (Manual) 9.6 10^3/ul (1.5-7.7) H 02/23/18 09:02 Abs Lymphs (Manual) 3.4 10^3/ul (1.0-4.8) 02/23/18 09:02 Abs Monocytes (Manual) 0.1 10^3/ul (0-0.8) 02/23/18 09:02 Absolute Eos (Manual) 0.3 10^3/ul (0-0.6) 02/23/18 09:02 Abs Basophils (Manual) 0.1 10^3/ul (0-0.2) 02/23/18 09:02 Normal RBC Morphology Normal (Normal) 02/23/18 09:02 ESR 75 mm/Hr (0-14) H 02/28/18 05:29 Hem Pathologist Commnt 02/23/18 09:02 INR (Anticoag Therapy) 0.94 (0.77-1.02) 02/22/18 20:05 APTT 28.7 seconds (26.0-36.3) 02/22/18 20:05 Sodium 138 mmol/L (135-145) 02/22/18 05:13 Potassium 4.0 mmol/L (3.5-5.0) 02/22/18 05:13 Chloride 103 mmol/L (101-111) 02/22/18 05:13 Carbon Dioxide 25 mmol/L (22-32) 02/22/18 05:13 Anion Gap 10 mmol/L (2-11) 02/22/18 05:13 BUN 13 mg/dL (6-24) 02/22/18 20:05 Creatinine 0.86 mg/dL (0.51-0.95) 02/22/18 20:05 Est GFR ( Amer) 88.0 (>60) 02/22/18 20:05 Est GFR (Non-Af Amer) 72.7 (>60) 02/22/18 20:05 BUN/Creatinine Ratio 17.3 (8-20) 02/22/18 05:13 Glucose 113 mg/dL (70-100) H 02/22/18 05:13 POC Glucose (mg/dL) 130 mg/dL (70-100) H 02/26/18 10:14 Calcium 9.3 mg/dL (8.6-10.3) 02/22/18 05:13 Total Bilirubin 0.40 mg/dL (0.2-1.0) 02/20/18 10:09 AST 21 U/L (13-39) 02/20/18 10:09 ALT 14 U/L (7-52) 02/20/18 10:09 Alkaline Phosphatase 78 U/L (34-104) 02/20/18 10:09 C-Reactive Protein 64.32 mg/L (<8.01) H 02/28/18 05:29 Total Protein 7.8 g/dL (6.4-8.9) 02/20/18 10:09 Albumin 4.0 g/dL (3.2-5.2) 02/20/18 10:09 Globulin 3.8 g/dL (2-4) 02/20/18 10:09 Albumin/Globulin Ratio 1.1 (1-3) 02/20/18 10:09
[2018-02-28 11:41] VITALS: BP 133/68
== END 2018-02-28 15:40 | disposition home or self-care (01) | DRG 364 ==
LOC: ED 10:37 → SSU 15:11 → OBSVTOIN 02-21 10:30 → SSU 02-23 10:18
PROVIDERS: ADMIT Orthopaedic Surgery; ATTEND Orthopaedic Surgery
PROC: 0R9K00Z Drainage of Left Shoulder Joint with Drainage Device, Open Approach (ICD-10-PCS; principal; 2018-02-20 19:00)
PROC: 0RBH0ZZ Excision of Left Acromioclavicular Joint, Open Approach (ICD-10-PCS; 2018-02-25)
PROC: 0PBB0ZZ Excision of Left Clavicle, Open Approach (ICD-10-PCS; 2018-02-25)
DX: L02.414 Cutaneous abscess of left upper limb (principal); M00.012 Staphylococcal arthritis, left shoulder; M86.8X1 Other osteomyelitis, shoulder; E11.9 Type 2 diabetes mellitus without complications; E78.5 Hyperlipidemia, unspecified; E66.9 Obesity, unspecified; B95.61 Methicillin susceptible Staphylococcus aureus infection as the cause of diseases classified elsewhere; M75.52 Bursitis of left shoulder; E11.69 Type 2 diabetes mellitus with other specified complication; E11.65 Type 2 diabetes mellitus with hyperglycemia; Z68.36 Body mass index [BMI] 36.0-36.9, adult; Z98.51 Tubal ligation status; Z82.49 Family history of ischemic heart disease and other diseases of the circulatory system; Z83.3 Family history of diabetes mellitus; Z72.89 Other problems related to lifestyle
CPT/HCPCS: 36415; 80048; 80053; 82565; 84520; 85025; 85060; 85610; 85652; 85730; 86140; 87070; 87073; 87205; 87640; 87641; 99283; A9270-GY; A9579; J0330; J0690; J1100; J1644; J1885; J2250; J2270; J2405; J2700; J2704; J3010

== ENCOUNTER 2018-09-13 15:24 | Emergency (ER) | payer BC ==
--- OUTSIDE RECORDS SUMMARY | 2018-09-13 15:31 | XMS REPORT | Continuity of Care Document ---
:1975 External Reference #:[id number] Author Name Mitzy Landin M.D. 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 Onset: 08/25/2018 Female stress incontinence Mitzy Landin M.D. 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 ETOH Use Occasionally consumes alcohol Tobacco Use Start: Unknown Patient denies history of smoking Recreational Drug Use Denies Drug Use Smoking Status Reviewed: 08/16/18 Patient denies history of smoking Allergies, Adverse Reactions, Alerts Active Allergies Reaction Severity Comments Date Imitrex 08/25/2018 Medications Active Medications SIG Qnty Indications Ordering Provider Date Metformin HCL take one tablet Unknown 500mg by mouth per day Tablets per patient Atorvastatin Calcium Pt states she is Unknown 20mg unsure how many Tablets mg she takes per day Vital Signs Date Vital Result Comment 08/25/2018 9:51am BP Systolic Sitting Right Arm 116 mmHg BP Diastolic Sitting Right Arm 75 mmHg Body Temperature 97.6 F Heart Rate 70 /min Respiratory Rate 18 /min Height 65 inches 5'5" per patient Weight 248.00 lb BMI (Body Mass Index) 41.3 kg/m2 BSA (Body Surface Area) 2.17 m2 [place] body weight in kilograms 57 kg O2 % BldC Oximetry 94 % Results Test Date Facility Test Result H/L Range Note Urine Dipstick 08/25/2018 [facility]a Color Yellow Yellow Ua Clarity Clear Clear Ua Leuko Neg Negative Ua Nitrite Neg Negative Ua Urobilinogen 0.2 0.2 - 1.0 E.U./dL Ua Protein Neg Negative Ua PH 6.0 Low 6.5-7.5 Ua Blood Neg Negative Ua Specific [place] 1.010 1.010-1.030 Ua Ketones Neg Negative Ua Bilirubin Neg Negative Ua Glucose Neg Negative Encounters Type Date Location Provider Dx Diagnosis Office Visit 08/25/2018 Urology Mitzy Landin, N39.3 Stress incontinence 9:45a M.D. (female) (male) Plan of Treatment Future Appointment(s):10/20/2018 2:45 pm - Mitzy Landin M.D. at [id number] - Mitzy Landin M.D.N39.3 Stress incontinence (female) (male)Comments :Patient with symptoms consistent with stress incontinence. Discussed today behavioral modificationsincluding voiding every 2-3 hours, also recommended she does pelvic floor physical therapy which sheis agreeable to. Also discussed trying to lose weight. I'll reassess the patient in 8 weeks and ifthere is no improvement we did discuss surgical intervention which we will revisit after doing a pelvic exam.
--- OUTSIDE RECORDS SUMMARY | 2018-09-13 15:31 | XMS REPORT | Continuity of Care Document ---
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 ETOH Use Denies alcohol use Tobacco Use Start: Unknown Patient has never smoked Smoking Status Reviewed: 08/24/18 Patient has never smoked Exercise Type/Frequency Exercises sporadically Allergies, Adverse Reactions, Alerts Active Allergies Reaction Severity Comments Date Imitrex sweats, SOB 03/04/2018 Medications Active Medications SIG Qnty Indications Ordering Provider Date Tramadol HCL 1 - 2 tablet by 20tabs [facility] 06/15/2018 50mg Tablets mouth as needed MD Jeanne daily Naproxen take one tab by 90tabs Antolin 03/24/2018 500mg Tablets mouth twice a MD Jeanne day with food Metformin HCL 1 tab every 12 30tabs [facility] 02/10/2018 1000mg hours. Follow up MD Jeanne Tablets with PCP for refill Tylenol 2 tablets every Unknown 325mg Capsules 4 hours as needed for pain Atorvastatin Calcium Wilian River PA 80mg Tablets History Medications Cephalexin 1 by mouth three 42tabs M86.112 [facility] 04/06/2018 - 500mg times a day Thais Brown 04/25/2018 Tablets [place] 1 tab by mouth q6 30tabs [facility] 03/24/2018 - 5-325mg hours as needed MD Jeanne 08/23/2018 Tablets pain Oxacillin 2gm IV q 4 hrs Unknown 02/28/2018 - 2gm continuous infusion 04/13/2018 through [facility] Aspirin 1 tab every 12 20tabs [facility] 02/10/2018 - 325mg hours for 10 days MD Jeanne 03/03/2018 Tablets Oxycodone HCL 1 tab every 4-6 30tabs [facility] 02/10/2018 - 5mg hours as needed for MD Jeanne 04/07/2018 Tablets pain mdd 6 Docusate Sodium 1 tab every 12 90caps [facility] 02/10/2018 - hours as needed for MD Jeanne 08/23/2018 100mg Capsules constipation Cefazolin Sodium 6gm IV q 24 hrs Unknown - through [facility] home 03/01/2018 2GM/20ML Soln infusion Prefill Syringe Vital Signs Date Vital Result Comment 08/24/2018 2:52pm Height 65 inches 5'5" Weight 221.00 lb stated Heart Rate 70 /min BP Systolic 132 mmHg BP Diastolic 78 mmHg Respiratory Rate 12 /min Pain Level 0 BMI (Body Mass Index) 36.8 kg/m2 06/21/2018 9:06am Height 65 inches 5'5" Weight 228.38 lb Heart Rate 72 /min BP Systolic Sitting 120 mmHg BP Diastolic Sitting 88 mmHg Respiratory Rate 14 /min Body Temperature 98.6 F BMI (Body Mass Index) 38.0 kg/m2 06/15/2018 3:54pm Height 65 inches 5'5" Heart Rate 74 /min BP Systolic 124 mmHg BP Diastolic 76 mmHg Respiratory Rate 18 /min Body Temperature 98.0 F Pain Level 3 05/24/2018 1:07pm Height 65 inches 5'5" Weight 222.00 lb Heart Rate 76 /min Body Temperature 98.5 F O2 % BldC Oximetry 98 % BMI (Body Mass Index) 36.9 kg/m2 05/13/2018 8:50am Height 65 inches 5'5" Weight 229.38 lb Heart Rate 72 /min BP Systolic Sitting 124 mmHg BP Diastolic Sitting 84 mmHg Respiratory Rate 14 /min Body Temperature 98.9 F Pain Level 5 BMI (Body Mass Index) 38.2 kg/m2 04/20/2018 9:21am Height 65 inches 5'5" Weight 228.00 lb Heart Rate 72 /min BP Systolic Sitting 118 mmHg BP Diastolic Sitting 84 mmHg Respiratory Rate 14 /min Body Temperature 98.1 F BMI (Body Mass Index) 37.9 kg/m2 04/07/2018 1:48pm Height 65 inches 5'5" Weight 222.00 lb BP Systolic 122 mmHg BP Diastolic 82 mmHg Pain Level 5 BMI (Body Mass Index) 36.9 kg/m2 04/06/2018 9:29am Height 65 inches 5'5" Weight 222.00 lb Heart Rate 72 /min BP Systolic Sitting 110 mmHg BP Diastolic Sitting 80 mmHg Respiratory Rate 14 /min Body Temperature 98.9 F BMI (Body Mass Index) 36.9 kg/m2 03/24/2018 1:45pm Height 65 inches 5'5" Weight 225.00 lb Heart Rate 72 /min BP Systolic 144 mmHg BP Diastolic 76 mmHg Respiratory Rate 18 /min Body Temperature 98.0 F Pain Level 6 BMI (Body Mass Index) 37.4 kg/m2 03/18/2018 9:23am Height 65 inches 5'5" Weight 222.00 lb pt. stated Heart Rate 75 /min BP Systolic Sitting 141 mmHg BP Diastolic Sitting 80 mmHg Respiratory Rate 14 /min Pain Level 975 BMI (Body Mass Index) 36.9 kg/m2 03/08/2018 11:40am Height 65 inches 5'5" Weight 220.00 lb Heart Rate 76 /min BP Systolic 128 mmHg BP Diastolic 74 mmHg Respiratory Rate 12 /min Body Temperature 99.0 F Pain Level 1 BMI (Body Mass Index) 36.6 kg/m2 03/04/2018 9:26am Height 65 inches 5'5" Weight 226.38 lb Heart Rate 62 /min BP Systolic Sitting 134 mmHg BP Diastolic Sitting 82 mmHg Respiratory Rate 14 /min Body Temperature 99.1 F BMI (Body Mass Index) 37.7 kg/m2 02/15/2018 11:05am Height 65 inches 5'5" Weight 222.00 lb Respiratory Rate 16 /min Body Temperature 97.6 F Pain Level 3 BMI (Body Mass Index) 36.9 kg/m2 Results Test Date Facility Test Result H/L Range Note Laboratory test 05/13/2018 [facility] C Reactive 28.38 mg/L High <8.[address] [place] [address] [phone] CBC Auto Diff 02/17/2018 [facility] White Blood 12.4 10^3/uL High 3.5-10.[address] [place] [address] [phone] Red Blood Count 4.15 10^6/uL N 4.00-5.40 Hemoglobin 11.7 g/dL Low 12.0-16.0 Hematocrit 35 % N 35-47 Mean Corpuscular Volume 85 fL N 80-97 Mean Corpuscular Hemoglobin 28 pg N 27-31 Mean Corpuscular HGB Conc 33 g/dL N 31-36 Red Cell Distribution Width 14 % N 10.5-15 Platelet Count 410 10^3/uL N 150-450 Mean Platelet Volume 7.5 fL N 7.4-10.4 Abs Neutrophils 8.9 10^3/uL High 1.5-7.7 Abs Lymphocytes 2.6 10^3/uL N 1.0-4.8 Abs Monocytes 0.7 10^3/uL N 0-0.8 Abs Eosinophils 0.1 10^3/uL N 0-0.6 Abs Basophils 0.1 10^3/uL N 0-0.2 Abs Nucleated RBC 0 10^3/uL Granulocyte % 71.6 % Lymphocyte % 20.8 % Monocyte % 5.3 % Eosinophil % 1.2 % Basophil % 1.1 % Nucleated Red Blood Cells % 0 Comp Metabolic Panel 02/17/2018 [facility] Sodium 139 mmol/L N 135-[address] [place] [address] [phone] Potassium 4.7 mmol/L N 3.5-5.0 Chloride 102 mmol/L N 101-111 Co2 Carbon Dioxide 28 mmol/L N 22-32 Anion Gap 9 mmol/L N 2-11 Glucose 161 mg/dL High 70-100 Blood Urea Nitrogen 12 mg/dL N 6-24 Creatinine 0.61 mg/dL N 0.51-0.95 BUN/Creatinine Ratio 19.7 N 8-20 Calcium 9.8 mg/dL N 8.6-10.3 Total Protein 7.0 g/dL N 6.4-8.9 Albumin 3.7 g/dL N 3.2-5.2 Globulin 3.3 g/dL N 2-4 Albumin/Globulin Ratio 1.1 N 1-3 Total Bilirubin 0.30 mg/dL N 0.2-1.0 Alkaline Phosphatase 85 U/L N 34-104 Alt 18 U/L N 7-52 Ast 23 U/L N 13-39 Egfr Non- 108.1 >60 Egfr 130.8 >60 2 Laboratory test 02/17/2018 [facility] C Reactive 23.15 mg/L High <8.01 [address] Protein [place] [id number] [phone] BROWN , [facility] 2 Because ethnic data is not always readily available, this report includes an eGFR for both -Americans and non- Americans. The National Kidney Disease Education Program (NKDEP) does not endorse the use of the MDRD equation for patients that are not between the ages of 18 and 70, are , have extremes of body size, muscle mass, or nutritional status, or are non- or non-. According to the National Kidney Foundation, irrespective of diagnosis, the stage of the disease is based on the level of kidney function: Stage Description GFR(mL/min/1.73 m(2)) 1 Kidney damage with normal or decreased GFR 90 2 Kidney damage with mild decrease in GFR 60-89 3 Moderate decrease in GFR 30-59 4 Severe decrease in GFR 15-29 5 Kidney failure <15 (or dialysis) 3 DR BROWN , [facility] Procedures Date Code Description Status 02/25/2018 99097 Arthroscopy Shoulder Debridement Extensive Completed 02/25/2018 94040 Arthroscopy Shoulder Debridement Extensive Completed 02/25/2018 80497 I & D Abscess/Hematoma Shoulder Completed 02/25/2018 25095 I & D Abscess/Hematoma Shoulder Completed 02/20/2018 87203 I & D Abscess/Hematoma Shoulder Completed 02/06/2018 07066 Arthroscopy,Shoulder,Distal Claviculectomy Incl Dist Completed Articular SR 02/06/2018 93320 Arthroscopy,Shoulder,Distal Claviculectomy Incl Dist Completed Articular SR 02/06/2018 40929 Arthroscopy Shoulder Debridement Extensive Completed 02/06/2018 58880 Arthroscopy Shoulder Debridement Extensive Completed 02/06/2018 85760 I & D Abscess/Hematoma Shoulder Completed 02/06/2018 44006 I & D Abscess/Hematoma Shoulder Completed 02/05/2018 63775 EKG, Interpretation Only Completed 02/05/2018 93147 I&D Of Abscess Complicated Completed 05/15/2015 46997 Holter Monitor Review (24 hr)dr holland & interp only Completed Encounters Type Date Location Provider Dx Diagnosis Office Visit 06/21/2018 [facility] M00.012 Staphylococcal 9:10a Infectious Thais Brown arthritis, left Diseases shoulder Office Visit 06/15/2018 [facility] M00.012 Staphylococcal 3:30p Services Of MD Jeanne arthritis, left C.M.A. 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 shoulder M25.512 Pain in left shoulder M86.112 Other acute osteomyelitis, left shoulder Office Visit 05/13/2018 [facility] M25.512 Pain in left 9:10a For Yudith Brown M.D. shoulder Diseases Office Visit 04/20/2018 [facility] [place] M00.012 Staphylococcal 9:30a For Yudith Brown M.D. 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, left shoulder Office Visit 03/04/2018 9:30a [facility] [place] [facility] M00.812 Arthritis due Infectious Thais Brown to other Diseases bacteria, left shoulder B95.61 Methicillin suscep staph infct causing dis classd elswhr Z79.2 prison (current) use of antibiotics 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, left shoulder Office Visit 02/25/2018 [facility] [place] [facility] M86.112 Other acute 10:39a For Infectious Thais Brown osteomyelitis, left Diseases shoulder L02.414 Cutaneous abscess of left upper limb R79.82 Elevated C-reactive protein (CRP) Office Visit 02/22/2018 10:20a [facility] [place] [facility] M00.812 Arthritis due Infectious Thais Brown to other Diseases bacteria, left shoulder L02.414 Cutaneous abscess of left upper limb R79.82 Elevated C-reactive protein (CRP) Office Visit 02/21/2018 10:07a [facility] [place] M00.812 Arthritis due Infectious Thais Brown to other Diseases bacteria, left shoulder L02.414 Cutaneous abscess of left upper limb Office Visit 02/09/2018 2:40p [facility] Jessica M00.9 [facility],harika Ignacio D.O. arthritis, Hospitalists unspecified E11.9 Type 2 diabetes mellitus without complications Office Visit 02/08/2018 2:40p [facility] Jessica M00.9 [facility]oc,Chapis ShineO. arthritis, Hospitalists unspecified E11.9 Type 2 diabetes mellitus without complications Office Visit 02/07/2018 2:40p [facility] [place] L02.414 [facility],harika Crump M.D. abscess of left Hospitalists upper limb B95.61 Methicillin suscep staph infct causing dis classd elswhr E11.9 Type 2 diabetes mellitus without complications Office Visit 02/07/2018 10:26a [facility] [place] M00.812 Arthritis due Infectious Thais Brown to other Diseases bacteria, left shoulder L02.414 Cutaneous abscess of left upper limb E11.9 Type 2 diabetes mellitus without complications Office Visit 02/06/2018 2:39p [facility] [place] L02.414 [facility]aneous Assoc,pc Thais Crump abscess of left Hospitalists upper limb E11.9 Type 2 diabetes mellitus without complications Office Visit 02/05/2018 2:39p [facility] Jessica L02.414 [facility],harika Ignacio D.O. abscess of left Hospitalists upper limb M25.512 Pain in left shoulder E11.9 Type 2 diabetes mellitus without complications Office Visit 02/05/2018 11:00a [facility] [place] L02.414 [facility] Of MD Jeanne abscess of left C.M.A. 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
[2018-09-13 15:44] VITALS: BP 130/75
--- NOTE | 2018-09-13 16:09 | UC ---
Back Pain HPI - HPI Summary HPI Summary: 44 yo female with the onset of lower back pain about a week ago Onset gradual and worsening no radiation at onset of symptoms had fever >102 and chills Had a WBC of 15,000 and neg blood culture no UTI symptoms still feels under the weather no n/v/d - History of Current Complaint Chief Complaint: UCBackPain Stated Complaint: LOWER BACK PAIN Time Seen by Provider: 09/13/18 15:32 Hx Last Menstrual Period: 09/13/2018 Onset/Duration: Sudden Onset, Lasting Days Timing: Constant Severity Initially: Mild Severity Currently: Moderate Pain Intensity: 7 Pain Scale Used: 0-10 Numeric Back Pain: Is Discrete @ - lumbar/midline Character: Dull, Aching Aggravating Factor(s): Movement, Lifting, Bending Alleviating Factor(s): Rest Associated Signs And Symptoms: Positive: Negative - Allergies/Home Medications Allergies/Adverse Reactions: Allergies Allergy/AdvReac Type Severity Reaction Status Date / Time sumatriptan [From Imitrex] Allergy anaph Verified 09/13/18 15:40 Home Medications: Home Medications metFORMIN* [Glucophage 1000 MG TAB *] 500 mg PO BID 09/13/18 [History] PMH/Surg Hx/FS Hx/Imm Hx - Additional Past Medical History Additional PMH: hx septic right ACjoint Previously Healthy: Yes Endocrine History: Diabetes, Dyslipidemia Other History Of: Negative For: Anticoagulant Therapy - Surgical History Surgical History: Yes Surgery Procedure, Year, and Place: TUBAL LIGATION. I AND D SURGERIES ON LEFT SHOULDER - Family History Known Family History: Positive: Hypertension, Diabetes - Social History Alcohol Use: Rare Alcohol Amount: once a month Substance Use Type: None Smoking Status (MU): Never Smoked Tobacco - Immunization History Most Recent Influenza Vaccination: 2018 Most Recent Pneumonia Vaccination: none Review of Systems All Other Systems Reviewed And Are Negative: Yes Constitutional: Positive: Fever, Chills, Fatigue Skin: Positive: Negative Eyes: Positive: Negative ENT: Positive: Negative Respiratory: Positive: Negative Cardiovascular: Positive: Negative Gastrointestinal: Positive: Negative Genitourinary: Positive: Negative Motor: Positive: Negative Neurovascular: Positive: Negative Musculoskeletal: Positive: Arthralgia Neurological: Positive: Negative Psychological: Positive: Negative Physical Exam Triage Information Reviewed: Yes Appearance: Well-Appearing, No Pain Distress, Well-Nourished Vital Signs: Initial Vital Signs Temp 98.5 F 09/13/18 15:41 Pulse 61 09/13/18 15:41 Resp 18 09/13/18 15:41 BP 130/75 09/13/18 15:41 Pulse Ox 97 09/13/18 15:41 Vital Signs Reviewed: Yes Eye Exam: Normal ENT: Positive: Hearing grossly normal, Pharynx normal, Pharyngeal erythema, Nasal congestion Dental Exam: Normal Neck: Positive: Supple, Nontender, No Lymphadenopathy Respiratory: Positive: Lungs clear, Normal breath sounds, No respiratory distress Cardiovascular: Positive: RRR, No Murmur Musculoskeletal: Positive: ROM Intact, No Edema Neurological: Positive: Alert Psychological Exam: Normal Skin Exam: Normal Images Front/Back of Body, Lg (Wolfe): 1 - midline tenderness Diagnostics - Laboratory Lab Results: ua + blood (on period), trace leuks Back Pain Course/Dx - Course Course Of Treatment: I explained to pt my concern re infectious cause for her pain - Differential Dx/Diagnosis Provider Diagnosis: Acute back pain Discharge - Sign-Out/Discharge Documenting (check all that apply): Patient Departure All imaging exams completed and their final reports reviewed: No Studies - Discharge Plan Condition: Fair Disposition: HOME-RECOMMEND TO ED Referrals: Wilian River PA [Primary Care Provider] - Additional Instructions: I suggest you go straight to the ER You recently were hospitalized with a septic joint and now have back pain associated with fever and chills You need a more extensive work up than we can do here - Billing Disposition and Condition Condition: FAIR Disposition: Home-Recommend to ED
--- NOTE | 2018-09-15 07:07 | UC ---
- Progress Note Progress Note: Chart Reviewed Urine culture finalized with no growth Patient was instructed to go to ER on visit date No change in plan from the urgent care perspective Course/Dx - Diagnoses Provider Diagnoses: Acute back pain Discharge - Sign-Out/Discharge Documenting (check all that apply): Post-Discharge Follow Up All imaging exams completed and their final reports reviewed: No Studies - Discharge Plan Condition: Fair Disposition: HOME-RECOMMEND TO ED Referrals: Wilian River PA [Primary Care Provider] - Additional Instructions: I suggest you go straight to the ER You recently were hospitalized with a septic joint and now have back pain associated with fever and chills You need a more extensive work up than we can do here - Billing Disposition and Condition Condition: FAIR Disposition: Home-Recommend to ED
== END 2018-09-13 16:10 | disposition home health service (06) ==
LOC: UCEAST 15:24
DX: M54.5 Low back pain (principal); E11.9 Type 2 diabetes mellitus without complications; E78.5 Hyperlipidemia, unspecified; Z79.84 Long term (current) use of oral hypoglycemic drugs
CPT/HCPCS: 81002; 87086; 99212; G0463